=== PATIENT | female | born 1960 | race Caucasian/White ===

== ENCOUNTER → 2019-09-24 08:53 | Outpatient (CLI) | payer OTHER, SELFPAY ==
--- NOTE | ~2019-09-24 | MM_ITS ---
EXAMINATION: MM diagnostic earnestine BI w marc HISTORY: Breast pain TECHNIQUE: Additional 3-D tomosynthesis images of the breasts were performed and synthetic 2-D images were generated. CAD analysis was submitted and interpreted. COMPARISON: 12/09/2018 BREAST PARENCHYMAL COMPOSITION: Breast composed of scattered areas of fibroglandular density FINDINGS: There are no suspicious masses, calcifications or architectural distortion in either breast to suggest malignancy. IMPRESSION: 1. No mammographic evidence for malignancy. 2. Routine yearly screening mammogram and regular clinical breast examination are recommended. BI-RADS Category 1: Negative Reviewed, dictated and finalized at location A. IMPRESSION: 1. No mammographic evidence for malignancy. 2. Routine yearly screening mammogram and regular clinical breast examination a re recommended. BI-RADS Category 1: Negative
== END ==
PROVIDERS: Visit Provider Advanced Practice Midwife
DX: N64.4 Mastodynia (principal)
CPT/HCPCS: 77062; 77066; G0279

== ENCOUNTER 2021-05-01 15:41 | Outpatient (CLI) | payer OTHER, SELFPAY ==
--- NOTE | ~2021-05-01 | CT_ITS ---
EXAMINATION: CT lung screening DATE: 05/01/2021 15:53 INDICATION: Personal history of nicotine dependence, current smoker with 30 pack year history TECHNIQUE: Computed tomography (CT) of the chest was performed without intravenous contrast. The dose -length product (DLP) was 89.44 mGy-cm. Automated exposure control and iterative reconstruction techn [employer] Shiftue were employed. COMPARISON: None FINDINGS: There is mild emphysema. No suspicious pulmonary nodules are identified. The lungs are free of acute opacities. There is no pleural effusion or pneumothorax. No pathologically enlarged thoraci c lymph nodes are identified. The heart size is normal. IMPRESSION: 1. Lung-RADS category 1: Negative. Continue annual screening with noncontrast low-dose chest CT in 12 months. Reviewed, dictated and finalized at location A. 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 Lung-RADS category 1: Negative. Continue annual screening with noncontrast l ow-dose chest CT in 12 months.
== END 2021-05-01 15:42 | disposition home or self-care (01) ==
LOC: ANHIMG 15:42
PROVIDERS: PCP Family Medicine; Visit Provider Nurse Practitioner Family
DX: Z87.891 Personal history of nicotine dependence (principal)
CPT/HCPCS: 71271

== ENCOUNTER 2021-09-17 09:04 | Outpatient (CLI) | payer OTHER, SELFPAY ==
[2021-09-17 19:52] LABS: Cholesterol 142 mg/dL (0-200); HDL Direct 45 mg/dL; Triglycerides 94 mg/dL (<150)
[2021-09-17 20:03] LABS: LDL Cholesterol Direct 65 mg/dL
[2021-09-20 12:51] LABS: Alanine Aminotransferase 20 U/L (6-35); Albumin Level 4.4 g/dL (3.5-5.1); Alkaline Phosphatase 72 U/L (38-126); Anion Gap 9 mmol/L (8-16); Aspartate Amino Transferase 22 U/L (14-36); Bilirubin,Total 0.4 mg/dL (0.2-1.3); Blood Urea Nitrogen 15 mg/dL (7-17); Calcium 9.6 mg/dL (8.4-10.2); Carbon Dioxide 22 mmol/L (22-30); Chloride 109 mmol/L (98-107); Estimated Glomerular Filt Rate > 60; Glucose 128 mg/dL (65-110); Potassium 4.2 mmol/L (3.4-5.0); Sodium 140 mmol/L (137-145)
== END 2021-09-17 09:05 | disposition home or self-care (01) ==
LOC: ANHGOSHLAB 09:05
PROVIDERS: PCP Family Medicine; Visit Provider Nurse Practitioner Family
DX: E78.5 Hyperlipidemia, unspecified (principal)
CPT/HCPCS: 36415; 80053; 80061

== ENCOUNTER 2021-09-26 08:31 | Outpatient (CLI) | payer OTHER, SELFPAY ==
[2021-09-26 20:09] LABS: Alanine Aminotransferase 18 U/L (6-35); Alkaline Phosphatase 72 U/L (38-126); Anion Gap 6 mmol/L (8-16); Aspartate Amino Transferase 26 U/L (14-36); Bilirubin,Total 0.5 mg/dL (0.2-1.3); Blood Urea Nitrogen 16 mg/dL (7-17); Calcium 8.9 mg/dL (8.4-10.2); Carbon Dioxide 27 mmol/L (22-30); Chloride 104 mmol/L (98-107); Estimated Glomerular Filt Rate > 60; Glucose 147 mg/dL (65-110); Potassium 4.3 mmol/L (3.4-5.0); Sodium 137 mmol/L (137-145)
[2021-09-26 20:15] LABS: Basophils Absolute Auto 0.1 K/mm3 (0.0-0.1); Basophils Percent Auto 0.7 % (0.2-1.2); Eosinophils Percent Auto 0.5 % (0-4.4); Hematocrit 45.6 % (37.0-47.0); Hemoglobin 14.5 g/dL (12.0-15.0); Immature Granulocyte Absolute 0.04 K/mm3 (0.00-0.031); Immature Granulocyte Percent A 0.5 % (0-0.5); Lymphocytes Percent Auto 15.9 % (18.3-44.2); Mean Corpuscular HGB Conc 31.8 g/dl (32-36); Mean Corpuscular Hemoglobin 31.7 pg (26-34); Mean Corpuscular Volume 99.8 fl (80-100); Mean Platelet Volume 10.5 fl (7.4-10.4); Monocytes Absolute Auto 0.6 K/mm3 (0.1-0.6); Neutrophils Absolute Auto 6.2 K/mm3 (1.3-6.7); Neutrophils Percent Auto 75.4 % (45.5-73.1); Platelet Count Result 192 k/mm3 (150-375); Red Blood Count 4.57 M/mm3 (4.2-5.4); Red Cell Distribution Width 13.2 % (11.5-14.5); White Blood Count 8.2 K/mm3 (4.5-10.0)
[2021-09-26 20:36] LABS: Microalbumin Urine Random 12.8 mg/L (0-16.7)
[2021-09-26 20:41] LABS: Creatinine Urine 43.3 mg/dL; MALB Creatinine Ratio 29.6 mg/g (0-30)
== END 2021-09-26 08:32 | disposition home or self-care (01) ==
LOC: ANHGOSHLAB 08:32
PROVIDERS: PCP Family Medicine; Visit Provider Nurse Practitioner Family
DX: E11.9 Type 2 diabetes mellitus without complications (principal); I10 Essential (primary) hypertension
CPT/HCPCS: 36415; 80053; 82043; 83036; 85025

== ENCOUNTER → 2021-11-23 15:20 | Outpatient (CLI) | payer OTHER, SELFPAY ==
--- NOTE | ~2021-11-23 | MM_ITS ---
EXAMINATION: MM screening earnestine BI w marc HISTORY: Screening mammogram, family history of breast cancer in her sister. TECHNIQUE: Craniocaudal and mediolateral oblique 3-D tomosynthesis images were obtained and synthetic 2-D images were generated. CAD analysis was submitted and interpreted. COMPARISON: 09/24/2019, 12/09/2018, 06/11/2018 BREAST PARENCHYMAL COMPOSITION: There are scattered areas of fibroglandular density. FINDINGS: There is no suspicious mass, calcification, or architectural distortion to suggest malignan cy in either breast. There has been no suspicious interval change. IMPRESSION: 1. No mammographic evidence of malignancy. 2. Recommend routine screening mammography in one year. BI-RADS Category 1: Negative Reviewed, dictated and finalized at location A.
== END ==
PROVIDERS: PCP Family Medicine; Visit Provider Nurse Practitioner Family
DX: Z12.31 Encounter for screening mammogram for malignant neoplasm of breast (principal)
CPT/HCPCS: 77063; 77067

== ENCOUNTER 2022-07-15 13:03 | Emergency (ER) | payer OTHER, SELFPAY ==
[2022-07-15 13:25] VITALS: BP 124/53; PULSE 86; RESP 16; TEMP 36.1; O2SAT 99
--- NOTE | 2022-07-15 13:50 | ED.URI ---
HPI - URI/Sore Throat General Chief Complaint: Upper Respiratory Infection Stated Complaint: sorethroat,fever Time Seen by Provider: 07/15/22 13:50 Source: patient Mode of arrival: ambulatory Limitations: no limitations History of Present Illness HPI Narrative: 62-year-old female presents with complaint of sore throat, fatigue, body aches, chills, headaches since yesterday. 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 Denies nausea vomiting diarrhea. No chest pain or shortness breath. All systems reviewed and negative except as noted above. Related Data Home Medications Medication Instructions Recorded Confirmed aspirin 81 mg tablet,delayed 81 mg PO DAILY 03/15/19 07/15/22 release (Rachael Low Dose Aspirin) cholecalciferol (vitamin D3) 50 50 mcg PO DAILY 09/25/19 07/15/22 mcg (2,000 unit) capsule biotin 1 mg capsule 1 mg PO DAILY 09/17/21 07/15/22 meloxicam 7.5 mg tablet 7.5 mg PO DAILY 07/15/22 07/15/22 trazodone 50 mg tablet 50 mg PO QHS PRN Insomnia 07/15/22 07/15/22 Allergies Allergy/AdvReac Type Severity Reaction Status Date / Time erythromycin base AdvReac Intermediate Nausea and Verified 07/15/22 13:42 Vomiting methotrexate AdvReac Intermediate hair loss Verified 07/15/22 13:42 morphine AdvReac Intermediate vomiting Verified 07/15/22 13:42 amoxicillin AdvReac Mild yeast Verified 07/15/22 13:42 infections lovastatin AdvReac Mild aching in Verified 07/15/22 13:42 legs Review of Systems Review of Systems: CONSTITUTIONAL: Denies fever. Reports chills, or sweats. EYES: Denies visual changes, redness, or discharge. ENT: Denies rhinorrhea, congestion . Reports sore throat. Deniesotalgia. CARDIOVASCULAR: Denies chest pain, palpitations, or edema. RESPIRATORY: Denies cough or dyspnea. GASTROINTESTINAL: Denies abdominal pain, nausea, vomiting, or diarrhea. GENITOURINARY: Denies dysuria or hematuria. SKIN: Denies rash or itching. MUSCULOSKELETAL: Denies back pain, joint pain, or myalgia. NEUROLOGIC: reports headache. Denies numbness, or weakness. PSYCHIATRIC: Denies anxiety or depression. All other systems reviewed are negative, except as documented in HPI. [facility] Past Medical History Medical History (Updated 07/15/22 @ 13:55 by Iman Phelan NP) Arthritis Biceps tendon tear Emphysema/COPD Essential (primary) hypertension GERD without esophagitis Herpes zoster without complication Insomnia Left rotator cuff tear Follows with ortho for injections KEVIN on CPAP Other hyperlipidemia Plaque psoriasis Tobacco use disorder 40 pack-year history Type 2 diabetes mellitus without complications Vitamin D deficiency Surgical History Surgical History H/O cervical spine surgery (~2009) H/O section 1989, 1993 H/O elbow surgery (~2018) H/O rotator cuff surgery (~08/2020) H/O skin graft (~1977) History of appendectomy (~1979) History of carpal tunnel surgery of left wrist (~04/2021) History of decompression of ulnar nerve (~04/2021) left History of left knee replacement (~2004) History of right oophorectomy (~1984) Family History Family History Mother Family history of diabetes mellitus in first degree relative Sibling Lung cancer Lung nodule Social History Social History (Updated 03/25/22 @ 15:32 by Lucy Hardin MA) Social History: Patient is , she and her Elian live in [place]. They enjoy watching their 3 grandchildren (a 3 y/o and twin babies b. 10/2020) every Alvarez night. 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 Smoking packs per day: 0.75 Smoking cigarettes per day: 15.0 Years smoked: 35 Smoking pack-years: 26.25 Smoking status: Current every day smoker Tobacco type: cigarettes Alcohol intake: current Drinks per week: 8 Substance use: never S
== END 2022-07-15 14:00 | disposition home or self-care (01) ==
PROVIDERS: Emergency Provider Nurse Practitioner Family; PCP Family Medicine
DX: J02.0 Streptococcal pharyngitis (principal); F17.210 Nicotine dependence, cigarettes, uncomplicated; M19.90 Unspecified osteoarthritis, unspecified site; J44.9 Chronic obstructive pulmonary disease, unspecified; K21.9 Gastro-esophageal reflux disease without esophagitis; G47.33 Obstructive sleep apnea (adult) (pediatric); E11.9 Type 2 diabetes mellitus without complications; E78.49 Other hyperlipidemia; E55.9 Vitamin D deficiency, unspecified; Z96.652 Presence of left artificial knee joint; Z79.82 Long term (current) use of aspirin
CPT/HCPCS: 87880; 99213; G0463

== ENCOUNTER 2022-12-12 12:13 | Outpatient (CLI) | payer OTHER, SELFPAY ==
--- NOTE | ~2022-12-12 | MMUS_ITS ---
EXAMINATION: MM diagnostic earnestine BI w marc, US breast LT limited HISTORY: Patient felt lump at 6:00 last week, almond size. TECHNIQUE: Bilateral full field ML, MLO and CC and left spot ML and CC 3-D tomosynthesis images were performed and synthetic 2-D images were generated. CAD analysis was submitted and interpreted. High r esolution targeted ultrasound at area of clinical complaint of left breast lump at 6:00 breast ultras ound was performed. COMPARISON: 11/23/2021 bilateral screening mammogram 09/20/2019 bilateral diagnostic mammogram BREAST PARENCHYMAL COMPOSITION: There are scattered areas of fibroglandular density. FINDINGS: MAMMOGRAPHIC FINDINGS: No suspicious mass or architectural distortion, malignant calcification, skin thickening or retractio n or significant new or developing density is detected. ULTRASOUND: No suspicious mass, shadowing, cyst or other significant abnormality is detected at 6:00 3 cm from th e nipple at the area of clinical complaint. IMPRESSION: 1. No mammographic or sonographic evidence of malignancy 2. Routine annual mammographic screening is recommended BI-RADS Category 1: Negative Reviewed, dictated and finalized at location A. IMPRESSION: 1. No mammographic or sonographic evidence of malignancy 2. Routine annual mammographic screening is recommended BI-RADS Category 1: Negative
== END 2022-12-12 12:14 | disposition home or self-care (01) ==
PROVIDERS: PCP Family Medicine; Visit Provider Nurse Practitioner Family
DX: N63.0 Unspecified lump in unspecified breast (principal); R92.8 Other abnormal and inconclusive findings on diagnostic imaging of breast
CPT/HCPCS: 76642; 77062; 77066; G0279

== ENCOUNTER 2023-02-03 09:21 | Emergency (ER) | payer OTHER, SELFPAY ==
[2023-02-03] VITALS (8 sets, daily range): BP systolic 118–152; BP diastolic 57–87; PULSE 74–98; RESP 16–20; TEMP 36.6–36.8; O2SAT 98–100
[2023-02-03 11:54] LABS: Basophils Percent Auto 0.4 % (0.2-1.2); Eosinophils Percent Auto 0.1 % (0-4.4); Hematocrit 45.8 % (37.0-47.0); Hemoglobin 15.5 g/dL (12.0-15.0); Immature Granulocyte Absolute 0.09 K/mm3 (0.00-0.031); Immature Granulocyte Percent A 0.8 % (0-0.5); Lymphocytes Absolute Auto 1.44 K/mm3 (0.9-3.2); Lymphocytes Percent Auto 12.6 % (18.3-44.2); Mean Corpuscular HGB Conc 33.8 g/dl (32-36); Mean Corpuscular Hemoglobin 31.6 pg (26-34); Mean Corpuscular Volume 93.3 fl (80-100); Mean Platelet Volume 9.9 fl (7.4-10.4); Monocytes Absolute Auto 0.8 K/mm3 (0.1-0.6); Monocytes Percent Auto 6.6 % (2.6-8.5); Neutrophils Absolute Auto 9.1 K/mm3 (1.3-6.7); Neutrophils Percent Auto 79.5 % (45.5-73.1); Platelet Count Result 237 k/mm3 (150-375); Red Blood Count 4.91 M/mm3 (4.2-5.4); Red Cell Distribution Width 13.2 % (11.5-14.5); White Blood Count 11.4 K/mm3 (4.5-10.0)
[2023-02-03 12:09] LABS: Alanine Aminotransferase 23 U/L (6-35); Albumin Level 4.8 g/dL (3.5-5.1); Alkaline Phosphatase 66 U/L (38-126); Anion Gap 10 mmol/L (8-16); Aspartate Amino Transferase 35 U/L (14-36); Bilirubin,Total 0.9 mg/dL (0.2-1.3); Blood Urea Nitrogen 27 mg/dL (7-17); Calcium 9.7 mg/dL (8.4-10.2); Carbon Dioxide 21 mmol/L (22-30); Chloride 103 mmol/L (98-107); Estimated CRCL calculation 67 ml/min; Estimated Glomerular Filt Rate > 60; Glucose 146 mg/dL (65-110); Potassium 4.8 mmol/L (3.4-5.0); Sodium 134 mmol/L (137-145)
--- NOTE | 2023-02-03 12:57 | ED.GENADULT ---
HPI - General Adult General Chief complaint: Recheck/Abnormal Lab/Rx Stated complaint: HIGH BS Time Seen by Provider: 02/03/23 12:06 History of Present Illness HPI narrative: Patient is a 62-year-old female who presents ER for evaluation of elevated blood sugars. She recently underwent corticosteroid injection into her right shoulder 3 days ago. she has had elevated blood sugars since then occasionally spiking in the 400s. No fevers or chills or sweats. No swelling or redness of the joint. She has no polydipsia or polyuria. Blood sugars spike after eating. She has been taking her home medication. Related Data Home Medications Medication Instructions Recorded Confirmed aspirin 81 mg tablet,delayed 81 mg PO DAILY 03/15/19 02/03/23 release (Rachael Low Dose Aspirin) cholecalciferol (vitamin D3) 50 50 mcg PO DAILY 09/25/19 02/03/23 mcg (2,000 unit) capsule biotin 1 mg capsule 1 mg PO DAILY 09/17/21 02/03/23 meloxicam 7.5 mg tablet 7.5 mg PO DAILY 07/15/22 09/23/22 empagliflozin 25 mg tablet mg 02/03/23 (Jardiance) Allergies Allergy/AdvReac Type Severity Reaction Status Date / Time erythromycin base AdvReac Intermediate Nausea and Verified 02/03/23 11:44 Vomiting methotrexate AdvReac Intermediate hair loss Verified 02/03/23 11:44 morphine AdvReac Intermediate vomiting Verified 02/03/23 11:44 amoxicillin AdvReac Mild yeast Verified 02/03/23 11:44 infections lovastatin AdvReac Mild aching in Verified 02/03/23 11:44 legs Review of Systems Review of Systems: All systems reviewed & are unremarkable except as noted in HPI and below Constitutional: Constitutional: Denies chills, Denies fatigue and Denies fever(s) ENT: Denies nasal congestion and Denies sore throat Cardiovascular: Cardiovascular: Denies chest pain, Denies rapid heart rate and Denies radiating jaw, neck or arm pain Respiratory: Respiratory: Denies cough and Denies dyspnea Gastrointestinal: Gastrointestinal: Denies abdominal pain, Denies nausea and Denies vomiting PMF Past Medical History Medical History Arthritis Biceps tendon tear Emphysema/COPD Essential (primary) hypertension GERD without esophagitis Herpes zoster without complication Insomnia Left rotator cuff tear Follows with ortho for injections KEVIN on CPAP Other hyperlipidemia Plaque psoriasis Tobacco use disorder 40 pack-year history Type 2 diabetes mellitus without complications Vitamin D deficiency Surgical History Surgical History H/O cervical spine surgery (~2009) H/O section 1989, 1993 H/O elbow surgery (~2018) H/O rotator cuff surgery (~08/2020) H/O skin graft (~1977) History of appendectomy (~1979) History of carpal tunnel surgery of left wrist (~04/2021) History of decompression of ulnar nerve (~04/2021) left History of left knee replacement (~2004) History of right oophorectomy (~1984) Family History Family History Mother Family history of diabetes mellitus in first degree relative Sibling Lung cancer Lung nodule Social History Social History Social History: Patient is , she and her Elian live in [place]. They enjoy watching their 3 grandchildren (a 3 y/o and twin babies b. 10/2020) every Friday night. 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 Smoking packs per day: 0.75 Smoking cigarettes per day: 15.0 Years smoked: 35 Smoking pack-years: 26.25 Smoking status: Current every day smoker Tobacco type: cigarettes Alcohol intake: current Drinks per week: 8 Substance use: never Substance use type: does not use Lack of Transportation: No Lack of Food: Never True Current Housing: I Have Housing Concerned About Future Housing: No Difficulty Pa
[2023-02-03 22:53] LABS: Hemoglobin A1C 6.6 % (<5.7)
== END 2023-02-03 13:43 | disposition home or self-care (01) ==
PROVIDERS: Emergency Provider Emergency Medicine; PCP Family Medicine
DX: E11.65 Type 2 diabetes mellitus with hyperglycemia (principal); J43.9 Emphysema, unspecified; E78.49 Other hyperlipidemia; E55.9 Vitamin D deficiency, unspecified; G47.33 Obstructive sleep apnea (adult) (pediatric); K21.9 Gastro-esophageal reflux disease without esophagitis; M19.90 Unspecified osteoarthritis, unspecified site; F17.210 Nicotine dependence, cigarettes, uncomplicated; Z96.652 Presence of left artificial knee joint; Z90.721 Acquired absence of ovaries, unilateral; Z79.4 Long term (current) use of insulin; Z79.84 Long term (current) use of oral hypoglycemic drugs; Z79.82 Long term (current) use of aspirin
CPT/HCPCS: 36415; 80053; 83036; 85025; 99283

== ENCOUNTER 2023-10-05 14:48 | Emergency (ER) | payer OTHER, SELFPAY ==
[2023-10-05 14:59] VITALS: BP 143/61; PULSE 86; RESP 18; TEMP 36.6; O2SAT 98
[2023-10-05] MEDS: TETANUS,DIPHTHERIA,AC PERTUSSIS ADULT (0.5 ML) BOOSTRIX IM (15:27)
--- NOTE | 2023-10-05 15:39 | ED.WOUNDLAC ---
HPI - Wound/Laceration General Chief Complaint: Wound/Laceration Stated Complaint: would laceration lt hand Time Seen by Provider: 10/05/23 15:23 Source: patient and RN notes reviewed Mode of arrival: ambulatory Limitations: no limitations History of Present Illness HPI narrative: Patient presents today complaining of a laceration to her left 1st finger that was sustained just prior to arrival. And her were working on a mailbox when the electric screwdriver slipped and the bit cut the dorsum of her finger. Denies numbness or tingling in the finger. Currently rates her pain 6/10. She is not up-to-date on her tetanus vaccine. Related Data Home Medications Medication Instructions Recorded Confirmed aspirin 81 mg tablet,delayed 81 mg PO DAILY 03/15/19 10/05/23 release (Rachael Low Dose Aspirin) cholecalciferol (vitamin D3) 50 50 mcg PO DAILY 09/25/19 10/05/23 mcg (2,000 unit) capsule biotin 1 mg capsule 1 mg PO DAILY 09/17/21 10/05/23 Allergies Allergy/AdvReac Type Severity Reaction Status Date / Time erythromycin base AdvReac Intermediate Nausea and Verified 10/05/23 15:13 Vomiting methotrexate AdvReac Intermediate hair loss Verified 10/05/23 15:13 morphine AdvReac Intermediate vomiting Verified 10/05/23 15:13 amoxicillin AdvReac Mild yeast Verified 10/05/23 15:13 infections lovastatin AdvReac Mild aching in Verified 10/05/23 15:13 legs Review of Systems Review of Systems: CONSTITUTIONAL: Denies body aches, fever, chills, or sweats. EYES: Denies visual changes, redness, or discharge. ENT: Denies rhinorrhea, congestion, sore throat, or otalgia. CARDIOVASCULAR: Denies chest pain, palpitations, or edema. RESPIRATORY: Denies cough or dyspnea. GASTROINTESTINAL: Denies abdominal pain, nausea, vomiting, or diarrhea. GENITOURINARY: Denies dysuria or hematuria. SKIN: Denies rash, itching. + finger laceration MUSCULOSKELETAL: Denies back pain, joint pain, or myalgia. NEUROLOGIC: Denies headache, numbness, tingling, or weakness. PSYCH: Denies depression or anxiety. [facility] Past Medical History Medical History Arthritis Biceps tendon tear Emphysema/COPD Essential (primary) hypertension GERD without esophagitis Herpes zoster without complication Insomnia Left rotator cuff tear Follows with ortho for injections KEVIN on CPAP Other hyperlipidemia Plaque psoriasis Tobacco use disorder 40 pack-year history Type 2 diabetes mellitus without complications Vitamin D deficiency Surgical History Surgical History H/O cervical spine surgery (~2009) H/O section 1989, 1993 H/O elbow surgery (~2018) H/O rotator cuff surgery (~08/2020) H/O skin graft (~1977) History of appendectomy (~1979) History of carpal tunnel surgery of left wrist (~04/2021) History of decompression of ulnar nerve (~04/2021) left History of left knee replacement (~2004) History of right oophorectomy (~1984) Family History Family History Mother Family history of diabetes mellitus in first degree relative Sibling Lung cancer Lung nodule Social History Social History Social History: Patient is , she and her Elian live in [place]. They enjoy watching their 3 grandchildren (a 3 y/o and twin babies b. 10/2020) every Friday night. 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 Smoking packs per day: 0.75 Smoking cigarettes per day: 15.0 Years smoked: 35 Smoking pack-years: 26.25 Smoking status: Current every day smoker Tobacco type: cigarettes Alcohol intake: current Drinks per week: 8 Substance use: never Substance use type: does not use Lack of Transportation: No Lack of Food: Never True Current Housing: I H
[2023-10-05] MEDS: LIDOCAINE HCL 1% LOCAL INJ 2 ML AMPUL 4 ML INFILTRATE (15:42)
== END 2023-10-05 16:08 | disposition home or self-care (01) ==
PROVIDERS: Emergency Provider Nurse Practitioner; PCP Family Medicine
DX: S61.012A Laceration without foreign body of left thumb without damage to nail, initial encounter (principal); W29.8XXA Contact with other powered hand tools and household machinery, initial encounter; Z23 Encounter for immunization; F17.210 Nicotine dependence, cigarettes, uncomplicated; J44.9 Chronic obstructive pulmonary disease, unspecified; I10 Essential (primary) hypertension; K21.9 Gastro-esophageal reflux disease without esophagitis; G47.33 Obstructive sleep apnea (adult) (pediatric); E11.9 Type 2 diabetes mellitus without complications; E55.9 Vitamin D deficiency, unspecified; Z79.82 Long term (current) use of aspirin; M19.90 Unspecified osteoarthritis, unspecified site; L40.0 Psoriasis vulgaris
CPT/HCPCS: 12001; 90471; 90715; 99212; G0463

== ENCOUNTER 2024-02-10 15:20 | Outpatient (CLI) | payer OTHER, SELFPAY ==
--- NOTE | 2024-02-10 15:30 | ECG_ITS ---
Test Date: 2024-02-10 15:50:58 Measurements Intervals Jacobson Rate: 87 P: 68 NH: 163 QRS: 67 QRSD: 73 T: 55 QT: 322 QTc: 388 Interpretive Statements SINUS RHYTHM WARNING: DATA QUALITY MAY AFFECT INTERPRETATION No previous ECG available for comparison Electronically Signed On 02-11-2024 11:47:17 MOLD INSPECTOR by Ti Queen
[2024-02-10 16:33] LABS: Alanine Aminotransferase 17 U/L (6-35); Albumin Level 4.2 g/dL (3.5-5.1); Alkaline Phosphatase 74 U/L (38-126); Anion Gap 2 mmol/L (4-12); Aspartate Amino Transferase 21 U/L (14-36); Bilirubin,Total 0.4 mg/dL (0.2-1.3); Blood Urea Nitrogen 21 mg/dL (7-17); Calcium 9.2 mg/dL (8.4-10.2); Carbon Dioxide 31 mmol/L (22-30); Chloride 103 mmol/L (98-107); Estimated Glomerular Filt Rate > 60; Glucose 233 mg/dL (65-110); Potassium 4.2 mmol/L (3.4-5.0); Sodium 136 mmol/L (137-145)
== END 2024-02-10 15:21 | disposition home or self-care (01) ==
LOC: ANHSURGERY 15:23
PROVIDERS: PCP Family Medicine; Visit Provider Obstetrics & Gynecology
DX: E11.9 Type 2 diabetes mellitus without complications (principal); I10 Essential (primary) hypertension
CPT/HCPCS: 36415; 80053; 93005

== ENCOUNTER 2024-02-17 01:50 | Day surgery (SDC) | payer OTHER, SELFPAY ==
--- NOTE | 2024-02-09 15:11 | PC.NURSE ---
Report to the Outpatient Waiting Room, entrance under the green pavilion located off [facility], at time 6:00am on date __[id number] . Planned Procedure Time: 7:30am__.? Time changes happen often and if your time is changed the preop area will call you the afternoon before. - You and your visitor will be asked to self-screen and do not enter if you have any COVID symptoms. Please call surgeon if you need to reschedule. - A mask is optional within the hospital at this time. Patients may have clear liquids (water, carbonated beverages, clear teas, apple juice) until 3 hours prior to surgery with a maximum of 20 ounces. - No food from midnight until time of surgery and no smoking. This includes no chewing gum, candy or mints. Take only the following medications with a SIP of water on the morning of surgery: none DO NOT STOP ANY OF YOUR OTHER PRESCRIPTION MEDICATIONS PRIOR TO SURGERY EXCEPT THE FOLLOWING: Please do not take your vitamin d3 or your biotin for 3 days prior to surgery. Your last dose is: 02-13-24. Hold all medications the morning of surgery. Including: Atorvastatin, Lisinopril, Metformin and Prilosec. You may take your diabetic medications the evening before. Please no make-up, nail pitcairn islander, hairspray, perfume, deodorant, or body powder the day of surgery.? No jewelry (including any body piercings) or valuables the day of surgery, leave them at home.? Please take a shower or bath the night before, or the morning of, surgery with an antibacterial soap.? Wear comfortable, loose fitting clothing.? - Jewelry must be removed prior to entering the operating room.? Rings and piercings that are not removed may be cut off. - The hospital will not accept responsibility for valuables.? - Please leave all valuables, including medications, at home the day of surgery. If you are going home after surgery, a licensed limb driver must drive you home.? - NO public transportation without another adult if you receive anesthesia. - We recommend that an adult stay with you for 24 hours following discharge. - We also recommend that you do not drive, make important decision, drink alcoholic beverages, or take any drugs that were not prescribed by your health care provider for at least 24 hours after your discharge time. Follow any additional instructions given to you from your surgeon. Telephone instructions given to Zaina (Patient) and asked if any additional questions and then verbalized understanding. Patient advised to call surgeon office or pre surgery nurse liaison [phone] if any additional questions.
[2024-02-17] VITALS (8 sets, daily range): BP systolic 97–144; BP diastolic 43–60; PULSE 73–90; RESP 10–18; TEMP 36.8–36.9; O2SAT 93–100
--- NOTE | 2024-02-17 06:40 | WPDANESEPPF ---
Anes - Initial Pre Proc Eval Procedure: Operation Date: 02/17/24 07:30 Proposed Procedures p Laparoscopic Left Salpingo-oophorectomy - Michael Mcdonald MD Date/Time: 02/17/24 06:40 Surgeon: Michael Mcdonald MD Pre Op Diagnosis: Lt Ovary Mass Patient Data Age: 63 Gender: F Height: Weight: Allergies Allergy/AdvReac Type Severity Reaction Status Date / Time erythromycin base AdvReac Intermediate Nausea and Verified 02/17/24 06:46 Vomiting methotrexate AdvReac Intermediate hair loss Verified 02/17/24 06:46 morphine AdvReac Intermediate vomiting Verified 02/17/24 06:46 amoxicillin AdvReac Mild yeast Verified 02/17/24 06:46 infections lovastatin AdvReac Mild aching in Verified 02/17/24 06:46 legs Home Medications ?Medication ?Instructions ?Recorded ?Confirmed ?Type aspirin 81 mg tablet,delayed 81 mg PO DAILY 03/15/19 02/09/24 History release (Rachael Low Dose Aspirin) cholecalciferol (vitamin D3) 50 50 mcg PO DAILY 09/25/19 02/09/24 History mcg (2,000 unit) capsule flash glucose scanning reader #1 ea 09/11/20 02/09/24 Rx (FreeStyle Hien 2 Temperance) biotin 1 mg capsule 1 mg PO DAILY 09/17/21 02/09/24 History omeprazole 40 mg capsule,delayed 40 mg PO DAILY PRN for 04/29/23 02/09/24 Rx release gastroesophageal reflux disease #90 caps atorvastatin 10 mg tablet (Lipitor) 10 mg PO QHS #90 tabs 09/17/23 02/09/24 Rx fluconazole 100 mg tablet 100 mg PO DAILY #1 tablet 09/29/23 02/09/24 Rx (Diflucan) trazodone 50 mg tablet 50 mg PO QHS PRN Insomnia #90 tabs 11/11/23 02/09/24 Rx lisinopril 10 mg tablet 10 mg PO DAILY #90 tabs 11/21/23 02/09/24 Rx empagliflozin 25 mg tablet 25 mg PO DAILY #90 tabs 12/11/23 02/09/24 Rx (Jardiance) flash glucose sensor (FreeStyle #6 ea 12/16/23 02/09/24 Rx Hien 2 Sensor kit) pen needle, diabetic 31 gauge x See Rx Instructions .Route 01/08/24 02/09/24 Rx 5/16 (BD Ultra-Fine Short Pen .COMPLEX #100 ea Needle) insulin glargine 100 unit/mL 36 unit subcut HS 02/09/24 02/09/24 History subcutaneous solution metformin 1,000 mg tablet 500 mg PO BID 02/09/24 02/09/24 History Patient hx anesthesia problems: post op nausea/vomiting Family hx anesthesia problems: none Results Review: All pre-operative results and documents have been reviewed as part of the pre-operative evaluation. [facility] Past Medical History Medical History Arthritis Biceps tendon tear Emphysema/COPD Essential (primary) hypertension GERD without esophagitis Herpes zoster without complication Insomnia Left rotator cuff tear Follows with ortho for injections KEVIN on CPAP Other hyperlipidemia Plaque psoriasis Tobacco use disorder 40 pack-year history Type 2 diabetes mellitus without complications Vitamin D deficiency Surgical History Surgical History H/O cervical spine surgery (~2009) H/O section 1989, 1993 H/O elbow surgery (~2018) H/O rotator cuff surgery (~08/2020) H/O skin graft (~1977) History of appendectomy (~1979) History of carpal tunnel surgery of left wrist (~04/2021) History of decompression of ulnar nerve (~04/2021) left History of left knee replacement (~2004) History of right oophorectomy (~1984) Family History Family History Mother Family history of diabetes mellitus in first degree relative Sibling Lung cancer Lung nodule Social History Social History Social History: Patient is , she and her Elian live in [place]. They enjoy watching their 3 grandchildren (a 3 y/o and twin babies b. 10/2020) every Alvarez night. 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 Smoking packs per day: 0.75 Smoking cigarettes per day: 15.0 Years smoked: 40 Smoking pack-years: 30.00 Smoking status: Current every day smoker Tobacco type: cigarettes Second hand tobacco smoke exposure: Yes Alcohol intake: current Drinks per week: 8 Substance use: never Substance use type: does not use Lack of Transportation: No Lack of Food: Never True Current Housing: I Have Housing Concerned About Future Housing: No Difficulty Paying Gas/Electric Bills: No Difficulty Paying for Meds: No Currently Unemployed: No Education: Master's Degree or Higher Difficulty w/ Childcare or Family Care: No Living arrangements: with family Occupation/Education: occupation 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 Informed Consent: The patient's anesthetic plan and its attendant risks and benefits were discussed with the patient/family/POA. Questions were solicited and answers provided to the satisfaction of the patient/family/POA.
[2024-02-17 06:47] LABS: Glucose Point of Care 154 mg/dl (65-105)
--- NOTE | 2024-02-17 07:14 | WPDHPUPDATE1 ---
History and Physical Update Update Date/Time: 02/17/24 07:14 History and Physical has been reviewed, including an updated exam of the patient. There are NO changes in the patient's condition. Risks, benefits, and alternatives have been discussed and questions answered. Patient agrees to proceed with procedure.
[2024-02-17] MEDS: LACTATED RINGERS 1,000 ML 30 ML IV CONT (07:15)
[2024-02-17] MEDS: ACETAMINOPHEN 500 MG TABLET 1000 MG PO (07:20)
[2024-02-17] MEDS: KETOROLAC 15 MG/ML VIAL (*BKC) IV PUSH (07:20)
[2024-02-17] MEDS: fentaNYL CITRATE INJ (*CRX) 100 MCG/2 ML VIAL 25 MCG IV PUSH ×4 (08:42→08:55)
--- NOTE | 2024-02-17 08:43 | W.PM.PROC2 ---
Procedure Note - Detailed Date of Procedure 02/17/24 Pre-op Diagnosis Lt Ovary Mass Post-op Diagnosis Same (With pelvic adhesions) Procedure Performed Adhesiolysis-20 minutes, laparoscopic left salpingo-oophorectomy Surgeon Michael Mcdonald MD Anesthesia General Indications Ovarian mass Findings Adhesions between the anterior abdominal wall the omentum from the pubic symphysis to the umbilicus. Irregular surface to the left ovary, slightly larger than expected. Normal uterus. Absent right ovary and fallopian tube. Description of Procedure The patient was taken to the operating room. She was prepped and draped in the dorsal lithotomy position after induction general anesthesia. A 5 mm incision was made with a scalpel on the abdominal skin in the left upper quadrant of the abdomen. A 5 mm trocar was inserted into the intra-abdominal cavity under direct visualization the scope. In the same fashion a 11 mm left lower quadrant trocar was inserted and a 11 mm infraumbilical trocar was inserted. 20 minutes of adhesiolysis was performed using blunt and sharp dissection along with cautery. There were adhesions between the anterior abdominal wall and the omentum. This was from the umbilicus down to the pubic symphysis. The left ovary was raised. The infundibulum pelvic ligament was cauterized transected with LigaSure cautery after identifying the ureter. The mesosalpinx between the left fallopian tube and the round ligament were cauterized transected in a stepwise fashion around to the uterine cornua. The fallopian tube was then cauterized and transected with LigaSure along with the suspensory ligament the ovary. The ovaries placed in endobag along with 2, and the specimens were taken at the left lower quadrant trocar site pelvic washings were obtained with an aspirate her and some irrigation. The pelvis was irrigated. The pneumoperitoneum was reduced. The trocars were removed. Skin was closed with subcuticular 4 micro. The patient's incisions were covered with Dermabond. She was taken recovery room in stable condition. Sponge lap and needle counts were correct x2. Pathology Yes Complications No immediate complications Condition Stable Disposition Same day
[2024-02-17 08:50] LABS: Glucose Point of Care 144 mg/dl (65-105)
[2024-02-17] MEDS: oxyCODONE HCL (*CRX) 5 MG TAB IR PO (09:15)
== END 2024-02-17 10:04 | disposition home or self-care (01) ==
PROVIDERS: PCP Family Medicine; Visit Provider Obstetrics & Gynecology
PROC: (CPT 49320; principal; 2024-02-17 07:30)
DX: N83.292 Other ovarian cyst, left side (principal); N94.89 Other specified conditions associated with female genital organs and menstrual cycle; K66.0 Peritoneal adhesions (postprocedural) (postinfection); L72.0 Epidermal cyst; D19.1 Benign neoplasm of mesothelial tissue of peritoneum; G89.18 Other acute postprocedural pain; I10 Essential (primary) hypertension; E11.9 Type 2 diabetes mellitus without complications; E78.00 Pure hypercholesterolemia, unspecified; K21.9 Gastro-esophageal reflux disease without esophagitis; E55.9 Vitamin D deficiency, unspecified; E78.49 Other hyperlipidemia; J43.9 Emphysema, unspecified; F41.9 Anxiety disorder, unspecified; G47.00 Insomnia, unspecified; M19.90 Unspecified osteoarthritis, unspecified site; F17.210 Nicotine dependence, cigarettes, uncomplicated; G47.33 Obstructive sleep apnea (adult) (pediatric); Z99.89 Dependence on other enabling machines and devices; Z79.84 Long term (current) use of oral hypoglycemic drugs; Z79.82 Long term (current) use of aspirin; Z79.4 Long term (current) use of insulin; Z98.890 Other specified postprocedural states; Z98.1 Arthrodesis status; Z98.51 Tubal ligation status; Z80.49 Family history of malignant neoplasm of other genital organs; Z80.1 Family history of malignant neoplasm of trachea, bronchus and lung
CPT/HCPCS: 58661; 82948; 88108; 88305; A9270; J1100; J1885; J2003; J2250; J2405; J2704; J3010; J7120

== ENCOUNTER 2024-03-29 15:43 | Outpatient (CLI) | payer OTHER, SELFPAY ==
--- NOTE | ~2024-03-29 | CT_ITS ---
EXAMINATION:CT lung screening DATE: 03/29/2024 16:10 INDICATION: Personal history of nicotine dependence. TECHNIQUE: Computed tomography (CT) of the chest was performed without intravenous contrast. Automate d exposure control and iterative reconstruction technique were employed. The dose-length product (DLP ) was 69.18 mGy-cm. COMPARISON: Chest CT 05/01/2021 FINDINGS: There is mild emphysema. There is mild atelectasis bilaterally. No pleural effusion. The he art size is normal. No pericardial effusion. There is mild thoracic spondylosis. There are changes of anterior fusion procedure in cervical spine. IMPRESSION: 1. Lung-RADS category 1: Negative. Continue annual screening with noncontrast low-dose chest CT in 12 months. Reviewed, dictated and finalized at location A. LITY TECHNICIAN IMPRESSION: 1. Lung-RADS category 1: Negative. Continue annual screening with noncontrast l ow-dose chest CT in 12 months.
--- OUTSIDE RECORDS SUMMARY | 2024-03-29 16:30 | XMS_ITS | Clinical Summary ---
Author Organization [facility] Address [address] [address] Care Team Providers Care Converting Supervisor Name Role Phone Conrad Rodriguez MD Primary Care Provider Allergies Active Allergy Reactions Criticality Noted Date Comments Amoxicillin Hives Medium Amoxicillin-Pot Clavulanate Hives,Other (See comments) High 09/25/2009 Yeast infection Erythromycin Nausea & Vomiting Low 09/25/2009 Sensitivity /gi upset Morphine Vomiting Low Potassium Clavulanate Hives Medium 05/03/2011 Medications lisinopriL (PRINIVIL,ZESTRIL) 10 mg tabletIndications: hypertension Take 1 tablet (10 mg total) by mouth nightly 07/24/19 18 Active biotin 10,000 mcg capsuleIndications :to prevent hair loss Take 1 capsule (10,000 mcg total) by mouth nightly Active clobetasol (TEMOVATE) 0.05 % cream Apply 1 application topically 2 (two) times a day as needed (psoriasis) 01/12/20 19 Active acyclovir (ZOVIRAZ) 5 % creamIndications:R ecurrent Herpes Simplex Labialis Apply 1 application (deactivated) topically 3 (three) times a day as needed (blisters) 03/16/19 20 Active ibuprofen (ADVIL,MOTRIN) 400 mg tablet Take 2 tablets (800 mg total) by mouth every 6 (six) hours as needed for pain Active metFORMIN (GLUCOPHAGE) 1,000 mg tabletIndications: type 2 diabetes mellitus Take 2 tablets (2,000 mg total) by mouth nightly Active aspirin 81 mg enteric coated tabletIndications: primary prevention of coronary heart disease Take 1 tablet (81 mg total) by mouth nightly Active omeprazole (PriLOSEC) 40 mg capsuleIndications :Treatment of Non-Bleeding Gastric Disorder Take 1 capsule (40 mg total) by mouth daily as needed 12/30/19 20 Active traZODone (DESYREL) 50 mg tabletIndications: insomnia associated with depression Take 1 tablet (50 mg total) by mouth nightly 03/07/19 21 Active methocarbamoL (ROBAXIN) 500 mg tablet Take 1 tablet (500 mg total) by mouth nightly as needed for muscle spasms 20 tablet 07/04/19 21 Active atorvastatin (LIPITOR) 10 mg tabletIndications: hyperlipidemia Take 1 tablet (10 mg total) by mouth nightly Active empagliflozin (JARDIANCE) 25 mg tabletIndications: type 2 diabetes mellitus Take 0.5 tablets (12.5 mg total) by mouth nightly Active cholecalciferol (VITAMIN D-3) 5,000 unit capsule Take 1,000 Units by mouth nightly Active insulin glargine (insulin glargine) 100 unit/mL (3 mL) pen for injectionIndicatio ns:DM Inject 34 Units under the skin nightly Toujeo Active flash glucose scanning reader (FreeStyle Hien 14 Day [place]) misc every 14 (fourteen) days Active ZINC ORALIndications:he alth Take 50 mg by mouth explosive technician before breakfast Active oxyCODONE (ROXICODONE) 5 mg immediate release tabletIndications: Pain Take 1-2 tablets (5-10 mg total) by mouth every 4 (four) hours as needed for pain 40 tablet 08/20/19 23 Active ondansetron ODT (ZOFRAN-ODT) 4 mg disintegrating tabletIndications: Prevention of Post-Operative Nausea and Vomiting Take 1 tablet (4 mg total) by mouth every 8 (eight) hours as needed for nausea or vomiting 20 tablet 08/20/19 23 Active acetaminophen (TYLENOL) 500 mg tabletIndications: Pain Take 2 tablets (1,000 mg total) by mouth every 6 (six) hours 60 tablet 1 08/20/19 23 Active Active Problems Problem Noted Date Diagnosed Date Tear of rotator cuff 07/31/2022 Cubital tunnel syndrome on 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 Overview (07/11/2021): Added automatically from request for surgery [id number] Guyon syndrome, 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 Overview (07/11/2021): Added automatically from request for surgery [id number] Hypertension 09/26/2020 Hyperlipidemia 09/26/2020 KEVIN on CPAP 09/26/2020 Type 2 diabetes mellitus 09/26/2020 Biceps tendinitis of right upper extremity 09/18 Overview (09/18/2020): Added automatically from request for surgery [id number] Glycosuria 04/29/2019 Lateral epicondylitis of left elbow 08/19/2018 Overview (08/19/2018): Added automatically from request for surgery [id number] Cyst of ovary 05/14/2018 Smoker 11/14/2017 Menopause present 11/14/2017 Overweight with body mass index (BMI) 25.0-29.9 03/31/2017 Disorder of rotator cuff 01/08/2016 Medial epicondylitis of elbow 01/08/2016 Pain in shoulder 10/12/2015 Elbow pain 10/05/2015 Postmenopausal bleeding 08/24/2014 Postcoital bleeding 08/08/2014 Atrophic vaginitis 03/26/2014 Dyspareunia 03/25/2014 Tobacco dependence syndrome 08/19/2013 Increased frequency of urination 08/19/2013 Depressive disorder 08/19/2013 Knee pain 05/28/2013 test negative 02/06/2012 Dysmenorrhea 02/06/2012 Encounter for screening for malignant neoplasm o f colon 06/27/2010 Immunizations Name Administration Dates Next Due Influenza, Quadrivalent, Spl it, Preservative Free, Intramuscular 01/03/2018 Influenza, Trivalent, IM (MDV) 02/03/2017,2013 Influenza, Trivalent, Preservative Free, Intramu scular 12/26/2015 Surgical History Surgery Date Site/Laterality Comments APPENDECTOMY 03/03/1979 - 03/02/1980 Appendectomy SECTION 1989, 1993 ELBOW DEBRIDEMENT 03/03/2008 - 03/02/2009 Left had chipped elbow CERVICAL SPINE SURGERY 03/03/2011 - 03/02/2012 C3-7 fusion, hardware, full ROM RIGHT OOPHORECTOMY 03/03/1984 - 03/02/1985 benign tumor FLUORO GUIDED INJECTION SHOULDER RIGHT 07/23/2019 Right TOTAL KNEE ARTHROPLASTY 03/03/2004 - 03/02/2005 Left FLUORO GUIDED INJECTION SHOULDER RIGHT 04/02/2021 Right FLUORO GUIDED INJECTION SHOULDER RIGHT 07/03/2021 Right FLUORO GUIDED INJECTION SHOULDER RIGHT 12/04/2021 Right CARPAL TUNNEL RELEASE 03/03/2021 - 03/02/2022 Left FLUORO GUIDED INJECTION SHOULDER RIGHT 01/31/2023 Right Medical History Medical History Date Comments Hypertension Hypertension Hyperlipidemia Psoriasis DM2 (diabetes mellitus, type 2) (HCC) Tobacco dependency Chronic pain disorder right shou lder and arm PONV (postoperative nausea and vomiting) GERD (gastroesophageal reflux disease) well controlled Insomnia Sleep apnea 2016 CPAP Family History * Patient is adopted Medical History Relation Name Comments Other Brother 2 Alive and well; Other Father Unknown; Other Mother Alive and well; Other Sister 2 Alive and well; Anesthesia problems Neg Hx Relation Name Status Comments Brother 1 Alive Brother 2 Father Mother Alive Sister 1 Alive Sister 2 Social History Tobacco Use Types Packs/Day Years Used Date Smoking Tobacco: Every Day Cigarettes 0.5 37.1 Started: 1987 Smokeless Tobacco: Never Alcohol Use Standard Drinks/Week Comments Yes 5 (1 standard drink = 0.6 oz pur e alcohol) SOCIAL AUDIT-C Answer Date Recorded Q1: How often do you have a drink containing alcohol? Never 08/19/2022 Q2: How many drinks containi ng alcohol do you have on a typical day when you are drinking? Patient does not drink Q3: How often do you have si x or more drinks on one occasion? Never 08/19/2022 Personal Safety Answer Date Recorded Have you ever been in or are you currently in a harmful physical or emotional relationship or is someone making you feel afraid or unsafe? 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 Gender Identity Not on file Sexual Orientation Not on file Obstetrics History Para Term AB IAB SAB Ectopic Multiple Livin g Live Births 3 2 Date Outcome GA Total Labor Labor/2nd/3rd Weight Sex Type Anes PTL Caron A1 A5 Name Clin Para Para Last Filed Vital Signs Vital Sign Reading Time Taken Comments Blood Pressure 133/57 08/19/2022 4:00 PM CDT Pulse 86 08/19/2022 3:50 PM CDT Temperature 36.7 ??C (98.1 ??F) 08/19/2022 3:16 PM CD T Respiratory Rate 18 08/19/2022 3:50 PM CDT Oxygen Saturation 90% 08/19/2022 3:50 PM CDT Inhaled Oxygen Concentration - - Weight 63.5 kg (140 lb) 08/02/2022 3:35 PM CDT Height 158.8 cm (5' 2.5 ) 08/02/2022 3:35 PM CDT Body Mass Index 25.2 08/02/2022 3:35 PM CDT Plan of Treatment Health Maintenance Due Date Last Done Comments Albumin Creatinine Ratio, Urine 1962 Cervical Cancer Screening 1962 Colon Cancer Screening-Colonoscopy 1962 Depression Screening 1962 Hemoglobin A1C 1962 Hepatitis C Screening 1962 eGFR 1962 Dilated Eye Exam 1962 Foot Exam 1962 Lipid Panel 1962 Pneumococcal vaccine <65 (1 of 2 - PCV) 1968 DTaP/Tdap/Td Vaccine (1 - Tdap) 1973 Hepatitis B Screening 1980 Regular Well Visit/Exam 18-64 1980 Breast Cancer Screening-Mammogram 09/25/2010 010 Zoster Vaccine (2 of 2) 08/01/2020 06/06/2020 Influenza Vaccine (#1) 2023 0, 01/03/2018, 02/03/2017, Additional history exists Medical Devices Implanted Type Area Municipal Bond Trader Device Identifier Shelf Expiration Date Model / Serial / Lot Free Stle Hien N/A: Arm Description:Free style hien [employer] Ar-3670 Set Implant Arthrex Fibertak Biceps Sterile Latex Free - [id number] Implanted:Qty: 1 on 09/28/2020 by Enoc Cullen MD at [facility] Right: Shoulder [employer] 07/31/2025 AR-3670 / / [id number] [employer] Ar-2324 Bcm Swivelock 4.75mm 24.5mm Self Punch Vent Shoulder Surry Suture - [id number] Implanted:Qty: 1 on 09/28/2020 by Enoc Cullen MD at [facility] Right: Shoulder [employer] 05/31/2024 AR-2324BC M / / [id number] [employer] Swivelock C 4.75mm 19.1mm Closed Eyelet Vent Surry Suture Ar-2324bcc - [id number] Implanted:Qty: 1 on 08/19/2022 by Levar Morris MD at [facility] Right: Shoulder [employer] [id number] 05/31/2026 AR-2324BC C / / [id number] [employer] Swivelock C 4.75mm 19.1mm Closed Eyelet Vent Surry Suture Ar-2324bcc - [id number] Implanted:Qty: 1 on 08/19/2022 by Levar Morris MD at [facility] Right: Shoulder [employer] [id number] 05/31/2026 AR-2324BC C / / [id number] [employer] Arthrex Fibertak Tape 3 Load Rotator Cuff Surry Suture Sterile Latex Free Ar-3633 - [id number] Implanted:Qty: 1 on 08/19/2022 by Levar Morris MD at [facility] Right: Shoulder [employer] 03/02/2027 AR-3633 / / [id number] Insurance [facility] CHO[facility]PPO Address: [address] [address] [place] [address] [facility]/PPO Address: [address] [address] [place] [id number] CHOICE PLUS [facility] H[facility]/PPO Address: [address] [address] [place] [address] [place] [address] [address] [place] [address] WORKERS COMPENSATION GENERIC Care Teams Converting Supervisor Relationship Specialty Start Date End Date Conrad Rodriguez MD PCP - General Family Practice 03/28/21
--- OUTSIDE RECORDS SUMMARY | 2024-03-29 16:30 | XMS_ITS | Referral Summary ---
Author Organization 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 Overview (07/11/2021): Added automatically from request for surgery [id number] Hypertension 09/26/2020 Hyperlipidemia 09/26/2020 KEVIN on CPAP 09/26/2020 Type 2 diabetes mellitus 09/26/2020 Biceps tendinitis of right upper extremity 09/18 Overview (09/18/2020): Added automatically from request for surgery [id number] Glycosuria 04/29/2019 Lateral epicondylitis of left elbow 08/19/2018 Overview (08/19/2018): Added automatically from request for surgery [id number] Cyst of ovary 05/14/2018 Smoker 11/14/2017 Menopause [...] Influenza, Trivalent, Preservative Free, Intramu scular 12/26/2015 Social History Tobacco Use Types Packs/Day Years [...] on file 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 Gender Identity Not on file Sexual Orientation Not on file Last Filed Vital Signs Vital Sign Reading [...] 08/02/2022 3:35 PM CDT Plan of Treatment Not on file Medical Devices Implanted Type Area Psychology Technician Device Identifier Shelf Expiration Date Model / Serial / Lot Free Stle Hien N/A: Arm Description:Free style hien [employer] Ar-3670 Set Implant Arthrex Fibertak Biceps Sterile Latex Free - [id number] Implanted:Qty: 1 on 09/28/2020 by Enoc Cullen MD at [facility] Right: Shoulder [employer] 07/31/2025 AR-3670 / / [id number] [employer] Ar-2324 Bcm Swivelock 4.75mm 24.5mm Self Punch Vent Shoulder [place] Suture - [id number] Implanted:Qty: 1 on 09/28/2020 by Enoc Cullen MD at [facility] Right: Shoulder [employer] 05/31/2024 AR-2324BC M / / [id number] [employer] Swivelock C 4.75mm 19.1mm Closed Eyelet Vent [place] Suture Ar-2324bcc - [id number] Implanted:Qty: 1 on 08/19/2022 by Levar Morris MD at [facility] Right: Shoulder [employer] [id number] 05/31/2026 AR-2324BC C / / [id number] [employer] Swivelock C 4.75mm 19.1mm Closed Eyelet Vent [place] Suture Ar-2324bcc - [id number] Implanted:Qty: 1 on 08/19/2022 by Levar Morris MD at [facility] Right: Shoulder [employer] [id number] 05/31/2026 AR-2324BC C / / [id number] [employer] Arthrex Fibertak Tape 3 Load Rotator Cuff [place] Suture Sterile Latex Free Ar-3633 - [id number] Implanted:Qty: 1 on 08/19/2022 by Levar Morris MD at [facility] Right: Shoulder [employer] 03/02/2027 AR-3633 / / [id number] Insurance [facility] CHOICE PLUS [facility] CHOICE PLUS [facility] CHOICE PLUS WORKERS COMPENSATION GENERIC WORKERS COMPENSATION GENERIC Care Teams Head Athletic Trainer Relationship Specialty Start Date End Date Conrad Rodriguez MD PCP - General Family Practice 03/28/21
--- OUTSIDE RECORDS SUMMARY | 2024-03-29 16:30 | XMS_ITS | Clinical Summary ---
Author Organization [facility] Address [address] [place] [address] Phone Care Team Providers Care Heavy Threader Name Role Phone Floyd Gamez MD Primary Care Provider Unavailab le Allergies Active Allergy Reactions Criticality Noted Date Comments Amoxicillin-Pot Clavulanate Other (See Comments) High 09/25/2009 Yeast infection Erythromycin Nausea and Vomiting Low 09/25/2009 Medications metFORMIN (GLUCOPHAGE) 1,000 mg Oral tablet Take 1,000 mg by mouth 2 times daily with meals. Active aspirin (JACK) 81 mg Oral Tab Take 81 mg by mouth daily. Active metoprolol succinate ER 24 hour (TOPROL-XL) 50 mg Oral tablet Take 50 mg by mouth daily. Active Active Problems Patient Care Coordination No te Formatting of this note migh t be different from the original. Primary Care: Floyd Gamez MD Referring Provider: Floyd Gamze [address] [facility] * [place] [address] Other: No known active problems Family History Medical History Relation Name Comments Other Mother diabetes Breast Cancer Sister dx @ age 47 Relation Name Status Comments Mother Sister Social History Tobacco Use Types Packs/Day Years Used Date Smoking Tobacco: Every Day Cigarettes 3 30 Alcohol Use Standard Drinks/Week Comments Yes 0 (1 standard drink = 0.6 oz pur e alcohol) moderate Comments Unknown Sex and Gender Information Value Date Recorded Sex Assigned at Not on file Legal 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 5:54 AM DENITRATOR 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 Gender Identity Not on file Sexual Orientation Not on file Occupation Industry Job Start Date Job End Date Not on file Not on file Not on file Not on file Last Filed Vital Signs Vital Sign Reading Time Taken Comments Blood Pressure 115/81 09/25/2009 12:19 PM CDT Pulse - - Temperature - - Respiratory Rate - - Oxygen Saturation - - Inhaled Oxygen Concentration - - Weight 67.1 kg (148 lb) 09/25/2009 12:19 PM CDT Height 158.8 cm (5' 2.5 ) 09/25/2009 12:19 PM CD T Body Mass Index 26.64 09/25/2009 12:19 PM CDT Plan of Treatment Health Maintenance Due Date Last Done Comments PNEUMOCOCCAL VACCINE 0-64 YE ARS (1 of 2 - PCV) 1968 DTAP/TDAP/TD VACCINES (1 - Tdap) 1981 CERVICAL CANCER SCREENING 1992 COLORECTAL SCREENING 05/22/2007 Colorectal Cancer Screening 05/22/2007 FIT-DNA Q 3 years 05/22/2007 FIT/FOBT Q 1 year 05/22/2007 Flex Sig/CT Colonography Q 5 years 05/22/2007 BREAST CANCER SCREENING 09/25/2010 09/26/19 10, 06/04/2006, 11/13/2005, Additional history exists ZOSTER VACCINE (1 of 2) 2012 INFLUENZA VACCINE (#1) 2023 RSV VACCINE (60+ or ) (1 - 1-dose 75+ series) 2037 Procedures Procedure Name Priority Date/Time Associated Diagnosis Comments MAMMO SCREEN BILAT W OR WO CAD Routine 09/25/2009 Diffuse Cystic Mastopathy Family History of Malignant Neoplasm of Breast from Last 3 Months or Most Recently Relevant to Health Maintenance Results * MAMMO DIGITAL SCREEN BILAT (09/25/2009) Anatomical Region Laterality Modality Breast Bilateral Other Brenna Lao MD MAMMO ORDERABLES Final Result from Last 3 Months or Most Recently Relevant to Health Maintenance Insurance [facility] [id number] Care Teams Heavy Threader Relationship Specialty Start Date End Date Floyd Gamez MD PCP - General Family Practice 09/25/09
--- OUTSIDE RECORDS SUMMARY | 2024-03-29 16:30 | XMS_ITS | Clinical Summary ---
Author Organization [facility] Address [address] [place] [address] Care Team Providers Care Loom Fixer Name Role Phone Unavailable Primary Care Provider Unavailabl e Source Comments [facility],non-owned Affiliates and Associated Physician Practices is amultiple site organization consisting of ambulatory clinics and hospital sitesin [place], [place], [place] and [place]. This disclosure is being madepursuant to the Care Everywhere program and may not contain all information available regarding this patient. Last updated 17.[facility] Allergies Active Allergy Reactions Criticality Noted Date Comments Augmentin 06/29/2013 Erythromycin 06/29/2013 Sensitivity /gi upset Medications * Be aware that medications may not be up to date on this document. Alwaysverify current medications with the patient. Medication Sig Dispensed Refills Start Date End Date Status metFORMIN (GLUCOPHAGE) 500 MG tablet Take 2 Tabs by mouth once daily. Active metoprolol tartrate IR (LOPRESSOR) 50 MG tablet Take 1 Tab by mouth once daily. Active insulin glargine (LANTUS) injection 200 Units at bedtime. Active aspirin 81 MG tablet Take 1 Tab by mouth once daily. Active Immunizations Name Administration Dates Next Due INFLUENZA VACCINE, QUADR. (F LUZONE; FLULAVAL; FLUARIX; AFLURIA QUADRIVALENT; 6MO+), 0.5 ML (IIV4) 11/25/2019,01/03/2018 Social History Tobacco Use Types Packs/Day Years Used Date Smoking Tobacco: Every Day Cigarettes 0.8 30 Smokeless Tobacco: Never Alcohol Use Standard Drinks/Week Comments Yes 5 (1 standard drink = 0.6 oz pur e alcohol) Sex and Gender Information Value Date Recorded Sex Assigned at Not on file Gender Identity Not on file Sexual Orientation Not on file Last Filed Vital Signs Vital Sign Reading Time Taken Comments Blood Pressure 121/77 06/29/2013 12:43 PM CDT Pulse 76 06/29/2013 12:43 PM CDT Temperature 36.8 ??C (98.2 ??F) 06/29/2013 12:43 PM C DT Respiratory Rate 16 06/29/2013 12:43 PM CDT Oxygen Saturation 99% 06/29/2013 12:43 PM CDT Inhaled Oxygen Concentration - - Weight 74.8 kg (165 lb) 06/29/2013 12:43 PM CDT Height 157.5 cm (5' 2 ) 06/29/2013 12:43 PM CDT Body Mass Index 30.18 06/29/2013 12:43 PM CDT Plan of Treatment Health Maintenance Due Date Last Done Comments COLOGUARD (AGES 45-75) - COLON CA SCREENING 1962 COLON MONITORING 1962 COLONOSCOPY - COLON CA SCREENING 1962 CT COLONOGRAPHY - COLON CA SCREENING 1962 Colorectal Cancer Screening 1962 FIT - COLON CA SCREENING 1962 FLEX SIG - COLON CA SCREENING 1962 LIPID TESTING 1962 MAMMOGRAM 1962 PAP SMEAR 1962 HIV SCREENING 1977 HEPATITIS C SCREENING 05/16/1980 DTAP/TDAP/TD VACCINES (1 - Tdap) 1981 PNEUMOCOCCAL VACCINE 50+ (1 of 2 - PCV) 1981 PNEUMOCOCCAL VACCINE (1 of 2 - PCV) 1981 ZOSTER VACCINE (1 of 2) 2012 COVID-19 VACCINE ( - season) 2023 INFLUENZA VACCINE (#1) 2023 0, 01/03/2018, 02/03/2017, Additional history exists DEPRESSION SCREENING 03/03/2024 Respiratory Syncytial Virus (RSV) Vaccine Pt: or over 60 yrs (1 - 1-dose 75+ series) 2037 HEPATITIS B VACCINE Aged Out No longe r eligible based on patient's age to complete this topic HIB VACCINE Aged Out No longer eligi ble based on patient's age to complete this topic HPV VACCINE Aged Out No longer eligi ble based on patient's age to complete this topic MENINGOCOCCAL (Group B) VACCINE Aged Out No longer eligible based on patient's age to complete this topic MENINGOCOCCAL VACCINE Aged Out No tammy rafaela eligible based on patient's age to complete this topic
--- OUTSIDE RECORDS SUMMARY | 2024-03-29 16:30 | XMS_ITS | Encounter Summary ---
Author Organization [facility] Address [address] [place] [address] Care Team Providers Care Maintenance Technician Name Role Phone Unavailable Primary Care Provider Unavailabl e Encounter Details Date Type Department Care Team (Late st Contact Info) Description 12/02/2019 Lab Requisition [facility] [address] [place] [address] Sesar Ramos MD [address] [place] [address] Social History Tobacco Use Types Packs/Day Years Used Date Smoking Tobacco: Every Day Cigarettes 0.8 30 Smokeless Tobacco: Never Alcohol Use Standard Drinks/Week Comments Yes 5 (1 standard drink = 0.6 oz pur e alcohol) Sex and Gender Information Value Date Recorded Sex Assigned at Not on file Gender Identity Not on file Sexual Orientation Not on file COVID-19 Exposure Response Date Recorded In the last month, have you been in contact with someone who was confirmed or suspected to have Coronavirus / COVID-19? No / Unsure 11/25/2019 1:22 PM CDT documented as of this encounter Plan of Treatment Not on file documented as of this encounter Procedures Procedure Name Priority Date/Time Associated Diagnosis Comments DERMATOPATHOLOGY Routine 12/01/2019 12:0 0 AM CDT documented in this encounter Results * DERMATOPATHOLOGY (12/01/2019 12:00 AM CDT) Case Report Dermatopathology Report ? Case: [id number] ? Authorizing Provider: ??Sesar Ramos MD ?Collected: ? 12/01/2019 12:00 AM ? Ordering Location: ? [facility] Lab ?Received: ?12/02/2019 11:38 AM ? Pathologist: ? Heidi Chavarria MD ? Specimens: ?? A) - Skin, left upper back ? B) - Skin, right little toe ? 0 2:57 PM CDT DERMATOPATHOLOGY LABORATORY Amended Report General clerical error 0 2:57 PM CDT DERMATOPATHOLOGY LABORATORY Final Diagnosis Specimen A. SKIN, left upper back: SEBORRHEIC KERATOSIS, MACULAR (L82.1) TATTOO (L81.8) Specimen B. 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 B: R/O BCC. 0 2:57 PM T DERMATOPATHOLOGY LABORATORY Gross Description Specimen A: Received is one formalin filled container labeled with the patient's name and designated left upper back. The specimen consists of a shave biopsy measuring [id number]. Jar 0. Specimen B: Received is one formalin filled container labeled with the patient's name and designated right little toe. The specimen consists of a shave biopsy measuring [id number]. Jar 0. 0 2:57 PM CDT DERMATOPATHOLOGY LABORATORY Microscopic Description Specimen A. SKIN, left upper back: Sections show a relatively broad, flat proliferation of small keratinocytes. The surface is gently papillated, and there is increased basilar pigmentation. There is granular pigment in macrophages and free within the dermis. Specimen B. SKIN, right little toe: Sections show papillomatosis and hypergranulosis with overlying focal parakeratosis. The base of the lesion is not visualized. There is a dome-shaped portion of skin with psoriasiform epidermal hyperplasia, compact hyperkeratosis, and fibrosis of the papillary dermis associated with a superficial perivascular lymphohistiocytic infiltrate. 0 2:57 PM T DERMATOPATHOLOGY LABORATORY Disclaimer An external and internal positive and negative controls are appropriate for the histochemical, immunohistochemical and immunofluorescence stain(s) in this case (if any), except where stated explicitly. The performance characteristics of the stain(s) cited in this report were developed and its performance characteristic determined by the Dermatopathology Laboratory at [facility], directed by Dr. Ayah Chavarria. These tests need not be, and therefore are not, approved by the [place] Food and Drug Administration. The tests are used for clinical purposes. Billing Codes Specimen Charges Stain Charges 63377 [id number] 1 1 0 2:57 PM CDT DERMATOPATHOLOGY LABORATORY Embedded Images 0 2:57 PM CDT DERMATOPATHOLOGY LABORATORY Pathology/Cytology TISSUE SPECIMEN FROM SKIN / Unknown 12/01/2019 12/02/2019 11:38 AM CDT Miscellaneous samples (specimen) TISSUE SPECIMEN FROM SKIN / Unknown 12/01/2019 12/02/2019 11:38 AM CDT Sesar Ramos MD LAB - PATHOLOGY/CYTO LOGY ORDERABLES DERMATOPATHOLOGY LABORATORY [facility] - Department of Dermatology [facility] [address] [place] [address], [address] [phone] documented in this encounter Visit Diagnoses Not on filedocumented in this encounter
--- OUTSIDE RECORDS SUMMARY | 2024-03-29 16:30 | XMS_ITS | Data Portability ---
Author Organization [facility] [place] Address [address] [place] [address] [place] [address] Care Team Providers Care Obedience Trainer Name Role Phone ADELAIDE RANGEL Primary Care Provider Assessment No assessment recorded. Plan of Treatment Reminders Order Date Submit Date Provider Last Modified By Organization Details Last Modified Time Details Appointments None recorded. Lab ova1, serum 2023 [facility] (Lab), [address], [place], [address], 13:07:31 Referral None recorded. Procedures None recorded. Surgeries None recorded. Imaging US, transvagina l 2023 [email or web address] [place], [address], [place], [address], 23:31:51 Medication Orders None recorded. Patient TargetsNo targets recorded. Patient InstructionsNo instructions recorded. Reason for Referral None Reported. Results Created Date Observation Date Name Description Value Unit Range Abnormal Flag Note LastModifiedBy Organization Detail LastModifiedTime 12/08/1912/08/2023 OVA 1 scan result See Bakari damon Result Not Available [facility] (Lab) [address], [place], [address], 12/11/2023 13:07:31 06/02/19 24 06/02/2023 US, trans vagin al No observ ation record ed. [email or web address] [place] [address], [place], [address], 06/02/2023 18:00:25 06/02/1906/02/2023 US, trans vagin al No observ ation record ed. [email or web address] [address], [place], [address], 06/02/2023 20:36:59 12/05/1912/05/2023 US, trans vagin al No observ [facility]ion [facility] [address], [place], [address], 12/05/2023 17:05:17 12/05/1912/05/2023 US, trans vagin al No observ ation record ed. [email or web address] [address], [place], [address], 12/08/2023 18:03:12 Result Notes None recorded. Problems Name Problem SNOMED Code Status Onset Date Resolution Date Notes Provider Name and Address Organization Details Recorded Time Postcoit al bleeding [id number] Completed 201408/24/2020 Postcoit al bleeding ;Recorde d Elsewher e: No Locat ion: [facility] S ource: EHR Accordion Tuner anastasia: N Heather ce ID: 0001 Emanuel lable Time: 04:00:00 PM [address] [facility] 12:14:16 Postmeno pausal bleeding [id number] Completed 201808/24/2020 Postmeno pausal bleeding ;Recorde d Elsewher e: No Locat ion: [facility] S ource: EHR [employer] Tuner anastasia: N Heather ce ID: 0001 Emanuel lable Time: 05:30:[address] [facility] 12:14:18 Dyspareu aura [id number] Completed 201408/24/2020 Dyspareu aura;Tamir rded Elsewher e: No Locat ion: Izabel felix [facility] S ource: EHR Accordion Tuner anastasia: N Practi ce ID: 0001 Emanuel lable Time: 03:30:00 PM Mónica [facility] 12:13:55 Glycosur ia [id number] Completed 201908/24/2020 Glycosur ia;Recor ded Elsewher e: No Locat ion: [facility] S ource: EHR [employer] Tuner anastasia: N Practi ce ID: 0001 Emanuel lable Time: 03:45:00 PM Mónica [facility] 12:13:58 Menopaus e present [id number] Completed 201708/24/2020 Menopaus e;Record ed Elsewher e: No Locat ion: [facility] elvira [facility] S ource: EHR Accordion Tuner anastasia: N Practi ce ID: 0001 Emanuel lable Time: 11:30:00 AM Mónica Martin [facility] 12:14:08 Screenin g for malignan t neoplasm of cervix Completed 201308/24/2020 Screenin g for malignan t neoplasm s of the cervix;R ecorded Elsewher e: No Locat ion: [facility] elvira [facility] S ource: EHR [employer] Tuner anastasia: Y Practi ce ID: 0001 Emanuel lable Time: 04:45:00 PM Mónica Martin [facility] 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 12:15:[address] Concept Completed 201908/24/2020 Encntr for general adult medical exam w/o abnormal findings ;Recorde d Elsewher e: No Locat ion: Rossy elvira [facility] S ource: EHR [employer] Tuner anastasia: N Rubioti ce ID: 0001 Emanuel lable Time: 03:45:00 PM Mónica ivey [facility] 1 12:15:14 Pre-surg shelley evaluati on Completed 201408/24/2020 Pre-oper ative examinat ion, unspecif ied;Tamir rded Elsewher e: No Locat ion: [facility] S ource: EHR [facility] anastasia: N Practi ce ID: 0001 Emanuel lable Time: 08:30:00 AM Mónica Martin [facility] 12:14:53 Screenin g for malignan t neoplasm of rectum Completed 201308/24/2020 Screenin g for malignan t neoplasm s of the rectum;R ecorded Elsewher e: No Locat ion: [facility] S ource: EHR [facility] anastasia: N Practi ce ID: 0001 Emanuel lable Time: 04:45:00 PM Mónica Martin [facility] 1 12:15:12 Vaginiti s and vulvovag initis Completed 201308/24/2020 Vaginiti s;Record ed Elsewher e: No Locat ion: [facility] S ource: EHR [employer] anastasia: N Practi ce ID: 0001 Emanuel lable Time: 01:30:00 PM Mónica ivey [facility] 1 12:16:09 Superfic ial pain on intercou rse [id number] Completed 201708/24/2020 Superfic ial (introit al) dyspareu aura;Tamir rded Elsewher e: No Locat ion: [facility] S ource: EHR [employer] anastasia: N Practi ce ID: 0001 Emanuel lable Time: 03:30:00 PM Mónica Veronica null, [facility] 1 12:15:46 Menopaus al symptom [id number] Completed 201308/24/2020 Menopaus al or female climacte riaz states;R ecorded Elsewher e: No Locat ion: [facility] S ource: EHR [employer] anastasia: N Rubioti ce ID: 0001 Emanuel lable Time: 09:15:00 AM Mónica ivey [facility] 1 12:14:10 Dysmenor aly [id number] Completed 201108/24/2020 Dysmenor aly;Rec orded Elsewher e: No Locat ion: [facility] S ource: EHR [employer] anastasia: N Rubioti ce ID: 0001 Emanuel lable Time: 01:30:00 PM Mónica Martin [facility] 12:13:52 Tobacco dependen ce syndrome [id number] Completed 201308/24/2020 Tobacco Abuse;Re corded Elsewher e: No Locat ion: [facility] S ource: EHR [employer] anastasia: Y Heather ce ID: 0001 Emanuel lable Time: 04:45:00 PM Mónica ivey [facility] 12:16:07 Lesion of ovary Completed 201808/24/2020 Other ovarian cyst, left side;Rec orded Elsewher e: No Locat ion: [facility] S ource: EHR [employer] anastasia: N Rubioti ce ID: 0001 Emanuel lable Time: 03:00:00 PM Mónica ivey [facility] 12:13:20 Depressi ve disorder [id number] Completed 201308/24/2020 Depressi on;Recor ded Elsewher e: No Locat ion: [facility] S ource: EHR [employer] anastasia: N Rubioti ce ID: 0001 Emanuel lable Time: 04:45:00 PM Mónica ivey [facility] 12:13:17 Speciali zed medical examinat ion Completed 201308/24/2020 Gynecolo gical Examinat ion;Tamir rded Elsewher e: No Locat ion: Izabel felix [facility] S ource: EHR [employer] anastasia: N Rubioti ce ID: 0001 Emanuel lable Time: 04:45:00 PM Mónica ivey [facility] 12:15:20 Postoper ative follow-u p visit Completed 201408/24/2020 Follow-u p examinat ion, followin g unspecif ied surgery; Recorded Elsewher e: No Locat ion: [place] elvira [facility] S ource: EHR [employer] Tun[employer] anastasia: N Rubioti ce ID: 0001 Emanuel lable Time: 10:15:00 AM Mónica ivey [facility] 12:14:50 Pregnanc y test negative [id number] Completed 201108/24/2020 Pregnanc y examinat ion or test, negative result;R ecorded Elsewher e: No [facility] Tun[facility] anastasia: N Rubioti ce ID: 0001 Emanuel lable Time: 01:30:00 PM Mónica ivey [facility] 12:14:56 Acute vaginiti s [id number] Completed 201608/24/2020 Vaginiti s;Record ed Elsewher e: No Locat ion: [facility] S ource: EHR [employer] Tun[employer] anastasia: N Rubioti ce ID: 0001 Emanuel lable Time: 03:30:00 PM Mónica ivey [facility] 12:13:08 Adult health examinat ion Completed 201308/24/2020 Routine Medical Exam;Rec orded Elsewher e: No Locat ion: [facility] S ource: EHR [employer] Tuner anastasia: N Practi ce ID: 0001 Emanuel lable Time: 04:45:00 PM Mónica ivey [facility] 1 12:13:11 Body mass index 25-29 - overweig [id number] Completed 201708/24/2020 Body mass index (BMI) 28.0-28. 9, adult;Re corded Elsewher e: No Locat ion: Izabel felix [facility] S ource: EHR Acc[employer]ion Tuner anastasia: N Practi ce ID: 0001 Emanuel lable Time: 04:00:00 PM Mónica Martin [facility] 12:13:13 Nipple bruised [id number] Completed 201808/24/2020 Contusio n of breast, unspecif ied breast, initial encounte r;Record ed Elsewher e: No Locat ion: Izabel felix [facility] S ource: EHR [employer] Tuner anastasia: N Practi ce ID: 0001 Emanuel lable Time: 03:00:00 PM Mónica Martin [facility] 12:14:13 Cyst of ovary Completed 201808/24/2020 Unspecif ied ovarian cyst, unspecif ied side;Rec orded Elsewher e: No [facility]: EHR Acc[employer] Tuner anastasia: N Practi ce ID: 0001 Emanuel lable Time: 05:30:00 PM Mónica ivey [facility] 12:13:15 Screenin g for malignan t neoplasm of colon Completed 201008/24/2020 Special screenin g for malignan t neoplasm s, colon;Pr actice ID: 0001 Mónica ivey [facility] 12:15:09 Increase d frequenc y of urinatio n [id number] Completed 201308/24/2020 Urinary frequenc y;Practi ce ID: 0001 Mónica Veronica [facility] 12:14:[address] Concept Completed 201708/24/2020 Encounte r for general adult medical exam w abnormal findings ;Practic e ID: 0001 [facility] 12:15:04 Irregula r intermen strual bleeding [id number] Completed 201408/24/2020 Metrorrh agia;Pra ctice ID: 0001 Mónica Martin [facility] 12:14:04 Hyperten sive disorder 12957280 Active 2023 Izabel Bashir [facility] 4 16:54:57 Hypercho lesterol emia 79923344 Active 2023 Izabel Bashir [facility] 4 16:55:19 Herpes simplex 70245428 Active 2023 Izabel Bashir [facility] 4 16:55:28 Diabetes mellitus 87206785 Active 2023 Izabel Bashir [facility] 4 19:51:19 Problem Notes None recorded. Procedures Surgical History Date Name Laterality Status Provider Name and Address Organization Details Recorded Time 02/17/20 24 SALPINGO-OOPHORECT MALACHI, LAPAROSCOPIC (SURG) completed Eloisa Suazo [facility] 02/17/2024 10:18:54 03/11/19 24 Date of Last Pap Smear completed Izabel Bashir [facility] 06/05/2023 16:55:49 11/02/19 23 Date of Last Mammogram completed Carmela Swanson [facility] 03/11/2023 17:05:32 03/03/19 22 [facility] 19:45:59 03/03/19 20 procedure on shoulder completed Izabel Bashir [facility] 12/08/2023 17:15:44 03/03/19 18 [facility] 12/08/2023 17:18:50 03/03/19 17 Carpal tunnel [facility] 12/08/2023 17:18:47 05/22/19 16 completed [facility] 09/07/2020 14:16:05 05/22/19 16 Date of Last Colonoscopy completed [facility] 09/07/2020 14:16:05 05/22/19 16 Colonoscopy completed [facility] 06/06/2023 19:48:30 08/25/19 15 Colposcopy completed [facility] 06/06/2023 19:38:22 08/15/19 15 Colposcopy completed [facility] 06/06/2023 19:47:49 03/03/19 15 [facility]/06/2023 19:44:55 03/03/19 10 Neck spine disk surgery [facility] 06/06/2023 19:49:25 03/03/19 05 total knee replacement completed Flaquita Patel [facility] 09/14/2019 15:58:36 03/03/19 04 total knee replacement completed [facility] 12/08/2023 17:16:32 03/03/19 03 Knee arthroscopy/surger y completed [facility] 12/08/2023 17:16:19 03/03/19 00 reconstruction of anterior cruciate ligament of knee joint completed [facility] 06/06/2023 19:43:49 03/03/19 00 Knee arthroscopy/surger y completed [facility] 12/08/2023 17:16:15 10/09/18 94 section completed [facility] 12/08/2023 17:18:12 03/03/18 94 Tubal Ligation completed [facility] 06/06/2023 19:48:16 12/05/18 90 section completed [facility] 12/08/2023 17:18:06 03/03/18 85 Oophorectomy completed [facility] 06/06/2023 19:43:14 03/03/18 84 Dilation and Curettage completed [facility] 09/14/2019 15:55:30 03/03/18 84 removal of ovarian cyst completed [facility] 09/14/2019 15:55:50 03/03/18 83 repair of ovary completed [facility] 09/14/2019 15:56:11 03/03/18 83 Laparoscopy completed [facility] 09/14/2019 15:56:29 03/03/18 83 Laparoscopy completed [facility] 12/08/2023 17:15:27 03/03/18 82 Dilation and Curettage completed [facility] 12/08/2023 17:14:47 03/03/18 81 Laparoscopy completed [facility] 12/08/2023 17:15:10 03/03/18 80 appendectomy completed [facility] 06/06/2023 19:47:17 03/03/18 80 Dilation and Curettage completed [facility] 12/08/2023 17:14:37 03/03/18 78 graft of skin to skin completed [facility] 06/06/2023 19:46:55 03/03/18 78 graft of skin to skin completed [facility] 12/08/2023 17:14:27 Hysteroscopy completed [facility] 12/08/2023 17:09:31 Imaging Results Imaging Date Name Status LastModified by Organization Details LastModified Time 06/02/2023 US, transvaginal completed [email or web address] felix [address], [place], [address], 06/02/2023 18:00:25 06/02/2023 US, transvaginal completed [email or web address] [address], [place], [address], 06/02/2023 20:36:59 12/05/2023 US, transvaginal completed [email or web address] Izabel felix [address], [place], [address], 12/05/2023 17:05:17 12/05/2023 US, transvaginal completed [email or web address] [address], [place], [address], 12/08/2023 18:03:12 Procedure Notes None recorded. Medical Equipment None Reported. Allergies Allergen ID Allergen Name Allergen Category Reaction Reaction Severity Criticality Documentation Date Start Date Code Code System Note Provider Name and Address Organization Details Recorded Time 1323 amoxicill in medicatio n Not available Not available Not available 09/14/2019 723 RxNorm Flaquita Patel [facility], [facility] 0 15:53:50 1324 erythromy linn medicatio n Not available Not available Not available 09/14/2019 4053 RxNorm Flaquita Patel [facility] 0 15:54:02 1325 morphine medicatio n Not available Not available Not available 09/14/2019 7052 RxNorm Flaquita Patel [facility], [facility] 0 15:54:10 1326 potassium medicatio n Not available Not available Not available 09/14/2019 8588 RxNorm Izabel Bashir [facility], [facility] 4 17:09:40 89183 Augmentin medicatio n Not available Not available Not available 02/13/2023 98267 2 RxNorm Mónica Martin [facility], [facility] 3 12:12:04 Medications Name Sig Start Date Stop Date Status Note LastModified by Organization Details LastModified Time fluconazo le 100 mg tablet 06/04 completed Not Available Not Available Not Available methocarb celso 500 mg tablet 02/10 completed Not Available Not Available Not Available metformin 500 mg tablet take 1 tablet (500MG) by oral route 2 times every day with morning and evening meals 06/04 completed Not Available Not Available Not Available prednison e 10 mg tablet 03/11 completed Not Available Not Available Not Available doxycycli ne hyclate 100 mg capsule 02/13 completed Not Available Not Available Not Available trazodone 50 mg tablet active Not Available Not Available Not Available atorvasta tin 10 mg tablet 2023 active Not Available Not Available Not Avai lable azithromy linn 250 mg tablet 02/13 completed Not Available Not Available Not Available CombiPatc h 0.05 mg-0.14 mg/24 hr transderm al apply 1 patch by transder mal route 2 times every week 04/29 completed Prescrib ed Elsewher e: No Locat ion: Izabel felix [facility] odify By: marybel floresunter DateTime : 03/05/19 19 12:23:54 PM Not Available Not Available Not Available fluconazo le 150 mg tablet take 1 tablet by oral route once 06/04 completed Not Available Not Available Not Available metoprolo l succinate ER 50 mg tablet,ex tended release 24 hr take 1 tablet by oral route every day 04/09 completed Prescrib ed Elsewher e: Yes Loca tion: Izabel [facility] odify By: [email or web address] Encount er DateTime : 05/03/19 12 03:30:00 PM Not Available Not Available Not Available clobetaso l 0.05 % topical cream 02/10 completed Not Available Not Available Not Available Wellbutri n SR 150 mg tablet, 12 hr sustained -release TAKE 1 TABLET BY ORAL ROUTE EVERY DAY 03/25 completed Prescrib ed Elsewher e: No Locat ion: Izabel [facility] odify By: cathy floresunter DateTime : 10/13/19 14 01:38:04 PM Not Available Not Available Not Available Rachael Low Dose Aspirin 81 mg tablet,de layed release take 1 tablet (81MG) by oral route every day 02/13 completed Prescrib ed Elsewher e: No Locat ion: Izabel [facility] odify By: cathy floresunter DateTime : 02/06/20 12 01:30:00 PM Not Available Not Available Not Available omeprazol e 40 mg capsule,d elayed release active Not Available Not Available Not Available acetamino phen 500 mg tablet 03/11 completed Not Available Not Available Not Available meloxicam 7.5 mg tablet 12/07 completed Not Available Not Available Not Available amoxicill in 875 mg tablet 02/13 completed Not Available Not Available Not Available Metrogel Vaginal 0.75 % (37.5 mg/5 gram) insert 1 applicat orful by vaginal route every day at bedtime 08/16 completed Prescrib ed Elsewher e: No Locat ion: [place] [facility] odify By: amkaleb Felix ncounter DateTime : 01/20/20 14 01:30:00 PM Not Available Not Available Not Available Flagyl 500 mg tablet take 1 tablet by oral route every 12 hours 02/13 completed Prescrib ed Elsewher e: No Locat ion: Izabel felix [facility] odify By: amkaleb floresuntshannon DateTime : 10/15/19 17 03:37:04 PM Not Available Not Available Not Available benzonata te 100 mg capsule 02/13 completed Not Available Not Available Not Available cephalexi n 500 mg capsule 06/04 completed Not Available Not Available Not Available metformin 1,000 mg tablet active Not Available Not Available Not Available Neurontin 100 mg capsule take 2 capsule by oral route 3 times every day 08/08 completed Prescrib ed Elsewher e: No [facility] By: amkaleb floresuntshannon DateTime : 09/21/19 14 09:15:00 AM Not Available Not Available Not Available lisinopri l 10 mg tablet 2023 active Not Available Not Available Not Avai lable CombiPatc h 0.05 mg-0.25 mg/24 hr transderm al apply 1 patch by transder mal route 2 times every week 04/29 completed Prescrib ed Elsewher e: No [facility] By: marybel floresuntshannon DateTime : 04/09/19 19 04:00:00 PM Not Available Not Available Not Available folic acid 1 mg tablet 02/13 completed Not Available Not Available Not Available lisinopri l 5 mg tablet take 1 tablet by oral route every day 09/07 completed Not Available Not Available Not Available clobetaso l 0.05 % topical ointment 02/10 completed Not Available Not Available Not Available scopolami ne 1 mg over 3 days transderm al patch 03/11 completed Not Available Not Available Not Available albuterol sulfate HFA 90 mcg/actua tion aerosol inhaler active Not Available Not Available Not Available Terazol 7 0.4 % vaginal cream insert 1 applicat orful by vaginal route every day for 7 days at bedtime 07/06 completed Prescrib ed Elsewher e: No Locat ion: Izabel felix [facility] odify By: christie Encount er DateTime : 07/01/19 12 03:42:28 PM Not Available Not Available Not Available clobetaso l 0.05 % scalp solution 02/10 completed Not Available Not Available Not Available ondansetr on 4 mg disintegr ating tablet 02/13 completed Not Available Not Available Not Available betametha sone dipropion ate 0.05 % lotion 02/13 completed Not Available Not Available Not Available oxycodone 5 mg tablet 02/13 completed Not Available Not Available Not Available Premarin 0.625 mg/gram vaginal cream apply 0.5 gram by vaginal route 2 times every week at bedtime 03/30 completed Prescrib ed Elsewher e: No Locat ion: Rossy elvira [facility] odify By: alberto ruiz DateTime : 12/08/19 16 11:47:54 AM Not Available Not Available Not Available Wellbutri n XL 150 mg 24 hr tablet, extended release take 1 tablet by oral route every day 04/29 completed Prescrib ed Elsewher e: Yes Loca tion: Izabel felix [facility] odify By: marybel casas DateTime : 02/28/20 18 03:30:00 PM Not Available Not Available Not Available nitrofura ntoin monohydra te/macroc rystals 100 mg capsule 02/13 completed Not Available Not Available Not Available Lantus U-100 Insulin 100 unit/mL subcutane ous cartridge inject by subcutan eous route as per insulin protocol 09/07 completed Prescrib ed Elsewher e: Yes [facility] By: helena ruiz DateTime : 02/06/20 12 01:30:00 PM Not Available Not Available Not Available acyclovir active Not Available Not Kylie ilable Not Available biotin active Not Available Not Availa ble Not Available ibuprofen 06/04 completed Not Available Not Available Not Available lisinopri l 09/07 completed Not Available Not Available Not Available metformin 09/07 completed Not Available Not Available Not Available Asprin Ec Low Dose active Not Available Not Available Not Available BD Ultra-Fin e Short Pen Needle 31 gauge x /16 02/10 completed Not Available Not Available Not Available estradiol -norethin drone acet 0.5 mg-0.1 mg tablet take 1 tablet by oral route every day 04/09 completed Prescrib ed Natasha e: No Locat ion: Izabel felix [facility] odify By: [email or web address] Encount er DateTime : 11/15/19 11:30:00 AM Not Available Not Available Not Available Lantus Solostar U-100 Insulin 100 unit/mL (3 mL) subcutane ous pen 03/11 completed Not Available Not Available Not Available Lantus Solostar U-100 Insulin 09/07 completed Not Available Not Available Not Available cholecalc iferol (vit D3)(bulk) active Not Available Not Available No t Available Invokana 100 mg tablet take 1 tablet by oral route every day before the first meal of the day 03/11 completed Not Available Not Available Not Available Invokana 09/07 completed Not Available Not Available Not Available Jardiance 25 mg tablet 2023 active Not Available Not Available Not Avai lable Toujeo SoloStar U-300 Insulin 300 unit/mL (1.5 mL) subcutane ous pen active Not Available Not Available Not Available FreeStyle Hien 2 Sensor kit 02/10 completed Not Available Not Available Not Available FreeStyle Hien 2 [place] 02/13 completed Not Available Not Available Not Available Vitals Date Recorded Body height Body mass index (BMI) Body weight Systolic blood pressure Diastolic blood pressure Provider Name and Address Organization Details Last Updated DateTime 06/05/2023 159.39 cm 26.1 kg/m2 46464.49 g 150 mm[Hg] 78 mm[Hg] Izabel [facility] 16:53:38 Date Recorded Body height Body mass index (BMI) Body weight Systolic blood pressure Diastolic blood pressure Provider Name and Address Organization Details Last Updated DateTime 12/08/2023 159.39 cm 25.4 kg/m2 00991.12 g 150 mm[Hg] 69 mm[Hg] Izabel Bashir [facility] 4 17:09:16 Date Recorded Body height Body mass index (BMI) Body weight Systolic blood pressure Diastolic blood pressure Provider Name and Address Organization Details Last Updated DateTime 02/11/2024 159.39 cm 25.7 kg/m2 34916.3 g 154 mm[Hg] 77 mm[Hg] Carmela [facility] 4 16:48:31 Date Recorded Body height Body mass index (BMI) Body weight Systolic blood pressure Diastolic blood pressure Provider Name and Address Organization Details Last Updated DateTime 02/26/2024 159.39 cm 25.7 kg/m2 32206.3 g 132 mm[Hg] 78 mm[Hg] Carmela [facility] 4 09:43:06 Social History Question Answer Notes LastModified by Organizat ion Details LastModified Time Tobacco Smoking Status Current Every Day Smoker [facility] 03/11/2023 16:40:13 Do You Have An Advance Directive? No Information not available 08/24/2020 What Is Your Level Of Alcohol Consumption? Occasional Information not available 09/15/2019 How Many Years Have You Consumed Alcohol? 35 Information not available 09/07/2020 Are You Blind Or Do You Have Difficulty Seeing? No Information not available 08/24/2020 What Is Your Level Of Caffeine Consumption? Moderate Information not available 08/24/2020 How Much Tobacco Do You Chew? None Information not available 08/24/2020 In The 14 Days Before Symptom Onset, Have You Had Close Contact With A Laboratory-confir med COVID-19 While That Case Was Ill? No Information not available 08/24/2020 In The 14 Days Before Symptom Onset, Have You Had Close Contact With A Person Who Is Under Investigation For COVID-19 While That Person Was Ill? No Information not available 08/24/2020 Have You Been To An Area Known To Be High Risk For COVID-19? No Information not available 08/24/2020 Are You Deaf Or Do You Have Serious Difficulty Hearing? No Information not available 08/24/2020 What Type Of Diet Are You Following? REGULAR Information not available 08/24/2020 What Is The Highest Grade Or Level Of School You Have Completed Or The Highest Degree You Have Received? 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 Yes Information not available 08/24/2020 Have You Ever Been Counseled For Unhealthy Alcohol Use? No [email or web address] Information not available 06/05/2023 Do You Use Protection During Sex? No Information not available 08/24/2020 Do You Use Your Seat Belt Or Car Seat Routinely? Yes Information not available 08/24/2020 Do You Have Smoke And Carbon Monoxide Detectors In Your Home? Yes Information not available 08/24/2020 At What Age Did You Start Smoking Tobacco? 23 Information not available 08/24/2020 How Much Tobacco Do You Smoke? 0.5 PPD Information not available 08/24/2020 Do You Feel Stressed (tense, Restless, Nervous, Or Anxious, Or Unable To Sleep At Night)? [id number] Information not available 08/24/2020 Do You Use Any Illicit Or Recreational Drugs? No Information not available 08/24/2020 Do You Use Sunscreen Routinely? No Information not available 08/24/2020 Has Tobacco Cessation Counseling Been Provided? No [email or web address] Information not available 06/05/2023 How Many Years Have You Smoked Tobacco? 35 Information not available 09/07/2020 Have You Used IV Drugs? No Information not available 08/24/2020 Do You Or Have You Ever Used Any Other Forms Of Tobacco Or Nicotine? No [email or web address] Information not available 06/05/2023 Sex: Unknown Functional Status Question Answer Note LastModified by Organizat ion Details LastModified Time Do you have difficulty walking or climbing stairs? No [email or web address] Information not available 06/05/2023 Are you able to walk? YESWOREST [email or web address] Information not available 08/24/2020 Are you able to care for yourself? Yes [email or web address] Information not available 06/05/2023 Do you have difficulty dressing or bathing? No [email or web address] Information not available 06/05/2023 What is your exercise level? Occasional Information not available 09/15/2019 Mental Status None recorded. Family History Relationship Description Onset Age of this Age Resolved Age Notes LastModified by Organization Details LastModified Time Mother Diabetes mellitus [email or web address] Not available 2019 15:49:47 Mother Malignant tumor of cervix [email or web address] Not available 2019 15:50:05 Medical History Condition Response Allergies (Food, seasonal, environmental ) Y Other N Breast Cancer N Drug/Latex Allergies/Reactions Y Blood Transfusion N Dermatologic Disorders Y Lung Disease N Defects or Inherited Disease N Breast Problem N Gestational Diabetes N Hematologic disorders N Anesthesia Complications N History of STI Y Deep Vein Thrombosis N Polycystic ovary syndrome N Anxiety Disorder Y Autoimmune disease N Arthritis N Infertility N Polyps N Acid Reflux (GERD) Y History of abnormal pap N Cancer N Stroke N Varicosities N Neurologic/Epilepsy Y Endometriosis N High Cholesterol Y Headaches N Fibromyalgia N Kidney Disease N Heart Problems N Kidney or Bladder Problems N Thyroid Problems N GI Problems N Eating Disorder N Anemia N Art (IVF or FET) N Psychiatric Illness N Ovarian Cancer N Diabetes Y Pulmonary (TB, Asthma) N Hepatitis/Liver Disease N No Past Medical History N Eczema N Urinary Tract Infection N Abuse/Domestic Violence N Asthma Y Trauma/Violence N Depression/ depression Y Heart Disease N Pre-Eclampsia N Hypertension Y Osteoporosis N Thrombophilias N Gynecological History Statement/Question Response Date of Last Mammogram 11/01/2022 Date of LMP 08/01/2012 N Was last menstrual period normal N STIs/STDs Y If Post Menopausal, Age at Menopause 52 Date of control 10/09/1993 Date of Last Colonoscopy 05/22/2015 Sterilization Desired Control Method Sterilizati on Abnormal Pap N On BCP's at Conception? N Colposcopy 08/24/2014 HPV Vaccine N Duration of Flow (days) 6 Current Control Method Tubal Ligat ion Age at First Child 29 Frequency of Cycle (Q days) 21 Sexually Active? Y Menses Monthly N Date of DEXA bone scan Age of first menstrual cycle 17 Date of Last Pap Smear 03/11/2023 Sexual Problems? N LMP Approximate 05/22/2015 N Obstetrics History GPAL:G 3 P 2 0 1 2 Type Value Full Term 2 Spontaneous 1 Living 2 Total 3 Past Encounters Encounter ID Performer Location Encounter Start Date Encounter Closed Date Diagnosis/Indication Diagnosis SNOMED-CT Code Diagnosis ICD10 Code Diagnosis Note [id number] Thania Maxwell [place] [address] [address] 09/15/2019 09:56:56 09/15/2019 10:35:44 Mastodynia of left breast [id number] 7175207 N64.4 Tenderness in left breast. History of benign lump (per patient). Diagnostic mammogram with ultrasound if needed. [id number] Michael Mcdonald MD [place] [address] [address] 08/24/2020 11:59:46 08/25/2020 09:51:56 Lesion of vulva 017588702 N90.89 This patient is a 60-year-ol d female with some perineal lesions. The been present for 2-3 months. They are times painful. There is accumulati on of fluid and other material within the lesion. There sometimes infected. They have been drained manually by the patient. She was examined. There is a scarred nodular area on the left medial, inferior buttock near the perineum. It appears to be scarred and repetitive ly infected. There is a nodule within the skin. The area should be resected for resolution . We discussed that agreed to do that at the for an appointmen [place] [id number] [facility] [address] [address] 09/07/2020 14:03:15 09/07/2020 14:52:01 Gynecologic examination [id number] Z01.419 Take Calcium with Vitamin D 12-1500mg daily. Do monthly self breast exams. It is advised to get annual flu shot in the fall and she could obtain at [facility] or [facility] care clinic. If you haven't received the Tdap vaccine in the last 10 years you should obtain one as well. Have mammogram yearly, bone density every 2-3 years and colonoscop y every 5-10 years depending on findings and history. Engage in daily exercise of low impact aerobic exercise 45-60 minutes 4-5 times weekly. Avoid tobacco and illicit drugs as well as using moderation with alcohol intake less than 1-2 8 oz beverages daily. This lifestyle behavior pattern will lead to less health conditions and longer life span. If BMI greater than 25 weight watchers or dietary consult advised. Questions have been answered. Patient appears to understand instructio ns, but if you have any further questions call or respond to this email Pap/hpv hx wnlPap/hpv 09/2019 wnlPap/hpv q3-5yrs per asccp unless otherwise indicated. Colon-UTDD exa 0rderedmam mo ordered Screening mammography 24 050152 Z12.31 Postmenopa usal osteopenia [id number] M85.80 Vaginitis 92552090 N76.0 Has DM.On insulinNot es she will get yeast infection at least every other month.1 diflucan usually clears it up.Difluca n with a few RF sent Has f/u Dr. Mcdonald for left buttocks abscess/cy stic lesion coming up.This area is doing well & now non-inflam ed and non-tender but still advise f/u. [id number] Michael Mcdonald MD [place] [address] [address] 02/13/2023 11:51:41 02/13/2023 14:48:49 Pain in pelvis 26963470 R10.2 62-year-ol d female with pelvic pain. She is history of ovarian cysts. She has sharp left-sided pelvic pain. It is intermitte nt. To obtain ultrasound . She is a normal exam. she will follow-up after ultrasound to discuss a treatment plan. [id number] Karon Aguilar [place] [address] [address] 02/18/2023 16:15:42 02/18/2023 17:11:48 Pain in pelvis 59083678 R10.2 62-year-ol d female with pelvic pain. She is history of ovarian cysts. She has sharp left-sided pelvic pain. It is intermitte nt. To obtain ultrasound . She is a normal exam. she will follow-up after ultrasound to discuss a treatment plan. [id number] Michael Mcdonald MD [place] [address] [address] 02/25/2023 15:54:24 02/25/2023 17:09:49 Pain in pelvis 43143933 R10.2 Mass of ovary 198614800 R19.09 this patient is a 62-year-ol d female presents for follow-up on ultrasound . She is some left-sided pelvic pain but it is better at this time. She is not interested in pursuing the pain to vigorously . She has a hypo echoic area on the left ovary suspicious for a dermoid tumor. It is questionab le whether this is a dermoid. We will observe this. She will repeat ultrasound in 3 months. She will see me afterwards . We spent 15 minutes face-to-fa ce. More than 50% was counseling . [id number] [facility] [address] [address] 03/11/2023 16:40:03 03/11/2023 18:49:38 Gynecologic examination 52280403 Z01.419 Take Calcium with Vitamin D 12-1500mg daily. Do monthly self breast exams. It is advised to get annual flu shot in the fall and she could obtain at [facility] or [facility] care clinic. If you haven't received the Tdap vaccine in the last 10 years you should obtain one as well. Have mammogram yearly, bone density every 2-3 years and colonoscop y every 5-10 years depending on findings and history. Engage in daily exercise of low impact aerobic exercise 45-60 minutes 4-5 times weekly. Avoid tobacco and illicit drugs as well as using moderation with alcohol intake less than 1-2 8 oz beverages daily. This lifestyle behavior pattern will lead to less health conditions and longer life span. If BMI greater than 25 weight watchers or dietary consult advised. Questions have been answered. Patient appears to understand instructio ns, but if you have any further questions call or respond to this email Pap/hpv sentSTD Screen declinedGe netic Screen discussedC olon Screen PCPDexa Screen PCPRoutine Labs PCP NOTE: recommend evaluation with PT for muscular issues lower back/left hip. Can call if need referral for this service. Vaginitis 46216554 N76.0 Diflucan sent PRN use for yeast [id number] Karon Aguilar [place] [address] [address] 06/02/2023 16:21:43 06/02/2023 17:06:36 Ultrasound scan abnormal [id number] R93.89 [id number] Michael Mcdonald MD [place] [address],[facility] [place] [address] 06/05/2023 16:20:05 06/05/2023 17:37:06 Mass of ovary 454079424 R19.09 63-year-ol d female who presents for follow-up on ovarian lesion. Left ovary was thought to have a dermoid. Looks less conspicuou s today. Smaller lesion. Less luminous. Agreed to follow-up again in 6 months with ultrasound . She has no pain. [id number] Pilar Hare [place] [address] [address] 12/05/2023 16:20:12 12/08/2023 08:59:28 Ultrasound scan abnormal 431466747 R93.89 [id number] Michael Mcdonald MD [place] [address],[place] [address] 12/08/2023 16:39:48 12/11/2023 10:31:16 Mass of ovary 476658873 R19.09 63-year-ol d female who presents for follow-up on ovarian lesion. Reviewed the results again today. Essentiall y stable. Mild-to-mo derately worrisome. Discussed removal. Possible dermoid. Agreed to tumor marker study. She will obtain tumor marker study. We will have follow-up ultrasound in a couple of months. We will consider removal of the ovary again. Believe it should be removed. I expressed that to her. I spent over 20 minutes on her care in total. [id number] Michael Mcdonald MD [place] [address],[place] [address] 02/11/2024 16:13:15 02/11/2024 17:27:31 Cyst of ovary 49899584 N83.209 63-year-ol d female with left ovarian cyst. We agreed to perform left salpingo-o ophorectom y. She understand s the risks, benefits, and alternativ es. She has completed the informed consent process and is ready to proceed. [id number] Michael Mcdonald MD [place] [address] [address] 02/26/2024 09:29:33 02/26/2024 10:23:41 Postoperative care 608452354 Z48.89 This patient is a 63-year-ol d female who presents for postop follow-up. She is 1 week postop from a laparoscop ic right salpingo-o ophorectom y. Her incisions are clean dry and intact. She has no complaints . She is recovering normally. She will follow up as needed. Health Concerns Section Related Observation LastModified by Organization Detai ls LastModified Time None Recorded Concern Status LastModified by Organization Details LastModified Time None Recorded Advance Directives Directive N: Payers Encounter Date Sequence Insurance Name Policy Number Policy Oliver Covered Member ID Oliver Member ID Guarantor Name 06/05/2023 1 [facility] [id number] Tabby L Thomson [id number] Tabby L Build Master 12/05/2023 1 [facility] [id number] Tabby L Thomson [id number] Tabby L Thomson 12/08/2023 1 [facility] [id number] Tabby L Thomson [id number] Tabby L Thomson 02/11/2024 1 [facility] [id number] Tabby L Thomson [id number] Tabby L Build Master 02/26/2024 1 [facility] [id number] Tabby L Thomson [id number] Tabby L Thomson Notes Date Note Type Note Provider Name and Address Organization Details Recorded Time 06/05/2023 text/html 63-year-old joanna tomas who presents for follow-up on ovarian lesion. Left ovary was thought to have a dermoid. Looks less conspicuous today. Smaller lesion. Less luminous. Agreed to follow-up again in 6 months with ultrasound. She has no pain. Michael Mcdonald MD [address], [place], [address], [facility] 06/05/2023 17:36:37 12/08/2023 text/html 63-year-old femtanna tomas who presents for follow-up on ovarian lesion. Reviewed the results again today. Essentially stable. Sugf-zq-hwfjwgmdkz worrisome. Discussed removal. Possible dermoid. Agreed to tumor marker study. She will obtain tumor marker study. We will have follow-up ultrasound in a couple of months. We will consider removal of the ovary again. Believe it should be removed. I expressed that to her. I spent over 20 minutes on her care in total. Michael Mcdonald MD [address], [place], [address], [facility] 12/10/2023 17:31:36 02/11/2024 text/html 63-year-old femtanna tomas with a persistent, mildly complex ovarian cyst. We have agreed to perform laparoscopic left oophorectomy. The patient understands the procedure. The procedure was described to the patient in great detail. the patient also understands the risks. The risks were also explained in detail. She understands that injuries May occur during surgery. She understands these injuries can result in hospitalization, more surgery, and severe illness. She understands there is risk of hemorrhage and infection. Michael Mcdonald MD [address], [place], [address], [facility] 02/11/2024 17:25:22 02/26/2024 text/html This patient is a 63-year-old female who presents for postop follow-up. She is 1 week postop from a laparoscopic right salpingo-oophorect malachi. Her incisions are clean dry and intact. She has no complaints. She is recovering normally. She will follow up as needed. Michael Mcdonald MD [address], [place], [address], [facility] 02/26/2024 10:23:14 OBGyn Episode Ob Episode Information Episode Created Date Number of Fetuses Patient Bloodtype Patient rh Status Prepregnancy Weight lbs Domestic Partner Domestic Partner Phone Father Name Prototype Carpenter Status 09/15/19 1 CLOSED Fetus Data First Name Last Name Admitted to NICU Weight (g) Sex Living Outcome Pediatric Complications Fetus ID Race Codes Race Delivery Type , Spontane ous [id number] Woodrow Calculation Initial Woodrow Date Initial Exam Date Initial Exam Provider Initial Ultrasound Date Last Menstrual Period Date Ultra Sound Weeks Gestation 0 Eighteen To Twenty Week Woodrow Update Ultra Sound Date Fundal Height At Umbil Quickening Date Ultra Sound Latest Weeks Gestation Final Woodrow Confirmed By Final Woodrow Confirmed Date Final Woodrow Date Ultra Sound Latest Days Gestation 0 0 Menstrual History Last Menstrual Date Menses Monthly On Bcp Conception Prior Menses Frequency Hcg Plus Date Menarche Onset Age Delivery Information Delivery Date Delivery Type Labor Anesthesia Weeks Gestation Incision Type Labor Labor Length Hrs Delivered By Post Complications Tubal Sterilization Discharge Date Comments 3 Discharge Information Feeding Method Contraceptive Method Maternal HG B and HCT Levels Ob Episode Information Episode Created Date Number of Fetuses Patient Bloodtype Patient rh Status Prepregnancy Weight lbs Domestic Partner Domestic Partner Phone Father Name Prototype Carpenter Status 09/15/19 1 CLOSED Fetus Data First Name Last Name Admitted to NICU Weight (g) Sex Living Outcome Pediatric Complications Fetus ID Race Codes Race Delivery Type 3316.66 [id number] F Full Term 2903 Repeat Woodrow Calculation Initial Woodrow Date Initial Exam Date Initial Exam Provider Initial Ultrasound Date Last Menstrual Period Date Ultra Sound Weeks Gestation 0 Eighteen To Twenty Week Woodrow Update Ultra Sound Date Fundal Height At Umbil Quickening Date Ultra Sound Latest Weeks Gestation Final Woodrow Confirmed By Final Woodrow Confirmed Date Final Woodrow Date Ultra Sound Latest Days Gestation 0 0 Menstrual History Last Menstrual Date Menses Monthly On Bcp Conception Prior Menses Frequency Hcg Plus Date Menarche Onset Age Delivery Information Delivery Date Delivery Type Labor Anesthesia Weeks Gestation Incision Type Labor Labor Length Hrs Delivered By Post Complications Tubal Sterilization Discharge Date Comments 4 40 reina Discharge Information Feeding Method Contraceptive Method Maternal HG B and HCT Levels Ob Episode Information Episode Created Date Number of Fetuses Patient Bloodtype Patient rh Status Prepregnancy Weight lbs Domestic Partner Domestic Partner Phone Father Name Prototype Carpenter Status 09/15/19 1 CLOSED Fetus Data First Name Last Name Admitted to NICU Weight (g) Sex Living Outcome Pediatric Complications Fetus ID Race Codes Race Delivery Type 3089.86 [id number] F Full Term 2902 Primary Woodrow Calculation Initial Woodrow Date Initial Exam Date Initial Exam Provider Initial Ultrasound Date Last Menstrual Period Date Ultra Sound Weeks Gestation 0 Eighteen To Twenty Week Woodrow Update Ultra Sound Date Fundal Height At Umbil Quickening Date Ultra Sound Latest Weeks Gestation Final Woodrow Confirmed By Final Woodrow Confirmed Date Final Woodrow Date Ultra Sound Latest Days Gestation 0 0 Menstrual History Last Menstrual Date Menses Monthly On Bcp Conception Prior Menses Frequency Hcg Plus Date Menarche Onset Age Delivery Information Delivery Date Delivery Type Labor Anesthesia Weeks Gestation Incision Type Labor Labor Length Hrs Delivered By Post Complications Tubal Sterilization Discharge Date Comments 0 40 rufus Discharge Information Feeding Method Contraceptive Method Maternal HG B and HCT Levels
--- OUTSIDE RECORDS SUMMARY | 2024-03-29 16:30 | XMS_ITS | Encounter Summary ---
Author Organization [facility] Address [address] [place] [address] Care Team Providers Care Scientific Research Associate Name Role Phone Unavailable Primary Care Provider Unavailabl e Encounter Details Date Type Department Care Team (Late st Contact Info) Description 02/05/2019 Lab Requisition [facility] [address] [facility] [place] [id number] Sesar Ramos [place] [address] Social History Tobacco Use Types Packs/Day Years Used Date Smoking Tobacco: Every Day Cigarettes 0.8 30 Smokeless Tobacco: Never Alcohol Use Standard Drinks/Week Comments Yes 5 (1 standard drink = 0.6 oz pur e alcohol) Sex and Gender Information Value Date Recorded Sex Assigned at Not on file Gender Identity Not on file Sexual Orientation Not on file documented as of this encounter Plan of Treatment Not on file documented as of this encounter Procedures Procedure Name Priority Date/Time Associated Diagnosis Comments DERMATOPATHOLOGY Routine 02/03/2019 12:0 0 AM NURSE PRACTICAL documented in this encounter Results * DERMATOPATHOLOGY (02/03/2019 12:00 AM NURSE PRACTICAL) Case Report Dermatopathology Report ? Case: [id number] ? Authorizing Provider: ??Sesar Ramos MD ?Collected: ? 02/03/2019 12:00 AM ? Ordering Location: ? [facility] DermPath Lab ?Received: ?02/05/2019 10:34 AM ? Pathologist: ? Shey Gray MD ? Specimen: ?Skin, above left mid brow ? 1:23 PM [facility] DERMATOPATHOLOGY LABORATORY Final Diagnosis Specimen A. SKIN, above left mid brow: PROMINENT BASILAR PIGMENTATION CONSISTENT WITH SOLAR LENTIGO (L81.4) 1:23 PM [facility] DERMATOPATH[facility]AT[facility] Clinical History R/O lentigo vs dysplastic nevus. 1:23 PM [facility]MAT[facility] Gross Description Specimen A: Received is one formalin filled container labeled with the patient's name and designated above left mid brow. The specimen consists of a shave biopsy measuring 5t6j5nl. Jar 0. 1:23 PM [facility] DERMATOPATH[facility]Y [facility] Microscopic Description Specimen A. SKIN, above left mid brow: Sections show prominent pigmentation of the basal layer without a prominent increase in melanocytes. Some of the basilar keratinocytes are slightly enlarged but uniform. The rete ridges are not elongated. 1:23 PM [facility] DERMATOPATH[facility]Y [facility]ORAT[facility] Disclaimer An external and internal positive and negative controls are appropriate for the histochemical, immunohistochemical and immunofluorescence stain(s) in this case (if any), except where stated explicitly. The performance characteristics of the stain(s) cited in this report were developed and its performance characteristic determined by the Dermatopathology Laboratory at [facility], directed by Dr. Ayah Chavarria. These tests need not be, and therefore are not, approved by the [place] Food and Drug Administration. The tests are used for clinical purposes. Billing Codes Specimen Charges Stain Charges 51898 1 9 1:23 PM NURSE PRACTICAL DERMATOPATHOLOGY LABORATORY Embedded Images 9 1:23 PM NURSE PRACTICAL DERMATOPATHOLOGY LABORATORY Pathology/Cytolog y TISSUE SPECIMEN FROM SKIN / Unknown 02/03/2019 02/05/2019 10:34 AM NURSE PRACTICAL Sesar Ramos MD LAB - PATHOLOGY/CYTO LOGY ORDERABLES DERMATOPATHOLOGY LABORATORY [facility] - Department of Dermatology [address] [place] [address], [address] [place] [address], [facility] [phone] documented in this encounter Visit Diagnoses Not on filedocumented in this encounter
--- OUTSIDE RECORDS SUMMARY | 2024-03-29 16:30 | XMS_ITS | Patient Health Summary ---
Author Organization [facility] Address [address] [facility] [place] [address] Care Team Providers Care Health Science Instructor Name Role Phone Unavailable Primary Care Provider Unavailabl e Note from [facility],non-owned Affiliates and Associated Physician Practices is amultiple site organization consisting of ambulatory clinics and hospital sitesin [place], [place], [place] and [place]. This disclosure is being madepursuant to the Care Everywhere program and may not contain all information available regarding this patient. Last updated 17.[facility] Allergies * Augmentin * Erythromycin(Sensitivity /gi upset) Medications * Be aware that medications may not be up to date on this document. Alwaysverify current medications with the patient. * metFORMIN (GLUCOPHAGE) 500 MG tablet Take 2 Tabs by mouth once daily. * metoprolol tartrate IR (LOPRESSOR) 50 MG tablet Take 1 Tab by mouth once daily. * insulin glargine (LANTUS) injection 200 Units at bedtime. * aspirin 81 MG tablet Take 1 Tab by mouth once daily. Immunizations * INFLUENZA VACCINE, QUADR. (FLUZONE; FLULAVAL; FLUARIX; AFLURIA QUADRIVALENT; 6MO+), 0.5 ML (IIV4)(Given 11/25/2019, 01/03/2018) Social History Tobacco Use Types Packs/Day Years [...] Mass Index 30.18 06/29/2013 12:43 PM CDT Procedures * DERMATOPATHOLOGY(Performed 12/01/2019) * DERMATOPATHOLOGY(Performed 02/03/2019) * PAIN MANAGEMENT PROCEDURE TIME(Performed 06/29/2013) Performed for Sacroiliitis, Not Elsewhere Classified (Hcc) Results * DERMATOPATHOLOGY (12/01/2019 12:00 AM CDT) Only the most recent of2 resultswithin the time period is included. Case Report Dermatopathology Report ? Case: [id number] ? Authorizing Provider: ??Sesar Ramos MD ?Collected: ? 12/01/2019 12:00 AM ? Ordering Location: ? [facility] DermPath Lab ?Received: ?12/02/2019 11:38 AM ? Pathologist: ? Heidi Chavarria MD ? Specimens: ?? A) - Skin, left upper back ? B) - Skin, right little toe ? 0 2:57 PM T DERMATOPATHOLOGY LABORATORY Amended Report General clerical error 0 2:57 PM [facility] DERMATOPATHOLOGY LABORATORY Final Diagnosis Specimen A. SKIN, left upper back: SEBORRHEIC KERATOSIS, MACULAR (L82.1) TATTOO (L81.8) Specimen B. SKIN, right little toe: VERRUCA VULGARIS WITH ASSOCIATED CHANGES OF PRURIGO NODULARIS, SUPERFICIAL PORTIONS (B07.8) 0 2:57 PM [facility] DERMATOPATHOLOGY LABORATORY Amendment electronically signed by Heidi Chavarria MD on 12/07/2019 at 2:57 PM Clinical History A: R/O ISK, SCC in a tattoo on back. B: R/O BCC. 0 2:57 PM [facility] DERMATOPATHOLOGY LABORATORY Gross Description Specimen A: Received is one formalin filled container labeled with the patient's name and designated left upper back. The specimen consists of a shave biopsy measuring [id number]. Jar 0. Specimen B: Received is one formalin filled container labeled with the patient's name and designated right little toe. The specimen consists of a shave biopsy measuring 8d3z7yh. Jar 0. 0 2:57 PM [facility] DERMATOPATHOLOGY LABORATORY Microscopic Description Specimen A. SKIN, [...] superficial perivascular lymphohistiocytic infiltrate. 0 2:57 PM CDT DERMATOPATHOLOGY LABORATORY Disclaimer An external and internal positive and negative controls are appropriate for the histochemical, immunohistochemical and immunofluorescence stain(s) in this case (if any), except where stated explicitly. The performance characteristics of the stain(s) cited in this report were developed and its performance characteristic determined by the Dermatopathology Laboratory at [facility], directed by Dr. Ayah Chavarria. These tests need not be, and therefore are not, approved by the [place] Food and Drug Administration. The tests are used for clinical purposes. Billing Codes Specimen Charges Stain Charges 35952 84372 1 1 0 2:57 PM CDT DERMATOPATHOLOGY LABORATORY Embedded Images 0 2:57 PM CDT DERMATOPATHOLOGY LABORATORY Pathology/Cytology TISSUE SPECIMEN FROM SKIN / Unknown 12/01/2019 12/02/2019 11:38 AM CDT Miscellaneous samples (specimen) TISSUE SPECIMEN FROM SKIN / Unknown 12/01/2019 12/02/2019 11:38 AM CDT Sesar Ramos MD LAB - PATHOLOGY/CYTO LOGY ORDERABLES DERMATOPATHOLOGY LABORATORY [facility] Department of Dermatology [address], [address] [phone] * PAIN MANAGEMENT PROCEDURE TIME (06/29/2013 1:08 PM CDT) Anatomical Region Laterality Modality X-Ray Angiograph y Narrative 07/22/2013 7:27 PM CDT RT Brenda(R) ? 06/29/2013 ??1:15 PM Fluoroscopically Guided Bilateral Sacroiliac Joint Injections The patient was identified in the holding area and the operative permit was explained and signed. I have discussed with the patient the risks, benefits, side effects and complications of a fluoroscopically guided sacroiliac joint injection. I have answered the patient's questions regarding the procedure and have given the patient the opportunity to refuse the procedure. I also have discussed alternative methods of treatment. The patient stated understanding of the procedure and wished to proceed with a fluoroscopically guided sacroiliac joint injection. The patient was taken to the fluoroscopic suite and placed on a C-arm table in the prone position and appropriate monitoring placed. A nurse was in attendance for the duration of the procedure to carefully monitor the patient. Please refer to the nursing record for vital sign documentation and for any doses of sedatives and medications. I was present and gave the order for any medications given to the patient. This procedure was performed on the bilateral sacroiliac joints. The skin was prepped in the usual sterile fashion and then a sterile drape was applied to the lumbosacral region of the back overlying the sacroiliac joint. Using fluoroscopic guidance, the sacroiliac joint was visualized in the AP oblique direction. A 22 gauge, 3.5-inch needle was placed in the inferior aspect of the sacroiliac joint. Next 1 cc of Omnipaque (240 mg/cc) was injected and intra-articular spread was confirmed under direct fluoroscopy. There was no evidence of intravascular or epidural spread. A preservative free mixture of 3 cc of 0.25% Bupivacaine and 40 mg of DepoMedrol 40 mg/cc was injected into the left sacroiliac joint. The needle was removed intact. Attention was then turned to the contralateral side where the procedure was repeated in an identical fashion. The patient tolerated the procedure well and there were no complications. The patient was taken to the recovery area. The patient remained in stable condition with no apparent complications. Post procedure instructions were given to the patient and a follow up appointment was confirmed. The patient was also discharged with information on how to reach the clinic or manager aviation physician at anytime for questions or complaints. Procedure Note Audrey Kwon, RT(R) - 06/29/2013 1:14 PM CDT Fluoroscopically Guided Bilateral Sacroiliac Joint Injections The patient was identified in the holding area and the operative permitwas explained and signed. I have discussed with the patient the risks,benefits, side effects and complications of a fluoroscopically guidedsacroiliac joint injection. I have answered the patient's questionsregarding the procedure and have given the patient the opportunity torefuse the procedure. I also have discussed alternative methods oftreatment. The patient stated understanding of the procedure and wished toproceed with a fluoroscopically guided sacroiliac joint injection. Thepatient was taken to the fluoroscopic suite and placed on a C-arm table inthe prone position and appropriate monitoring placed. A nurse was inattendance for the duration of the procedure to carefully monitor thepatient. Please refer to the nursing record for vital sign documentationand for any doses of sedatives and medications. I was present and gave theorder for any medications given to the patient. This procedure wasperformed on the bilateral sacroiliac joints. The skin was prepped in theusual sterile fashion and then a sterile drape was applied to thelumbosacral region of the back overlying the sacroiliac joint. Usingfluoroscopic guidance, the sacroiliac joint was visualized in the APoblique direction. A 22 gauge, 3.5-inch needle was placed in the inferioraspect of the sacroiliac joint. Next 1 cc of Omnipaque (240 mg/cc) wasinjected and intra-articular spread was confirmed under directfluoroscopy. There was no evidence of intravascular or epidural spread. Apreservative free mixture of 3 cc of 0.25% Bupivacaine and 40 mg ofDepoMedrol 40 mg/cc was injected into the left sacroiliac joint. Theneedle was removed intact. Attention was then turned to the contralateralside where the procedure was repeated in an identical fashion. The patienttolerated the procedure well and there were no complications. The patientwas taken to the recovery area. The patient remained in stable conditionwith no apparent complications. Post procedure instructions were given tothe patient and a follow up appointment was confirmed. The patient wasalso discharged with information on how to reach the clinic or manager aviation physician at anytime for questions or complaints. Shaun Tyler ORDERABLES
--- OUTSIDE RECORDS SUMMARY | 2024-03-29 16:30 | XMS_ITS | Referral Summary ---
Author Organization [facility] Address [address] [place] [address] Care Team Providers Care Hand Lens Polisher Name Role Phone Unavailable Primary Care Provider Unavailabl e Source Comments [facility]non-owned Affiliates and Associated Physician Practices is amultiple site organization consisting of ambulatory clinics and hospital sitesin [place], [place], [place] and [place]. This disclosure is being madepursuant to the Care Everywhere program and may not contain all information available regarding this patient. Last updated 17.[facility] Allergies Active Allergy Reactions Criticality Noted Date [...] 06/29/2013 12:43 PM CDT Plan of Treatment Not on file
--- OUTSIDE RECORDS SUMMARY | 2024-03-29 16:30 | XMS_ITS | Continuity of Care Document ---
Author Organization [facility] Address [address] [place] [address] Phone Care Team Providers Care Traffic Maintenance Supervisor Name Role Phone Unavailable Unavailable Unavailable Advance Directives Directive Yes / No Effective Date File Name No Information Encounters Encounter Description Practice Location Reason(s) For Visit Diagnoses Date Provider Providers Copied on Encounter [email or web address], [address], [place], [place], [id number] , [place] tel:[phone] [facility] CERVICAL DISC DISPLACMNTLUMBAR DISC DISPLACEMENT 200 7 No Information Family History Family Member Type Diagnosis Age At Onset No Information Payers Payer name Insurance type Covered green party ID Authoriza tion(s) No Information Social History Type Description Quantity Date Captured Comments Sex Female Smoking Status No Information Chief Complaint And Reason For Visit No Information Reason For Referral Reason For Referral No Information History Of Present Illness Encounter Date Complaint History Of Prese nt Illness No Information Functional Status Date Functional Assessmen t No Information Instructions Date Instruction Additional Infor mation No Information Assessments Type Assessment Date No Information Patient Care Teams Name Effective Dates (start - stop) Status Members No Information
--- OUTSIDE RECORDS SUMMARY | 2024-03-29 16:30 | XMS_ITS | Encounter Summary ---
Author Organization [facility] Address [address] [place] [address] Care Team Providers Care Press Tender Star Signal Name Role Phone Unavailable Primary Care Provider Unavailabl e Encounter Details Date Type Department Care Team (Late st Contact Info) Description 03/08/2021 Telephone [facility] 1 DAY ONCOLOGY [address] [place] [address] Claudia Wilson, FINANCE EFFECTIVENESS MANAGER-SERVICE PERSON [address] [place] [address] Social History Tobacco Use Types Packs/Day Years Used Date Smoking Tobacco: Every Day Cigarettes 0.8 30 Smokeless Tobacco: Never Alcohol Use Standard Drinks/Week Comments Yes 5 (1 standard drink = 0.6 oz pur e alcohol) Sex and Gender Information Value Date Recorded Sex Assigned at Not on file Gender Identity Not on file Sexual Orientation Not on file documented as of this encounter Miscellaneous Notes * Telephone Encounter - Erma Winters - 03/08/2021 10:48 AM CST Tabby Girard is a 60 year old female requesting information on Monoclonal Antibody Therapy for COVID-19. Patient verified the following information: Date of COVID-19 symptom onset: 03/03/2021 Date of positive COVID-19 test: 03/05/2021 Test Location: [facility] Type of COVID-19 test: rapid test COVID-19 Vaccination Status: N/A PCP:Dr. Nazario Call back number:[phone] Best time to call: Anytime Patient was informed they will be contacted by a [facility] nurse to review inclusion criteria for monoclonal antibody therapy and to discuss scheduling for an infusion within the next 24 hours. CASE MANAGER documented in this encounter Plan of Treatment Not on file documented as of this encounter Visit Diagnoses Not on filedocumented in this encounter
== END 2024-03-29 15:44 | disposition home or self-care (01) ==
PROVIDERS: PCP Family Medicine; Visit Provider Nurse Practitioner
DX: Z12.2 Encounter for screening for malignant neoplasm of respiratory organs (principal); Z87.891 Personal history of nicotine dependence
CPT/HCPCS: 71271

== ENCOUNTER 2024-05-06 19:29 | Emergency (ER) | payer OTHER, SELFPAY ==
--- NOTE | ~2024-05-06 | XR_ITS ---
XR chest 2V Ordering provider: Joshua Kebede MD History: 63 years Female with . palpations . Comparison: April 11, 2014 FINDINGS: MEDIASTINUM: The cardiac silhouette is not enlarged. LUNGS: No infiltrates, effusions or pneumothorax. OTHER: No free air under the diaphragm. Postoperative changes in the cervical area and the right shou lder. IMPRESSION: No acute cardiopulmonary pathology. Reviewed, dictated and finalized at location A. ETING PLANNER
--- OUTSIDE RECORDS SUMMARY | 2024-05-06 19:31 | XMS_ITS | Encounter Summary ---
Author Organization [facility] Address [address] [place] [address] Care Team Providers Care Parking Line Painter Name Role Phone Unavailable Primary Care Provider Unavailabl e Encounter Details Date Type Department Care Team (Late st Contact Info) Description 12/02/2019 Lab Requisition [facility] [address] [facility] [place] [address] [place] [address] Social History Tobacco Use Types [...] 12:00 AM CDT) Case Report Dermatopathology Report Case: [id number] Authorizing Provider: Sesar Ramos MD Collected: 12/01/2019 12:00 AM Ordering Location: [facility] Received: 12/02/2019 11:38 AM Pathologist: Heidi Chavarria MD Specimens: A) - Skin, left upper back B) - Skin, right little toe 0 2:57 PM T DERMATOPATHOLOGY LABORATORY Amended Report General clerical error 0 2:57 PM T DERMATOPATHOLOGY LABORATORY Final Diagnosis Specimen A. SKIN, left upper back: SEBORRHEIC KERATOSIS, MACULAR (L82.1) TATTOO (L81.8) Specimen B. SKIN, right little toe: VERRUCA VULGARIS WITH ASSOCIATED CHANGES OF PRURIGO NODULARIS, SUPERFICIAL PORTIONS (B07.8) 0 2:57 PM T DERMATOPATHOLOGY LABORATORY Amendment electronically signed by Heidi Chavarria MD on 12/07/2019 at 2:57 PM Clinical History A: R/O ISK, SCC in a tattoo on back. B: R/O BCC. 0 2:57 PM T DERMATOPATHOLOGY LABORATORY Gross Description Specimen A: Received is one formalin filled container labeled with the patient's name and designated left upper back. The specimen consists of a shave biopsy measuring 1e8w6pa. Jar 0. Specimen B: Received is one formalin filled container labeled with the patient's name and designated right little toe. The specimen consists of a shave biopsy measuring 7q8h2oh. Jar 0. 0 2:57 PM [facility] DERMATOPATHOLOGY LABORATORY Microscopic Description Specimen A. [...] superficial perivascular lymphohistiocytic infiltrate. 0 2:57 PM [facility] DERMATOPATHOLOGY LABORATORY Disclaimer An external and internal positive and negative controls are appropriate for the histochemical, immunohistochemical and immunofluorescence stain(s) in this case (if any), except where stated explicitly. The performance characteristics of the stain(s) cited in this report were developed and its performance characteristic determined by the Dermatopathology Laboratory at [facility], directed by Dr. Ayah Chavarria. These tests need not be, and therefore are not, approved by the [place] Food and Drug Administration. The tests are used for clinical purposes. Billing Codes Specimen Charges Stain Charges 71214 09080 1 1 0 2:57 PM CDT DERMATOPATHOLOGY LABORATORY Embedded Images 0 2:57 PM CDT DERMATOPATHOLOGY LABORATORY Pathology/Cytology TISSUE SPECIMEN FROM SKIN / Unknown 12/01/2019 12/02/2019 11:38 AM CDT Miscellaneous samples (specimen) TISSUE SPECIMEN FROM SKIN / Unknown 12/01/2019 12/02/2019 11:38 AM CDT Sesar Ramos MD LAB - PATHOLOGY/CYTO LOGY ORDERABLES DERMATOPATHOLOGY LABORATORY [facility] - Department of Dermatology [address] [phone] documented in this encounter Visit Diagnoses Not on filedocumented in this encounter
--- OUTSIDE RECORDS SUMMARY | 2024-05-06 19:31 | XMS_ITS | Patient Health Summary ---
Author Organization [facility] Address [address] [place] [address] Care Team Providers Care Landscape Crew Member Name Role Phone Unavailable Primary Care Provider Unavailabl e Note from [facility] [employer] [facility],non-owned Affiliates and Associated Physician Practices is amultiple site organization consisting of ambulatory clinics and hospital sitesin [place], [place], [place] and [place]. This disclosure is being madepursuant to the Care Everywhere program and may not contain all information available regarding this patient. Last updated 17.[facility] [employer] Allergies * Augmentin * Erythromycin(Sensitivity /gi upset) [...] 76 06/29/2013 12:43 PM CDT Temperature 36.8 C (98.2 F) 06/29/2013 12:43 PM CDT Respiratory Rate 16 06/29/2013 12:43 PM CDT [...] period is included. Case Report Dermatopathology Report Case: [id number] Authorizing Provider: Sesar Ramos MD Collected: 12/01/2019 12:00 AM Ordering Location: [facility] DermPath Lab Received: 12/02/2019 11:38 AM Pathologist: Heidi Chavarria MD Specimens: A) - Skin, left upper back B) - Skin, right little toe 0 2:57 PM CDT DERMATOPATHOLOGY LABORATORY Amended [...] back. B: R/O BCC. 0 2:57 PM CDT DERMATOPATHOLOGY LABORATORY Gross Description Specimen A: Received is one formalin filled container labeled with the patient's name and designated left upper back. The specimen consists of a shave biopsy measuring 5d1x6ug. Jar 0. Specimen B: Received is one formalin filled container labeled with the patient's name and designated right little toe. The specimen consists of a shave biopsy measuring 9q7t8lb. Jar 0. 0 2:57 PM T DERMATOPATHOLOGY LABORATORY Microscopic Description Specimen A. SKIN, [...] characteristic determined by the Dermatopathology Laboratory at [facility], directed by Dr. Ayah Chavarria. These tests need not be, and therefore are not, approved by the [place] Food and Drug Administration. The tests are used for clinical purposes. Billing Codes Specimen Charges Stain Charges 52485 64827 1 1 0 2:57 PM CDT DERMATOPATHOLOGY LABORATORY Embedded Images 0 2:57 PM CDT DERMATOPATHOLOGY LABORATORY Pathology/Cytology TISSUE SPECIMEN FROM SKIN / Unknown 12/01/2019 12/02/2019 11:38 AM CDT Miscellaneous samples (specimen) TISSUE SPECIMEN FROM SKIN / Unknown 12/01/2019 12/02/2019 11:38 AM CDT Sesar Ramos MD LAB - PATHOLOGY/CYTO LOGY ORDERABLES DERMATOPATHOLOGY LABORATORY [facility] - Department of Dermatology [address], [address] Floor [address] [phone] * PAIN MANAGEMENT PROCEDURE TIME (06/29/2013 1:08 PM CDT) Anatomical Region Laterality Modality X-Ray Angiograph y Narrative 07/22/2013 7:27 PM CDT Audrey Kwon, RT(R) 06/29/2013 1:15 PM Fluoroscopically Guided Bilateral Sacroiliac Joint Injections [...] on how to reach the clinic or tongue and groove machine operator physician at anytime for questions or complaints. [...] on how to reach the clinic or tongue and groove machine operator physician at anytime for questions or complaints. Shaun Billings MD DIAGNOSTIC JESSICAIN G ORDERABLES
--- OUTSIDE RECORDS SUMMARY | 2024-05-06 19:31 | XMS_ITS | Encounter Summary ---
Author Organization [facility] Healthcare Address [address] [place] [address] Care Team Providers Care Rn Plastic Surgery Name Role Phone Conrad Rodriguez MD Primary Care Provider Encounter Details Date Type Department Care Team ([facility] Contact Info) Description 04/29/2024 Telephone [facility] Medical [facility] Cardiology [address] [place] [address] Pasha Marmolejo MD [address] [place] [id number] Social History Tobacco Use Types Packs/Day Years Used Date Smoking Tobacco: Every Day Cigarettes 0.5 37.2 Started: 1987 Smokeless Tobacco: Never Alcohol Use [...] on file Legal Sex Female 1:04 AM CHANNELING MACHINE RUNNER Gender Identity Not on file Sexual Orientation Not on file documented as of this encounter Miscellaneous Notes * Telephone Encounter - Shauna Lester MA - 04/29/2024 4:30 PM CST Patient notified to D/C monitor and send it back to [facility]. Patient voiced understanding. NELING MACHINE RUNNER * Telephone Encounter - Flaquita Leggett MA - 04/29/2024 3:[address] Marmolejo, Can pt stop wearing monitor? Please advise. NELING MACHINE RUNNER * Telephone Encounter - Shante Zhu - 04/29/2024 3:22 PM CST Pt states the sensitive adhesive patches are still irritating her skin. States there is probably only 2 weeks worth of data. She has taken the monitor off and wants to know what she should do. Pleaseadvise, thank you. Contact: NELING MACHINE RUNNER documented in this encounter Plan of Treatment Not on file documented as of this encounter Visit Diagnoses Not on filedocumented in this encounter Care Teams Rn Plastic Surgery Relationship Specialty Start Date End Date Conrad Rodriguez MD PCP - General Family Practice 03/28/21 documented as of this encounter
--- OUTSIDE RECORDS SUMMARY | 2024-05-06 19:31 | XMS_ITS | Encounter Summary ---
Author Organization [facility] Address [address] [place] [address] Care Team Providers Care Small Business Consultant Name Role Phone Unavailable Primary Care Provider Unavailabl e Encounter Details Date Type Department Care Team (Late st Contact Info) Description 03/08/2021 Telephone [facility] 1 DAY ONCOLOGY [address] [place] [address] Claudia Wilson, CEMENT CAR DUMPER-HOUSE MANAGER [address] [place] [address] Social History Tobacco Use Types [...] of positive COVID-19 test: 03/05/2021 Test Location: [facility] [place] Type of COVID-19 test: rapid test COVID-19 Vaccination Status: N/A PCP:Dr. Nazario Call back number:[phone] Best time to call: Anytime Patient was informed they will be contacted by a [facility] nurse to review inclusion criteria for monoclonal antibody therapy and to discuss scheduling for an infusion within the next 24 hours. ECTOR MATERIAL DISPOSITION documented in this encounter Plan of Treatment Not on file documented as of this encounter Visit Diagnoses Not on filedocumented in this encounter
--- OUTSIDE RECORDS SUMMARY | 2024-05-06 19:31 | XMS_ITS | Encounter Summary ---
Author Organization [facility] Address [address] [place] [address] Care Team Providers Care Water Quality Control Engineer Name Role Phone Unavailable Primary Care Provider Unavailabl e Encounter Details Date Type Department Care Team (Late st Contact Info) Description 02/05/2019 Lab Requisition [facility] DermPath Lab [address] [place] [address] Se[place] [address] Social History Tobacco Use Types [...] Comments DERMATOPATHOLOGY Routine 02/03/2019 12:0 0 AM QUALITY ASSURANCE TESTER documented in this encounter Results * DERMATOPATHOLOGY (02/03/2019 12:00 AM QUALITY ASSURANCE TESTER) Case Report Dermatopathology Report Case: [id number] Authorizing Provider: Sesar Ramos MD Collected: 02/03/2019 12:00 AM Ordering Location: [facility] DermPath Lab Received: 02/05/2019 10:34 AM Pathologist: Shey Gray MD Specimen: Skin, above left mid brow 9 1:23 PM QUALITY ASSURANCE TESTER DERMATOPATHOLOGY LABORATORY Final Diagnosis Specimen A. SKIN, above left mid brow: PROMINENT BASILAR PIGMENTATION CONSISTENT WITH SOLAR LENTIGO (L81.4) 1:23 PM [facility] DERMATOPATHOLOGY LABORATORY Clinical History R/O lentigo vs dysplastic nevus. 1:23 PM [facility] DERMATOPATHOLOGY LABORATORY Gross Description Specimen A: Received is one formalin filled container labeled with the patient's name and designated above left mid brow. The specimen consists of a shave biopsy measuring 1o3h7xb. Jar 0. 1:23 PM [facility] DERMATOPATHOLOGY LABORATORY Microscopic Description Specimen A. SKIN, above left mid brow: Sections show prominent pigmentation of the basal layer without a prominent increase in melanocytes. Some of the basilar keratinocytes are slightly enlarged but uniform. The rete ridges are not elongated. 1:23 PM [facility] DERMATOPATHOLOGY LABORATORY Disclaimer An external and internal positive and negative controls are appropriate for the histochemical, immunohistochemical and immunofluorescence stain(s) in this case (if any), except where stated explicitly. The performance characteristics of the stain(s) cited in this report were developed and its performance characteristic determined by the Dermatopathology Laboratory at [facility], directed by Dr. Ayah Chavarria. These tests need not be, and therefore are not, approved by the [place] Food and Drug Administration. The tests are used for clinical purposes. Billing Codes Specimen Charges Stain Charges 99145 1 1:23 PM [facility] DERMATOPATHOLOGY LABORATORY Embedded Images 1:23 PM [facility] DERMATOPATHOLOGY LABORATORY Pathology/Cytolog y TISSUE SPECIMEN FROM SKIN / Unknown 02/03/2019 02/05/2019 10:34 AM QUALITY ASSURANCE TESTER Sesar Ramos MD LAB - PATHOLOGY/CYTO LOGY ORDERABLES DERMATOPATHOLOGY LABORATORY [facility] - Department of Dermatology [address] [place] [address], [address]th [place] [address], [facility] [phone] documented in this encounter Visit Diagnoses Not on filedocumented in this encounter
--- OUTSIDE RECORDS SUMMARY | 2024-05-06 19:31 | XMS_ITS | Referral Summary ---
Author Organization [facility] Register My Info Address [address] [place] [address] Care Team Providers Care Revenue Stamp Cutter Name Role Phone Unavailable Primary Care Provider Unavailabl e Source Comments [facility] Register My Info,non-owned Affiliates and Associated Physician Practices is amultiple site organization consisting of ambulatory clinics and hospital sitesin [place], [place], [place] and [place]. This disclosure is being madepursuant to the Care Everywhere program and may not contain all information available regarding this patient. Last updated 17.[facility] Register My Info Allergies Active Allergy Reactions Criticality Noted Date [...]
--- OUTSIDE RECORDS SUMMARY | 2024-05-06 19:31 | XMS_ITS | Clinical Summary ---
Author Organization [facility] Address [address] [place] [address] Care Team Providers Care Casino Floor Runner Name Role Phone Unavailable Primary Care Provider Unavailabl e Source Comments [facility],non-owned Affiliates and Associated Physician Practices is amultiple site organization consisting of ambulatory clinics and hospital sitesin [place], [place], [place] and [place]. This disclosure is being madepursuant to the Care Everywhere program and may not contain all information available regarding this patient. Last updated 17.[facility] Allergies Active Allergy Reactions Criticality Noted Date [...] (1 of 2) 2012 COVID-19 VACCINE ( season) 2023 INFLUENZA VACCINE (#1) 2023 0, [...]
--- NOTE | 2024-05-06 19:32 | ECG_ITS ---
Test Date: 2024-05-06 19:40:11 Measurements Intervals [place] Rate: 96 P: 56 AK: 165 QRS: 65 QRSD: 69 T: 64 QT: 318 QTc: 403 Interpretive Statements SINUS RHYTHM LOW QRS VOLTAGE IN PRECORDIAL LEADS [QRS DEFLECTION < 1.0 mV IN CHEST LEADS] Compared to ECG 02/10/2024 15:50:58 NO SIGNIFICANT CHANGES Electronically Signed On 05-07-2024 16:24:39 EARTH BURNER by Pasha Marmolejo M.D.
--- OUTSIDE RECORDS SUMMARY | 2024-05-06 19:33 | XMS_ITS | Clinical Summary ---
Author Organization [facility] Address [address] [address] Care Team Providers Care Order Desk Caller Name Role Phone Conrad Rodriguez MD Primary [...] (10,000 mcg total) by mouth nightly Active ibuprofen (ADVIL,MOTRIN) 400 mg tablet Take [...] (81 mg total) by mouth nightly Active traZODone (DESYREL) 50 mg tabletIndications: insomnia associated with depression Take 1 tablet (50 mg total) by mouth nightly 03/07/19 21 Active atorvastatin (LIPITOR) 10 mg tabletIndications: [...] Units under the skin nightly Toujeo Active ZINC ORALIndications:he alth Take 50 mg by mouth actuary manager before breakfast Active clobetasol (TEMOVATE) 0.05 % cream Apply 1 application topically 2 (two) times a day as needed (psoriasis) 01/12/20 19 025 Discontin ued(Patie nt Reported) acyclovir (ZOVIRAZ) 5 % creamIndications:R ecurrent Herpes Simplex Labialis Apply 1 application (deactivated) topically 3 (three) times a day as needed (blisters) 03/16/19 20 025 Discontin ued(Patie nt Reported) omeprazole (PriLOSEC) 40 mg capsuleIndications :Treatment of Non-Bleeding Gastric Disorder Take 1 capsule (40 mg total) by mouth daily as needed 12/30/19 20 025 Discontin ued(Patie nt Reported) methocarbamoL (ROBAXIN) 500 mg tablet Take 1 tablet (500 mg total) by mouth nightly as needed for muscle spasms 20 tablet 07/04/19 21 025 Discontin ued(Patie nt Reported) flash glucose scanning reader (FreeStyle Hien 14 Day [place]) misc every 14 (fourteen) days 025 Discontin ued(Patie nt Reported) oxyCODONE (ROXICODONE) 5 mg immediate release tabletIndications: Pain Take 1-2 tablets (5-10 mg total) by mouth every 4 (four) hours as needed for pain 40 tablet 08/20/19 23 025 Discontin ued(Patie nt Reported) ondansetron ODT (ZOFRAN-ODT) 4 mg disintegrating tabletIndications: Prevention of Post-Operative Nausea and Vomiting Take 1 tablet (4 mg total) by mouth every 8 (eight) hours as needed for nausea or vomiting 20 tablet 08/20/19 23 025 Discontin ued(Patie nt Reported) acetaminophen (TYLENOL) 500 mg tabletIndications: Pain Take 2 tablets (1,000 mg total) by mouth every 6 (six) hours 60 tablet 1 08/20/19 23 025 Discontin ued(Patie nt Reported) Active Problems Problem Noted Date Diagnosed Date Palpitations 04/08/2024 Tear of rotator cuff 07/31/2022 Cubital tunnel syndrome on 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 Overview (07/11/2021): Added automatically from request for surgery [id number] Guyon syndrome, 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 Overview (07/11/2021): Added automatically from request for surgery [id number] Essential hypertension 09/26/2020 Hyperlipidemia 09/26/2020 KEVIN on CPAP 09/26/2020 Type 2 diabetes mellitus 09/26/2020 Biceps tendinitis of right upper extremity 09/18 Overview (09/18/2020): Added automatically from request for surgery [id number] Glycosuria 04/29/2019 Lateral epicondylitis of left elbow 08/19/2018 Overview (08/19/2018): Added automatically from request for surgery [id number] Cyst of ovary 05/14/2018 Smoker 11/14/2017 Menopause [...] for malignant neoplasm o f colon 06/27/2010 Encounters Date Type Department Care Team Description 04/29/2024 Telephone [facility] Cardiology [address] [facility] [address] [place] [address] [phone] Pasha Marmolejo MD 04/23/2024 Telephone [facility] Cardiology [address] [place] [address] [address] [place] [address] [phone] Flaquita Leggett MA Rash due to panel monitor 04/08/2024 3:15 PM ICE DELIVERY DRIVER Office Visit [facility] Cardiology [address] [place] [address] [place] [address] [phone] Pasha Marmolejo MD Palpitations (Primary Dx); Essential hypertension; Mixed hyperlipidemia 04/08/2024 2:30 PM ICE DELIVERY DRIVER Ancillary Procedure [facility] Cardiology [address] [place] [address] [place] [address] [phone] Palpitations 04/08/2024 Orders Only [address] [place] [address] [phone] Provider, MD Ponce from Last 3 Months Immunizations Immunization Administration Dates Next Due Influenza, Quadrivalent, Spl [...] on file Legal Sex Female 1:04 AM ICE DELIVERY DRIVER Gender Identity Not on file Sexual Orientation Not on file Obstetrics History Para Term AB IAB SAB Ectopic Multiple Livin g Live Births 3 2 Date Outcome GA Total Labor Labor/2nd/3rd Weight Sex Type Anes PTL Caron A1 A5 Name Clin Para Para Last Filed Vital Signs Vital Sign Reading Time Taken Comments Blood Pressure 142/64 04/08/2024 3:23 PM ICE DELIVERY DRIVER Pulse 84 04/08/2024 3:23 PM ICE DELIVERY DRIVER Temperature 36.7 C (98.1 F) 08/19/2022 3:16 PM CDT Respiratory Rate 18 08/19/2022 3:50 PM CDT Oxygen Saturation 96% 04/08/2024 3:23 PM ICE DELIVERY DRIVER Inhaled Oxygen Concentration - - Weight 66.2 kg (146 lb) 04/08/2024 3:23 PM ICE DELIVERY DRIVER Height 158.8 cm (5' 2.5 ) 04/08/2024 3:23 PM ICE DELIVERY DRIVER Body Mass Index 26.28 04/08/2024 3:23 PM ICE DELIVERY DRIVER Plan of Treatment Health Maintenance Due Date Last Done Comments Albumin Creatinine Ratio, Urine 1960 Breast Cancer Screening-Mammogram 1960 Cervical Cancer Screening 1960 Colon Cancer Screening-Colonoscopy 1960 Depression Screening 1960 Hemoglobin A1C 1962 Hepatitis C Screening 1960 eGFR 1960 Dilated Eye Exam 1962 Foot Exam 1962 DTaP/Tdap/Td Vaccine (1 - Tdap) 1973 Hepatitis B Screening 1980 Regular Well Visit/Exam 18-64 1980 Pneumococcal vaccine <65 (1 of 2 - PCV) 1981 Zoster Vaccine (2 of 2) 08/01/2020 06/06/2020 Influenza Vaccine (#1) 2023 , 01/03/2018, 02/03/2017, Additional history exists Lipid Panel 04/03/2025 04/03/2024 Medical Devices Implanted Type Area Nursing Clerk Device Identifier Shelf Expiration Date Model / Serial / Lot Free Stle Hien N/A: Arm Description:Free style hien [employer] Ar-3670 Set Implant [employer] Fibertak Biceps Sterile Latex Free - [id number] Implanted:Qty: 1 on 09/28/2020 by Enoc Cullen MD at [facility] [place] Right: Shoulder [employer] 07/31/2025 AR-3670 / / [id number] [employer] Ar-2324 Bcm Swivelock 4.75mm 24.5mm Self Punch Vent Shoulder [place] Suture - [id number] Implanted:Qty: 1 on 09/28/2020 by Enoc Cullen MD at [facility] [place] Right: Shoulder [employer] 05/31/2024 AR-2324BC M / / [id number] [employer] Swivelock C 4.75mm 19.1mm Closed Eyelet Vent [place] Suture Ar-2324bcc - [id number] Implanted:Qty: 1 on 08/19/2022 by Levar Morris MD at [facility] Right: Shoulder [employer] [id number] 05/31/2026 AR-2324BC C / / [id number] [employer] Swivelock C 4.75mm 19.1mm Closed Eyelet Vent [place] Suture Ar-2324bcc - [id number] Implanted:Qty: 1 on 08/19/2022 by Levar Morris MD at [facility] Right: Shoulder [employer] [id number] 05/31/2026 AR-2324BC C / / [id number] [employer] Arthrex Fibertak Tape 3 Load Rotator Cuff [place] Suture Sterile Latex Free Ar-3633 - [id number] Implanted:Qty: 1 on 08/19/2022 by Levar Morris MD at [facility] Right: Shoulder [employer] 03/02/2027 AR-3633 / / [id number] Procedures Procedure Name Priority Date/Time Associated Diagnosis Comments ELECTROCARDIOGRAM REPORT Routine 025 4:06 PM ICE DELIVERY DRIVER Palpitations Essential hypertension MCT - MOBILE CARDIAC TELEMETRY EVENT MONITOR Routine 04/08/2024 4:03 PM ICE DELIVERY DRIVER Palpitations LIPID PANEL Routine 04/03/2024 4:10 PM ICE DELIVERY DRIVER from Last 3 Months Results * Electrocardiogram Report (04/08/2024 4:06 PM ICE DELIVERY DRIVER) Pasha Marmolejo MD ECG ORDERABLES Final R esult * MCT Mobile Cardiac Telemetry Event Monitor (04/08/2024 4:03 PM ICE DELIVERY DRIVER) Anatomical Region Laterality Modality Electrocardiogra phy Narrative 05/06/2024 3:31 PM ICE DELIVERY DRIVER Images from the original result were not included. AMBULATORY WHITE SHOE EXAMINER REPORT Patient Name: Kae Escoto Date of : 1960 Requesting Physician: Pasha Marmolejo M.D. Date of Interpretation: 05/06/24 Type of Monitor: 30 Day Mobile Cardiac Outpatient Plaster Mold Maker Date of the Study / Enrollment Period: 04/08/2024 to 04/29/2024 Indication: Palpitations Quality of the Study: Average. Total analysis time of 14 days, 13 hours, and 53 minutes. Interpretation: Predominant rhythm is sinus rhythm. The average heart rate was 93 beats per minute. The minimum heart rate was 65 beats per minute. The maximum heart rate was 153 beats per minute. No evidence of atrial fibrillation, SVT, pauses, heart block, or ventricular tachycardia. The PAC burden is <1%. The PVC burden is <1%. Patient reported 13 events during the monitoring period. Patient reports symptoms of chest pain, lightheadedness, dizziness, rapid/fast heartbeat, flutter/skipped beats that correlated to sinus rhythm / sinus tachycardia with occasional PACs. Conclusions: Sinus rhythm with an average heart rate of 93 beats per minute. Patient's symptoms correlated to sinus rhythm / sinus tachycardia with occasional PVCs. No significant arrhythmias. Pasha Marmolejo M.D., [facility] 05/06/24 Pasha Marmolejo MD [facility] CARD[facility]AC [facility] PRO CEDURES Final Result * Lipid panel (04/03/2024 4:10 PM ICE DELIVERY DRIVER) SCRIBED Cholesterol, Total 119 <200 [facility] SCRIBED HDL 52 >40 [facility] SCRIBED LDL 54 <100 [facility] SCRIBED Triglycerides 61 <150 [facility] Blood Historical Provider LAB BLOOD ORDERABLES Edit ed Result - Final [facility] from Last 3 Months Insurance [facility] [employer] [address] [address] [place] [address] [employer] Care Teams Order Desk Caller Relationship Specialty Start Date End Date Conard Rodriguez MD PCP - General Family Practice 03/28/21
--- OUTSIDE RECORDS SUMMARY | 2024-05-06 19:33 | XMS_ITS | Data Portability ---
Author Organization [facility] [place] Address [address] [place] [address] [place] [address] Care Team Providers Care Tailor Apprentice Name Role Phone ADELAIDE RANGEL Primary Care Provider Assessment No assessment recorded. Plan of Treatment Reminders Order Date Submit Date Provider Last Modified By Organization Details Last Modified Time Details Appointments None recorded. Lab ova1, serum 2023 [facility] (Lab), [address], [place], [address], 13:07:31 Referral None recorded. Procedures None recorded. Surgeries None recorded. Imaging US, transvagina l 2023 [email or web address] [place], [address], [address], [place], [address], 23:31:51 Medication Orders None recorded. Patient TargetsNo targets recorded. Patient InstructionsNo instructions recorded. Reason for Referral None Reported. Results Created Date Observation Date Name Description Value Unit Range Abnormal Flag Note LastModifiedBy Organization Detail LastModifiedTime 12/08/1912/08/2023 OVA 1 scan result See Bakari damon Result Not Available [facility] (Lab) [address], [place], [address], 12/11/2023 13:07:31 06/02/19 24 06/02/2023 US, trans vagin al No observ ation record ed. [email or web address] [place] [address], [place], [address], 06/02/2023 18:00:25 06/02/1906/02/2023 US, trans vagin al No observ ation record ed. [email or web address] [address], [place], [address], 06/02/2023 20:36:59 12/05/1912/05/2023 US, trans vagin al No observ ation [facility] ed[facility] [address], [place], [address], 12/05/2023 17:05:17 12/05/1912/05/2023 US, trans vagin al No observ ation record ed. [email or web address] [address], [place], [address], 12/08/2023 18:03:12 Result Notes None recorded. Problems Name Problem SNOMED Code Status Onset Date Resolution Date Notes Provider Name and Address Organization Details Recorded Time Postcoit al bleeding [id number] Completed 201408/24/2020 Postcoit al bleeding ;Recorde d Elsewher e: No Locat ion: [facility] S ource: EHR Services Rep anastasia: N Heather ce ID: 0001 Emanuel lable Time: 04:00:00 PM Mónica [facility] 12:14:16 Postmeno pausal bleeding [id number] Completed 201808/24/2020 Postmeno pausal bleeding ;Recorde d Elsewher e: No Locat ion: [facility] S ource: EHR Services Rep anastasia: N Heather ce ID: 0001 Emanuel lable Time: 05:30:00 PM Mónica [facility] 12:14:18 Dyspareu aura [id number] Completed 201408/24/2020 Dyspareu aura;Tamir rded Elsewher e: No Locat ion: Izabel felix [facility] S ource: EHR Services Rep anastasia: N Practi ce ID: 0001 Emanuel lable Time: 03:30:00 PM Mónica [facility] 12:13:55 Glycosur ia [id number] Completed 201908/24/2020 Glycosur ia;Recor ded Elsewher e: No Locat ion: [facility] S ource: EHR Services Rep anastasia: N Practi ce ID: 0001 Emanuel lable Time: 03:45:00 PM Mónica [facility] 12:13:58 Menopaus e present [id number] Completed 201708/24/2020 Menopaus e;Record ed Elsewher e: No Locat ion: [facility] elvira [facility] S ource: EHR Services Rep anastasia: N Practi ce ID: 0001 Emanuel lable Time: 11:30:00 AM Mónica [facility] 12:14:08 Screenin g for malignan t neoplasm of cervix Completed 201308/24/2020 Screenin g for malignan t neoplasm s of the cervix;R ecorded Elsewher e: No Locat ion: [facility] elvira [facility] S ource: EHR Services Rep anastasia: Y Practi ce ID: 0001 Emanuel lable Time: 04:45:00 PM Mónica [facility] 12:15:[address] Concept Completed 201508/24/2020 Encntr for rn obgyn exam (general ) (routine ) w/o abn findings ;Recorde d Elsewher e: No Locat ion: [facility] S ource: EHR Services Rep anastasia: N Practi ce ID: 0001 Emanuel lable Time: 03:30:00 PM Mónica [facility] 12:15:[address] Concept Completed 201908/24/2020 Encntr for general adult medical exam w/o abnormal findings ;Recorde d Elsewher e: No Locat ion: Ross[place] elvira [facility] S ource: EHR Services Rep anastasia: N Rubioti ce ID: 0001 Emanuel lable Time: 03:45:00 PM Mónica ivey [facility] 1 12:15:14 Pre-surg shelley evaluati on Completed 201408/24/2020 Pre-oper ative examinat ion, unspecif ied;Tamir rded Elsewher e: No Locat ion: [facility] S ource: EHR [facility] anastasia: N Practi ce ID: 0001 Emanuel lable Time: 08:30:00 AM Mónica [facility] 12:14:53 Screenin g for malignan t neoplasm of rectum Completed 201308/24/2020 Screenin g for malignan t neoplasm s of the rectum;R ecorded Elsewher e: No Locat ion: [facility] S ource: EHR [facility] anastasia: N Practi ce ID: 0001 Emanuel lable Time: 04:45:00 PM Mónica [facility] 1 12:15:12 Vaginiti s and vulvovag initis Completed 201308/24/2020 Vaginiti s;Record ed Elsewher e: No Locat ion: [facility] S ource: EHR Services Rep anastasia: N Practi ce ID: 0001 Emanuel lable Time: 01:30:00 PM Mónica ivey [facility] 1 12:16:09 Superfic ial pain on intercou rse [id number] Completed 201708/24/2020 Superfic ial (introit al) dyspareu aura;Tamir rded Elsewher e: No Locat ion: [facility] S ource: EHR Services Rep anastasia: N Practi ce ID: 0001 Emanuel lable Time: 03:30:00 PM Mónica Veronica null, [facility] 1 12:15:46 Menopaus al symptom [id number] Completed 201308/24/2020 Menopaus al or female climacte riaz states;R ecorded Elsewher e: No Locat ion: [facility] S ource: EHR Services Rep anastasia: N Rubioti ce ID: 0001 Emanuel lable Time: 09:15:00 AM Mónica ivey [facility] 1 12:14:10 Dysmenor aly [id number] Completed 201108/24/2020 Dysmenor aly;Rec orded Elsewher e: No Locat ion: [facility] S ource: EHR Services Rep anastasia: N Rubioti ce ID: 0001 Emanuel lable Time: 01:30:00 PM Mónica [facility] 12:13:52 Tobacco dependen ce syndrome [id number] Completed 201308/24/2020 Tobacco Abuse;Re corded Elsewher e: No Locat ion: [facility] S ource: EHR Services Rep anastasia: Y Heather ce ID: 0001 Emanuel lable Time: 04:45:00 PM Mónica ivey [facility] 12:16:07 Lesion of ovary Completed 201808/24/2020 Other ovarian cyst, left side;Rec orded Elsewher e: No Locat ion: [facility] S ource: EHR Services Rep anastasia: N Rubioti ce ID: 0001 Emanuel lable Time: 03:00:00 PM Mónica ivey [facility] 12:13:20 Depressi ve disorder [id number] Completed 201308/24/2020 Depressi on;Recor ded Elsewher e: No Locat ion: [facility] S ource: EHR Services Rep anastasia: N Rubioti ce ID: 0001 Emanuel lable Time: 04:45:00 PM Mónica ivey [facility] 12:13:17 Speciali zed medical examinat ion Completed 201308/24/2020 Gynecolo gical Examinat ion;Tamir rded Elsewher e: No Locat ion: Izabel felix [facility] S ource: EHR Services Rep anastasia: N Rubioti ce ID: 0001 Emanuel lable Time: 04:45:00 PM Mónica ivey [facility] 12:15:20 Postoper ative follow-u p visit Completed 201408/24/2020 Follow-u p examinat ion, followin g unspecif ied surgery; Recorded Elsewher e: No Locat ion: [place] elvira [facility] S ource: EHR Services Rep anastasia: N Rubioti ce ID: 0001 Emanuel lable Time: 10:15:00 AM Mónica ivey [facility] 12:14:50 Pregnanc y test negative [id number] Completed 201108/24/2020 Pregnanc y examinat ion or test, negative result;R ecorded Elsewher e: No [facility]at [facility]ce: EHR Services Rep anastasia: N Rubioti ce ID: 0001 Emanuel lable Time: 01:30:00 PM Mónica ivey [facility] 12:14:56 Acute vaginiti s 84696344 Completed 201608/24/2020 Vaginiti s;Record ed Elsewher e: No Locat ion: [facility] S ource: EHR Services Rep anastasia: N Rubioti ce ID: 0001 Emanuel lable Time: 03:30:00 PM Mónica ivey [facility] 12:13:08 Adult health examinat ion Completed 201308/24/2020 Routine Medical Exam;Rec orded Elsewher e: No Locat ion: [facility] S ource: EHR Services Rep anastasia: N Practi ce ID: 0001 Emanuel lable Time: 04:45:00 PM Mónica ivey [facility] 1 12:13:11 Body mass index 25-29 - overweig 472604130 Completed 201708/24/2020 Body mass index (BMI) 28.0-28. 9, adult;Re corded Elsewher e: No Locat ion: Izabel felix [facility] S ource: EHR Services Rep anastasia: N Practi ce ID: 0001 Emanuel lable Time: 04:00:00 PM Mónica [facility] 12:13:13 Nipple bruised 941563147 Completed 201808/24/2020 Contusio n of breast, unspecif ied breast, initial encounte r;Record ed Elsewher e: No Locat ion: Izabel felix [facility] S ource: EHR Services Rep anastasia: N Practi ce ID: 0001 Emanuel lable Time: 03:00:00 PM Mónica Matrin [facility] 12:14:13 Cyst of ovary Completed 201808/24/2020 Unspecif ied ovarian cyst, unspecif ied side;Rec orded Elsewher e: No Locat ion: [facility] S ource: EHR Services Rep anastasia: N Practi ce ID: 0001 Emanuel lable Time: 05:30:00 PM Mónica ivey [facility] 12:13:15 Screenin g for malignan t neoplasm of colon Completed 201008/24/2020 Special screenin g for malignan t neoplasm s, colon;Pr actice ID: 0001 Mónica ivey [facility] 12:15:09 Increase d frequenc y of urinatio n [id number] Completed 201308/24/2020 Urinary frequenc y;Practi ce ID: 0001 Mónica Veronica [facility] 12:14:[address] Concept Completed 201708/24/2020 Encounte r for general adult medical exam w abnormal findings ;Practic e ID: 0001 [facility] 12:15:04 Irregula r intermen strual bleeding 98170505 Completed 201408/24/2020 Metrorrh agia;Pra ctice ID: 0001 Mónica Martin [facility] 12:14:04 Hyperten sive disorder 21401190 Active 2023 Izabel Bashir [facility] 4 16:54:57 Hypercho lesterol emia 03750206 Active 2023 Izabel Bashir [facility] 4 16:55:19 Herpes simplex 23989335 Active 2023 Izabel Bashir [facility] 4 16:55:28 Diabetes mellitus 63933479 Active 2023 Izabel Bashir [facility] 4 19:51:19 Problem Notes None recorded. Procedures Surgical History Date Name Laterality Status Provider Name and Address Organization Details Recorded Time 02/17/20 24 SALPINGO-OOPHORECT MALACHI, LAPAROSCOPIC (SURG) completed Eloisa Suazo [facility] 02/17/2024 10:18:54 03/11/19 24 Date of Last Pap Smear completed Izabel Bashir [facility] 06/05/2023 16:55:49 11/02/19 23 Date of Last Mammogram completed Carmela Swanson [facility] 03/11/2023 17:05:32 03/03/19 22 [facility] 06/06/2023 19:45:59 03/03/19 20 procedure on shoulder completed Izabel Bashir [facility] 12/08/2023 17:15:44 03/03/19 18 Carpal tunnel surgery [facility] 12/08/2023 17:18:50 03/03/19 17 Carpal tunnel surgery [facility] 12/08/2023 17:18:47 05/22/19 16 completed [facility] 09/07/2020 14:16:05 05/22/19 16 Date of Last Colonoscopy completed [facility] 09/07/2020 14:16:05 05/22/19 16 Colonoscopy completed [facility] 06/06/2023 19:48:30 08/25/19 15 Colposcopy completed [facility] 06/06/2023 19:38:22 08/15/19 15 Colposcopy completed [facility] 06/06/2023 19:47:49 03/03/19 15 Hysteroscopy [facility] 06/06/2023 19:44:55 03/03/19 10 Neck spine disk surgery [facility] 06/06/2023 19:49:25 03/03/19 05 total knee replacement completed Flaquita Patel [facility] 09/14/2019 15:58:36 03/03/19 04 total knee replacement completed [facility] 12/08/2023 17:16:32 03/03/19 03 Knee arthroscopy/surger y completed [facility] 12/08/2023 17:16:19 03/03/19 00 reconstruction of anterior cruciate ligament of knee joint completed [facility] 06/06/2023 19:43:49 03/03/19 00 Knee arthroscopy/surger y completed [facility] 12/08/2023 17:16:15 10/09/18 94 section completed [facility] 12/08/2023 17:18:12 03/03/18 94 Tubal Ligation completed [facility] 06/06/2023 19:48:16 12/05/18 90 section completed [facility] 12/08/2023 17:18:06 03/03/18 85 Oophorectomy completed [facility] 06/06/2023 19:43:14 03/03/18 84 Dilation and Curettage completed [facility] 09/14/2019 15:55:30 03/03/18 84 removal of ovarian cyst completed [facility] 09/14/2019 15:55:50 03/03/18 83 repair of ovary completed [facility] 09/14/2019 15:56:11 03/03/18 83 Laparoscopy completed [facility] 09/14/2019 15:56:29 03/03/18 83 Laparoscopy completed [facility] 12/08/2023 17:15:27 03/03/18 82 Dilation and Curettage completed [facility] 12/08/2023 17:14:47 03/03/18 81 Laparoscopy completed [facility] 12/08/2023 17:15:10 03/03/18 80 appendectomy completed [facility] 06/06/2023 19:47:17 03/03/18 80 Dilation and Curettage completed [facility] 12/08/2023 17:14:37 03/03/18 78 graft of skin to skin completed [facility] 06/06/2023 19:46:55 03/03/18 78 graft of skin to skin completed [facility] 12/08/2023 17:14:27 Hysteroscopy completed [facility] 12/08/2023 17:09:31 Imaging Results Imaging Date Name Status LastModified by Organization Details LastModified Time 06/02/2023 US, transvaginal completed [email or web address] felix [address], [place], [address], 06/02/2023 18:00:25 06/02/2023 US, transvaginal completed [email or web address] [address], [place], [address], 06/02/2023 20:36:59 12/05/2023 US, transvaginal completed [email or web address] Izabel felix [address], [place], [address], 12/05/2023 17:05:17 12/05/2023 US, transvaginal completed [email or web address] [address], [place], [address], 12/08/2023 18:03:12 Procedure Notes None recorded. Medical Equipment None Reported. Allergies Allergen ID Allergen Name Allergen Category Reaction Reaction Severity Criticality Documentation Date Start Date Code Code System Note Provider Name and Address Organization Details Recorded Time 1323 amoxicill in medicatio n Not available Not available Not available 09/14/2019 723 RxNorm Flaquita Patel [facility], [facility] 0 15:53:50 1324 erythromy linn medicatio n Not available Not available Not available 09/14/2019 4053 RxNorm Flaquita Patel [facility] 0 15:54:02 1325 morphine medicatio n Not available Not available Not available 09/14/2019 7052 RxNorm Flaquita Patel [facility], [facility] 0 15:54:10 1326 potassium medicatio n Not available Not available Not available 09/14/2019 8588 RxNorm Izabel Bashir [facility], [facility] 4 17:09:40 28994 Augmentin medicatio n Not available Not available Not available 02/13/2023 45963 2 RxNorm Mónica Martin [facility], [facility] 3 12:12:04 Medications Name Sig Start [...] ed Elsewher e: No Locat ion: Izabel fleix [facility] odify By: marybel floresunter DateTime : 03/05/19 [...] ed Elsewher e: Yes Loca tion: Izabel [facility] odify By: [email or web address] Encount er DateTime : 05/03/19 12 03:30:00 PM Not Available Not Available Not Available clobetaso l 0.05 % topical cream 02/10 completed Not Available Not Available Not Available Wellbutri n SR 150 mg tablet, 12 hr sustained -release TAKE 1 TABLET BY ORAL ROUTE EVERY DAY 03/25 completed Prescrib ed Elsewher e: No Locat ion: Izabel [facility] odify By: cathy floresunter DateTime : 10/13/19 14 01:38:04 PM Not Available Not Available Not Available Rachael Low Dose Aspirin 81 mg tablet,de layed release take 1 tablet (81MG) by oral route every day 02/13 completed Prescrib ed Elsewher e: No Locat ion: Izabel [facility] odify By: cathy floresunter DateTime : 02/06/20 [...] ed Elsewher e: No Locat ion: [facility] odify By: amkaleb Felix ncounter DateTime : 01/20/20 14 01:30:00 PM Not Available Not Available Not Available Flagyl 500 mg tablet take 1 tablet by oral route every 12 hours 02/13 completed Prescrib ed Elsewher e: No Locat ion: Izabel felix [facility] odify By: amkaleb floresuntshannon DateTime : 10/15/19 [...] Prescrib ed Elsewher e: No Locat ion: [facility] odify By: amkaleb floresuntshannon DateTime : 09/21/19 14 09:15:00 AM Not Available Not Available Not Available lisinopri l 10 mg tablet 2023 active Not Available Not Available Not Avai lable CombiPatc h 0.05 mg-0.25 mg/24 hr transderm al apply 1 patch by transder mal route 2 times every week 04/29 completed Prescrib ed Elsewher e: No Locat ion: [facility] odify By: marybel floresuntshannon DateTime : 04/09/19 [...] Elsewher e: No Locat ion: Izabel felix [facility] odify By: christie Encount er DateTime : [...] Elsewher e: No Locat ion: Rossy elvira [facility] odify By: alberto ruiz DateTime : 12/08/19 16 11:47:54 AM Not Available Not Available Not Available Wellbutri n XL 150 mg 24 hr tablet, extended release take 1 tablet by oral route every day 04/29 completed Prescrib ed Elsewher e: Yes Loca tion: Izabel felix [facility] odify By: marybel casas DateTime : 02/28/20 18 03:30:00 PM Not Available Not Available Not Available nitrofura ntoin monohydra te/macroc rystals 100 mg capsule 02/13 completed Not Available Not Available Not Available Lantus U-100 Insulin 100 unit/mL subcutane ous cartridge inject by subcutan eous route as per insulin protocol 09/07 completed Prescrib ed Elsewher e: Yes Loca tion: [facility] odify By: helena ruiz DateTime : 02/06/20 [...] Natasha e: No Locat ion: Izabel felix [facility] odify By: [email or web address] Encount er DateTime : 11/15/19 11:30:00 AM [...] Not Available Not Available FreeStyle Hien 2 [place] 02/13 completed Not Available Not Available Not Available Vitals Date Recorded Body height Body mass index (BMI) Body weight Systolic blood pressure Diastolic blood pressure Provider Name and Address Organization Details Last Updated DateTime 06/05/2023 159.39 cm 26.1 kg/m2 38627.49 g 150 mm[Hg] 78 mm[Hg] Izabel [facility] 16:53:38 Date Recorded Body height Body mass index (BMI) Body weight Systolic blood pressure Diastolic blood pressure Provider Name and Address Organization Details Last Updated DateTime 12/08/2023 159.39 cm 25.4 kg/m2 88594.12 g 150 mm[Hg] 69 mm[Hg] Izabel Bashir [facility] 4 17:09:16 Date Recorded Body height Body mass index (BMI) Body weight Systolic blood pressure Diastolic blood pressure Provider Name and Address Organization Details Last Updated DateTime 02/11/2024 159.39 cm 25.7 kg/m2 07722.3 g 154 mm[Hg] 77 mm[Hg] Carmela [facility] 4 16:48:31 Date Recorded Body height Body mass index (BMI) Body weight Systolic blood pressure Diastolic blood pressure Provider Name and Address Organization Details Last Updated DateTime 02/26/2024 159.39 cm 25.7 kg/m2 04503.3 g 132 mm[Hg] 78 mm[Hg] Carmela [facility] 4 09:43:06 Social History Question Answer Notes LastModified by Organizat ion Details LastModified Time Tobacco Smoking Status Current Every Day Smoker [email or web address] 03/11/2023 16:40:13 Do You Have An [...] Or The Highest Degree You Have Received? 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 Yes Information not available 08/24/2020 Have You Ever Been Counseled For Unhealthy Alcohol Use? No [email or web address] Information not available 06/05/2023 Do You Use [...] Anxious, Or Unable To Sleep At Night)? [id number] Information not available 08/24/2020 Do You Use Any Illicit Or Recreational Drugs? No Information not available 08/24/2020 Do You Use Sunscreen Routinely? No Information not available 08/24/2020 Has Tobacco Cessation Counseling Been Provided? No [email or web address] Information not available 06/05/2023 How Many Years Have You Smoked Tobacco? 35 Information not available 09/07/2020 Have You Used IV Drugs? No Information not available 08/24/2020 Do You Or Have You Ever Used Any Other Forms Of Tobacco Or Nicotine? No [email or web address] Information not available 06/05/2023 Sex: Unknown Functional Status Question Answer Note LastModified by Organizat ion Details LastModified Time Do you have difficulty walking or climbing stairs? No [email or web address] Information not available 06/05/2023 Are you able to walk? YESWOREST [email or web address] Information not available 08/24/2020 Are you able to care for yourself? Yes Information not available 06/05/2023 Do you have difficulty dressing or bathing? No [email or web address] Information not available 06/05/2023 What is your [...] SNOMED-CT Code Diagnosis ICD10 Code Diagnosis Note [id number] Thania Maxwell [place] [address] [address] 09/15/2019 09:56:56 09/15/2019 10:35:44 Mastodynia of left breast [id number] 7213199 N64.4 Tenderness in left breast. History of benign lump (per patient). Diagnostic mammogram with ultrasound if needed. [id number] Michael Mcdonald MD [place] [address] [address] 08/24/2020 11:59:46 08/25/2020 09:51:56 Lesion of vulva 701255209 N90.89 This patient is a 60-year-ol d [...] that at the for an appointmen t [id number] [facility] [address] [address] 09/07/2020 14:03:15 09/07/2020 14:52:01 Gynecologic examination 33563349 Z01.419 Take Calcium with Vitamin D 12-1500mg daily. Do monthly self breast exams. It is advised to get annual flu shot in the fall and she could obtain at [facility] or [facility] care clinic. If you haven't received the [...] exa 0rderedmam mo ordered Screening mammography 24 281736 Z12.31 Postmenopa usal osteopenia 428044179 M85.80 Vaginitis [id number] N76.0 Has DM.On insulinNot es she will get yeast infection at least every other month.1 diflucan usually clears it up.Difluca n with a few RF sent Has f/u Dr. Mcdonald for left buttocks abscess/cy stic lesion coming up.This area is doing well & now non-inflam ed and non-tender but still advise f/u. [id number] Michael Mcdonald MD [facility] [address] [address] 02/13/2023 11:51:41 02/13/2023 14:48:49 Pain in pelvis [id number] R10.2 62-year-ol d female with pelvic pain. She is history of ovarian cysts. She has sharp left-sided pelvic pain. It is intermitte nt. To obtain ultrasound . She is a normal exam. she will follow-up after ultrasound to discuss a treatment plan. [id number] Karon Aguilar [facility] [address] [address] 02/18/2023 16:15:42 02/18/2023 17:11:48 Pain in pelvis [id number] R10.2 62-year-ol d female with pelvic pain. She is history of ovarian cysts. She has sharp left-sided pelvic pain. It is intermitte nt. To obtain ultrasound . She is a normal exam. she will follow-up after ultrasound to discuss a treatment plan. [id number] Michael Mcdonald MD [facility] [address] [address] 02/25/2023 15:54:24 02/25/2023 17:09:49 Pain in pelvis [id number] R10.2 Mass of ovary [id number] R19.09 this patient is a 62-year-ol d [...] ce. More than 50% was counseling . [id number] [facility] [address] [address] 03/11/2023 16:40:03 03/11/2023 18:49:38 Gynecologic examination [id number] Z01.419 Take Calcium with Vitamin D 12-1500mg daily. Do monthly self breast exams. It is advised to get annual flu shot in the fall and she could obtain at [facility] or [facility] care clinic. If you haven't received the [...] if need referral for this service. Vaginitis [id number] N76.0 Diflucan sent PRN use for yeast [id number] Karon Aguilar [facility] [address] [address] 06/02/2023 16:21:43 06/02/2023 17:06:36 Ultrasound scan abnormal [id number] R93.89 [id number] Michael Mcdonald MD [facility] [address],[facility] [place] [address] 06/05/2023 16:20:05 06/05/2023 17:37:06 Mass of ovary [id number] R19.09 63-year-ol d female who presents for follow-up on ovarian lesion. Left ovary was thought to have a dermoid. Looks less conspicuou s today. Smaller lesion. Less luminous. Agreed to follow-up again in 6 months with ultrasound . She has no pain. [id number] Pilar Hare [facility] [address] [address] 12/05/2023 16:20:12 12/08/2023 08:59:28 Ultrasound scan abnormal [id number] R93.89 [id number] Michael Mcdonald MD [place] [place] [address],[place] [address] 12/08/2023 16:39:48 12/11/2023 10:31:16 Mass of ovary [id number] R19.09 63-year-ol d female who presents for [...] 20 minutes on her care in total. [id number] Michael Mcdonald MD [facility] [address],[place] [address] 02/11/2024 16:13:15 02/11/2024 17:27:31 Cyst of ovary [id number] N83.209 63-year-ol d female with left ovarian cyst. We agreed to perform left salpingo-o ophorectom y. She understand s the risks, benefits, and alternativ es. She has completed the informed consent process and is ready to proceed. [id number] Michael Mcdonald MD [facility] [address] [address] 02/26/2024 09:29:33 02/26/2024 10:23:41 Postoperative care [id number] Z48.89 This patient is a 63-year-ol d [...] Oliver Member ID Guarantor Name 06/05/2023 1 [facility] [id number] Tabby L Maitland [id number] Tabby L Maitland 12/05/2023 1 [facility] [id number] Tabby L Maitland [id number] Tabby L Supply Chain Project Manager 12/08/2023 1 [facility] [id number] Tabby L Supply Chain Project Manager [id number] Tabby L Maitland 02/11/2024 1 [facility] [id number] Tabby L Supply Chain Project Manager [id number] Tabby L Supply Chain Project Manager 02/26/2024 1 [facility] [id number] Tabby L Maitland [id number] Tabby L Maitland Notes Date Note Type Note Provider Name and Address Organization Details Recorded Time 06/05/2023 text/html 63-year-old joanna tomas who presents for follow-up on ovarian lesion. Left ovary was thought to have a dermoid. Looks less conspicuous today. Smaller lesion. Less luminous. Agreed to follow-up again in 6 months with ultrasound. She has no pain. Michael Mcdonald MD [address], [place], [address], [facility] 06/05/2023 17:36:37 12/08/2023 text/html 63-year-old femtanna tomas who presents for follow-up on ovarian lesion. Reviewed the results again today. Essentially stable. Sluo-to-kimpczevos worrisome. Discussed removal. Possible dermoid. Agreed to tumor marker study. She will obtain tumor marker study. We will have follow-up ultrasound in a couple of months. We will consider removal of the ovary again. Believe it should be removed. I expressed that to her. I spent over 20 minutes on her care in total. Michael Mcdonald MD [address], [place], [address], [facility] 12/10/2023 17:31:36 02/11/2024 text/html 63-year-old femtanna [...] infection. Michael Mcdonald MD [address], [place], [address], [facility] 02/11/2024 17:25:22 02/26/2024 text/html This patient is a 63-year-old female who presents for postop follow-up. She is 1 week postop from a laparoscopic right salpingo-oophorect malachi. Her incisions are clean dry and intact. She has no complaints. She is recovering normally. She will follow up as needed. Michael Mdconald MD [address], [place], [address], [facility] 02/26/2024 10:23:14 OBGyn Episode Ob Episode Information Episode Created Date Number of Fetuses Patient Bloodtype Patient rh Status Prepregnancy Weight lbs Domestic Partner Domestic Partner Phone Father Name Chief Deputy Court Clerk Status 09/15/19 1 CLOSED Fetus Data First [...] Domestic Partner Domestic Partner Phone Father Name Chief Deputy Court Clerk Status 09/15/19 1 CLOSED Fetus Data First [...] Domestic Partner Domestic Partner Phone Father Name Chief Deputy Court Clerk Status 09/15/19 1 CLOSED Fetus Data First [...]
--- OUTSIDE RECORDS SUMMARY | 2024-05-06 19:33 | XMS_ITS | Referral Summary ---
Author Organization [facility] Address [address] [address] Care Team Providers Care Program Aide Name Role Phone Conrad Rodriguez MD Primary Care Provider Encounters Date Type Department Care Team Description 04/29/2024 Telephone [facility] Cardiology [address] [place] [address] [place] [phone] Pasha Marmolejo MD 04/23/2024 Telephone [facility] [address] [place] [address] [place] [phone] Falquita Leggett MA Rash due to ekg monitor tech 04/08/2024 Orders Only [facility] Cardiology [address] [place] [phone] ProviderPonce MD 04/08/2024 2:30 PM BOX LINING MACHINE FEEDER Ancillary Procedure [facility] [address] [place] [phone] Palpitations 04/08/2024 3:15 PM BOX LINING MACHINE FEEDER Office Visit [facility] [address] [place] [phone] Pasha Marmolejo MD Palpitations (Primary Dx); Essential hypertension; Mixed hyperlipidemia from Last 3 Months Allergies Active Allergy Reactions Criticality Noted Date [...] ORALIndications:he alth Take 50 mg by mouth spanish language lecturer before breakfast Active clobetasol (TEMOVATE) 0.05 % [...] ued(Patie nt Reported) flash glucose scanning reader (Eataly Net Hien 14 Day [place]) misc every 14 (fourteen) days 025 Discontin [...] (07/11/2021): Added automatically from request for surgery [id number] Guyon syndrome, 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 Overview (07/11/2021): Added automatically from request for surgery [id number] Essential hypertension 09/26/2020 Hyperlipidemia 09/26/2020 KEVIN on CPAP 09/26/2020 Type 2 diabetes mellitus 09/26/2020 Biceps tendinitis of right upper extremity 09/18 Overview (09/18/2020): Added automatically from request for surgery [id number] Glycosuria 04/29/2019 Lateral epicondylitis of left elbow 08/19/2018 Overview (08/19/2018): Added automatically from request for surgery [id number] Cyst of ovary 05/14/2018 Smoker 11/14/2017 Menopause [...] malignant neoplasm o f colon 06/27/2010 Immunizations Immunization Administration Dates Next Due Influenza, [...] on file Legal Sex Female 1:04 AM BOX LINING MACHINE FEEDER Gender Identity Not on file Sexual Orientation Not on file Last Filed Vital Signs Vital Sign Reading Time Taken Comments Blood Pressure 142/64 04/08/2024 3:23 PM BOX LINING MACHINE FEEDER Pulse 84 04/08/2024 3:23 PM BOX LINING MACHINE FEEDER Temperature 36.7 C (98.1 F) 08/19/2022 3:16 PM CDT Respiratory Rate 18 08/19/2022 3:50 PM CDT Oxygen Saturation 96% 04/08/2024 3:23 PM BOX LINING MACHINE FEEDER Inhaled Oxygen Concentration - - Weight 66.2 kg (146 lb) 04/08/2024 3:23 PM BOX LINING MACHINE FEEDER Height 158.8 cm (5' 2.5 ) 04/08/2024 3:23 PM BOX LINING MACHINE FEEDER Body Mass Index 26.28 04/08/2024 3:23 PM BOX LINING MACHINE FEEDER Plan of Treatment Not on file Medical Devices Implanted Type Area Sas Bi Developer Device Identifier Shelf Expiration Date Model / Serial / Lot Free Stle Hien N/A: Arm Description:Free style hien [employer] Ar-3670 Set Implant Arthrex Fibertak Biceps Sterile Latex Free - [id number] Implanted:Qty: 1 on 09/28/2020 by Enoc Cullen MD at [facility] Right: Shoulder [employer] 07/31/2025 AR-3670 / / [id number] [employer] Ar-2324 Bcm Swivelock 4.75mm 24.5mm Self Punch Vent Shoulder Nineveh Suture - [id number] Implanted:Qty: 1 on 09/28/2020 by Enoc Cullen MD at [facility] Right: Shoulder [employer] 05/31/2024 AR-2324BC M / / [id number] [employer] Swivelock C 4.75mm 19.1mm Closed Eyelet Vent Nineveh Suture Ar-2324bcc - [id number] Implanted:Qty: 1 on 08/19/2022 by Levar Morris MD at [facility] Right: Shoulder [employer] [id number] 05/31/2026 AR-2324BC C / / [id number] [employer] Swivelock C 4.75mm 19.1mm Closed Eyelet Vent Nineveh Suture Ar-2324bcc - [id number] Implanted:Qty: 1 on 08/19/2022 by Levar Morris MD at [facility] Right: Shoulder [employer] [id number] 05/31/2026 AR-2324BC C / / [id number] [employer] Arthrex Fibertak Tape 3 Load Rotator Cuff Nineveh Suture Sterile Latex Free Ar-3633 - [id number] Implanted:Qty: 1 on 08/19/2022 by Levar Morris MD at [facility] Right: Shoulder [employer] 03/02/2027 AR-3633 / / [id number] Procedures Procedure Name Priority Date/Time Associated Diagnosis Comments ELECTROCARDIOGRAM REPORT Routine 025 4:06 PM BOX LINING MACHINE FEEDER Palpitations Essential hypertension MCT - MOBILE CARDIAC TELEMETRY EVENT MONITOR Routine 04/08/2024 4:03 PM BOX LINING MACHINE FEEDER Palpitations LIPID PANEL Routine 04/03/2024 4:10 PM BOX LINING MACHINE FEEDER from Last 3 Months Results * Electrocardiogram Report (04/08/2024 4:06 PM BOX LINING MACHINE FEEDER) Pasha Marmolejo MD ECG ORDERABLES Final R esult * MCT Mobile Cardiac Telemetry Event Monitor (04/08/2024 4:03 PM BOX LINING MACHINE FEEDER) Anatomical Region Laterality Modality Electrocardiogra phy Narrative 05/06/2024 3:31 PM BOX LINING MACHINE FEEDER Images from the original result were not included. AMBULATORY CABLEWAY OPERATOR REPORT Patient Name: Kae Escoto Date of : 1960 Requesting Physician: Pasha Marmolejo M.D. Date of Interpretation: 05/06/24 Type of Monitor: 30 Day Mobile Cardiac Outpatient Firefighter Marine Date of the Study / Enrollment Period: [...] PVCs. No significant arrhythmias. Pasha Marmolejo M.D., [facility] 05/06/24 Pasha Marmolejo MD [facility] PRO CEDURES Final Result * Lipid panel (04/03/2024 4:10 PM BOX LINING MACHINE FEEDER) SCRIBED Cholesterol, Total 119 <200 [facility] SCRIBED HDL 52 >40 [facility] SCRIBED LDL 54 <100 [facility] SCRIBED Triglycerides 61 <150 [facility] Blood Historical Provider LAB BLOOD ORDERABLES Edit ed Result - Final [facility] from Last 3 Months Insurance [facility] H[facility]/PPO Address: [address] [address] [place] [address] [facility] HMO/PPO Address: [address] [address] [place] [address] [facility] HMO/PPO Address: [address] [address] [place] [address] [employer] [place] [address] [address] [place] [address] [employer] Care Teams Program Aide Relationship Specialty Start Date End Date Conrad Rodriguez MD PCP - General Family Practice 03/28/21
--- OUTSIDE RECORDS SUMMARY | 2024-05-06 19:33 | XMS_ITS | Continuity of Care Document ---
Author Organization [facility] Address [address] [place] [address] Phone Care Team Providers Care Tutoring Assistant Name Role Phone Unavailable Unavailable Unavailable Advance Directives Directive Yes / No Effective Date File Name No Information Encounters Encounter Description Practice Location Reason(s) For Visit Diagnoses Date Provider Providers Copied on Encounter [facility], [address], [place], [place], [id number] , [place] tel:[phone] [facility] CERVICAL DISC DISPLACMNTLUMBAR DISC DISPLACEMENT 200 7 No Information Family History Family Member Type Diagnosis Age At Onset No Information Payers Payer name Insurance type Covered constitution party ID Authoriza tion(s) No Information Social [...]
[2024-05-06 19:35] VITALS: BP 177/88; PULSE 97; RESP 14; TEMP 36.4; O2SAT 98
[2024-05-06 19:55] LABS: Basophils Percent Auto 0.3 % (0.2-1.2); Eosinophils Absolute Auto 0.1 K/mm3 (0-0.3); Eosinophils Percent Auto 1.2 % (0-4.4); Hematocrit 42.8 % (37.0-47.0); Hemoglobin 14.2 g/dL (12.0-15.0); Immature Granulocyte Absolute 0.03 K/mm3 (0.00-0.031); Immature Granulocyte Percent A 0.4 % (0-0.5); Lymphocytes Absolute Auto 0.81 K/mm3 (0.9-3.2); Lymphocytes Percent Auto 10.4 % (18.3-44.2); Mean Corpuscular HGB Conc 33.2 g/dl (32-36); Mean Corpuscular Volume 96.4 fl (80-100); Mean Platelet Volume 9.6 fl (7.4-10.4); Monocytes Absolute Auto 0.5 K/mm3 (0.1-0.6); Neutrophils Absolute Auto 6.4 K/mm3 (1.3-6.7); Neutrophils Percent Auto 81.7 % (45.5-73.1); Platelet Count Result 198 k/mm3 (150-375); Red Blood Count 4.44 M/mm3 (4.2-5.4); Red Cell Distribution Width 12.9 % (11.5-14.5); White Blood Count 7.8 K/mm3 (4.5-10.0)
[2024-05-06 20:05] LABS: Alanine Aminotransferase 22 U/L (6-35); Albumin Level 4.2 g/dL (3.5-5.1); Alkaline Phosphatase 76 U/L (38-126); Anion Gap 8 mmol/L (4-12); Aspartate Amino Transferase 21 U/L (14-36); Bilirubin,Total 0.4 mg/dL (0.2-1.3); Blood Urea Nitrogen 20 mg/dL (7-17); Calcium 9.5 mg/dL (8.4-10.2); Carbon Dioxide 24 mmol/L (22-30); Chloride 104 mmol/L (98-107); Estimated CRCL calculation 77 ml/min; Estimated Glomerular Filt Rate > 60; Glucose 295 mg/dL (65-110); Lipase 83 U/L (23-300); Potassium 4.2 mmol/L (3.4-5.0); Sodium 136 mmol/L (137-145)
[2024-05-06 20:06] LABS: INR 0.9; Prothrombin Time 12.8 Seconds (11.1-14.7)
[2024-05-06 20:07] LABS: Partial Thromboplastin Time 22.9 Seconds (22.3-36.8)
[2024-05-06 20:17] LABS: Troponin I < 0.012 ng/mL (0.000-0.034)
[2024-05-06 20:31] LABS: Influenza A QL RT-PCR Negative (Negative); Influenza B QL RT-PCR Negative (Negative); RSV RNA, RT-PCR Negative (Negative); SARS-CoV-2 RNA PCR Negative (Negative)
[2024-05-06 23:09] LABS: Troponin I < 0.012 ng/mL (0.000-0.034)
--- NOTE | 2024-05-06 23:49 | ED.GENADULT ---
HPI - General Adult General Chief complaint: Arrhythmia/Palpitations Stated complaint: palpations Time Seen by Provider: 05/06/24 22:53 History of Present Illness HPI narrative: Patient is a 63-year-old female who presents emergency department chief complaint of palpitations and lethargy. The patient states she felt like her heart was flipping and felt like it was beating fast. 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 Related Data Home Medications ?Medication ?Instructions ?Recorded ?Confirmed ?Last Taken ?Type aspirin 81 mg tablet,delayed 81 mg PO DAILY 03/15/19 03/17/24 02/16/24 History release (Rachael Low Dose Aspirin) cholecalciferol (vitamin D3) 50 50 mcg PO DAILY 09/25/19 03/17/24 02/13/24 History mcg (2,000 unit) capsule biotin 1 mg capsule 1 mg PO DAILY 09/17/21 03/17/24 02/13/24 History metformin 1,000 mg tablet 500 mg PO BID 02/09/24 03/17/24 02/16/24 History Allergies Allergy/AdvReac Type Severity Reaction Status Date / Time erythromycin base AdvReac Intermediate Nausea and Verified 03/17/24 15:43 Vomiting methotrexate AdvReac Intermediate hair loss Verified 03/17/24 15:43 morphine AdvReac Intermediate vomiting Verified 03/17/24 15:43 amoxicillin AdvReac Mild yeast Verified 03/17/24 15:43 infections lovastatin AdvReac Mild aching in Verified 03/17/24 15:43 legs Review of Systems Review of Systems: A 10 system review of systems was completed on the patient and is negative except for what is stated in the HPI. Nursing and ancillary documentation was reviewed. [facility] Past Medical History Medical History Emphysema/COPD Insomnia Tobacco use disorder 40 pack-year history Plaque psoriasis Biceps tendon tear Arthritis GERD without esophagitis Vitamin D deficiency Left rotator cuff tear Follows with ortho for injections Essential (primary) hypertension Herpes zoster without complication KEVIN on CPAP Other hyperlipidemia Type 2 diabetes mellitus without complications Surgical History Surgical History History of decompression of ulnar nerve (~04/2021) left History of carpal tunnel surgery of left wrist (~04/2021) H/O skin graft (~1977) H/O elbow surgery (~2018) H/O cervical spine surgery (~2009) History of right oophorectomy (~1984) H/O section 1989, 1993 H/O rotator cuff surgery (~08/2020) History of left knee replacement (~2004) History of appendectomy (~1979) Family History Family History Mother Family history of diabetes mellitus in first degree relative Sibling Lung cancer Lung nodule Social History Social History Social History: Patient is , she and her Elian live in [place]. They enjoy watching their 3 grandchildren (a 3 y/o and twin babies b. 10/2020) every Friday night. 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 Smoking packs per day: 0.75 Smoking cigarettes per day: 15.0 Years smoked: 40 Smoking pack-years: 30.00 Smoking status: Current every day smoker Tobacco type: cigarettes Second hand tobacco smoke exposure: Yes Alcohol intake: current Drinks per week: 8 Substance use: never Substance use type: does not use Lack of Transportation: No Lack of Food: Never True Current Housing: I Have Housing Concerned About Future Housing: No Difficulty Paying Gas/Electric Bills: No Difficulty Paying for Meds: No Currently Unemployed: No Education: Master's Degree or Higher Difficulty w/ Childcare or Family Care: No Living arrangements: with family Occupation/Education: occupation 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 HEAD: Normocephalic, atraumatic. EYES: PERRLA and EOMI. ENT: Nares clear, no rhinorrhea or epistaxis. Mucous membranes moist. NECK: Supple. CHEST: Clear to auscultation. No respiratory distress. HEART: Regular rate and rhythm. No murmur heard. Normal peripheral pulses. ABDOMEN: Soft, nontender, nondistended, normal active bowel sounds. EXTREMITIES: Normal range of motion. No edema. SKIN: Warm, dry, no rash. NEURO: No focal deficits. Alert and oriented x3. PSYCH: Normal mood and affect. Course Vital Signs Vital signs: Vital Signs Temperature 36.4 C L 05/06/24 19:35 Pulse Rate 97 05/06/24 19:35 Respiratory Rate 14 05/06/24 19:35 Blood Pressure 177/88 H 05/06/24 19:35 Pulse Oximetry 98 05/06/24 19:35 Oxygen Delivery Room Air 05/06/24 19:35 Temperature 36.4 C L 05/06/24 19:35 Pulse Rate 97 05/06/24 19:35 Respiratory Rate 14 05/06/24 19:35 Blood Pressure 177/88 H 05/06/24 19:35 Pulse Oximetry 98 05/06/24 19:35 Oxygen Delivery Room Air 05/06/24 19:35 Medical Decision Making [facility] Narrative Medical decision making narrative: Differential diagnosis includes electrolyte abnormality, dehydration, dysrhythmia, Laboratory studies were obtained on the patient showed normal CBC CMP was within normal limits potassium was 4.2 BUN was 20 and creatinine was 0.6 glucose was 295 troponin was negative at 0 hour 3 hour COVID flu and RSV are negative chest x-ray showed No acute abnormality. Vital Signs Vital Signs: Vital Signs Temperature 36.4 C L 05/06/24 19:35 Pulse Rate 97 05/06/24 19:35 Respiratory Rate 14 05/06/24 19:35 Blood Pressure 177/88 H 05/06/24 19:35 Pulse Oximetry 98 05/06/24 19:35 Oxygen Delivery Room Air 05/06/24 19:35 Temperature 36.4 C L 05/06/24 19:35 Pulse Rate 97 05/06/24 19:35 Respiratory Rate 14 05/06/24 19:35 Blood Pressure 177/88 H 05/06/24 19:35 Pulse Oximetry 98 05/06/24 19:35 Oxygen Delivery Room Air 05/06/24 19:35 Lab Data 05/06/24 19:45 05/06/24 19:45 Labs: Lab Results 05/06/24 05/06/24 Range/Units 19:45 22:40 WBC 7.8 (4.5-10.0) K/mm3 RBC 4.44 (4.2-5.4) M/mm3 Hgb 14.2 (12.0-15.0) g/dL Hct 42.8 (37.0-47.0) % MCV 96.4 (80-100) fl MCH 32.0 (26-34) pg MCHC 33.2 (32-36) g/dl RDW 12.9 (11.5-14.5) % Plt Count 198 (150-375) k/mm3 MPV 9.6 (7.4-10.4) fl Immature Gran % (Auto) 0.4 (0-0.5) % Neut % (Auto) 81.7 H (45.5-73.1) % Lymph % (Auto) 10.4 L (18.3-44.2) % [place] % (Auto) 6.0 (2.6-8.5) % Eos % (Auto) 1.2 (0-4.4) % Baso % (Auto) 0.3 (0.2-1.2) % Lymph # (Auto) 0.81 L (0.9-3.2) K/mm3 [place] # (Auto) 0.5 (0.1-0.6) K/mm3 Eos # (Auto) 0.1 (0-0.3) K/mm3 Baso # (Auto) 0.0 (0.0-0.1) K/mm3 Abs Immat Gran (auto) 0.03 (0.00-0.031) K/mm3 Absolute Neuts (auto) 6.4 (1.3-6.7) K/mm3 Absolute Nucleated RBC 0.000 (0.0-0.012) K/mm3 Nucleated RBC % 0.0 (0.0-0.2) % PT 12.8 (11.1-14.7) Seconds INR 0.9 APTT 22.9 (22.3-36.8) Seconds Sodium 136 L (137-145) mmol/L Potassium 4.2 (3.4-5.0) mmol/L Chloride 104 (98-107) mmol/L Carbon Dioxide 24 (22-30) mmol/L Anion Gap 8 (4-12) mmol/L BUN 20 H (7-17) mg/dL Creatinine 0.60 L (0.7-1.0) mg/dL Estim Creat Clear Calc 77 ml/min Estimated GFR > 60 (59 - ) Glucose 295 H (65-110) mg/dL Calcium 9.5 (8.4-10.2) mg/dL Total Bilirubin 0.4 (0.2-1.3) mg/dL AST 21 (14-36) U/L ALT 22 (6-35) U/L Alkaline Phosphatase 76 (38-126) U/L Troponin I < 0.012 < 0.012 (0.000-0.034) ng/mL Total Protein 7.0 (6.3-8.2) g/dL Albumin 4.2 (3.5-5.1) g/dL Lipase 83 (23-300) U/L Influenza A (RT-PCR) Negative (Negative) Influenza B (RT-PCR) Negative (Negative) RSV (RT-PCR) Negative (Negative) SARS-CoV-2 RNA (RT-PCR) Negative (Negative) Discharge Plan Discharge Clinical Impression: Heart palpitations Patient Disposition: Home, Self-Care Condition: Stable Instructions: Antibiotic Form, Heart Palpitations (ED) Patient Language: Micronesian Prescriptions: No Action aspirin [Rachael Low Dose Aspirin] 81 mg tablet,delayed release (DR/EC) 81 mg PO DAILY (DME) FreeStyle Hien 2 Skipwith Misc See Rx Instructions .Route Qty: 1 0RF Rx Instructions: daily biotin 1 mg capsule 1 mg PO DAILY fluconazole [Diflucan] 100 mg tablet 100 mg PO DAILY Qty: 1 1RF metformin 1,000 mg tablet 500 mg PO BID hydrocodone-acetaminophen 5-325 mg tablet 1 tablet PO Q4H PRN (Reason: pain) Qty: 14 0RF cholecalciferol (vitamin D3) 50 mcg (2,000 unit) capsule 50 mcg PO DAILY atorvastatin [Lipitor] 10 mg tablet 10 mg PO QHS Qty: 90 1RF lisinopril 10 mg tablet 10 mg PO DAILY Qty: 90 1RF Jardiance 25 mg tablet 25 mg PO DAILY Qty: 90 1RF (DME) FreeStyle Hien 2 Sensor Kit See Rx Instructions .Route Qty: 6 2RF Rx Instructions: As directed pen needle, diabetic [BD Ultra-Fine Short Pen Needle] 31 gauge x 5/16 needle See Rx Instructions .ROUTE .COMPLEX Qty: 100 2RF Dose Instruction: USE DIRECTED Rx Instructions: Use with Insulin omeprazole 40 mg capsule,delayed release(DR/EC) 40 mg PO DAILY PRN (Reason: for gastroesophageal reflux disease) Qty: 90 1RF insulin glargine 100 unit/mL solution 38 unit SUBCUT DAILY Qty: 30 3RF Rx Instructions: Administer in the morning trazodone 50 mg tablet See Rx Instructions .ROUTE .COMPLEX Qty: 90 1RF Dose Instruction: TAKE 1 TABLET DAILY AT BEDTIME NEEDED FOR INSOMNIA Rx Instructions: TAKE 1 TABLET DAILY AT BEDTIME NEEDED FOR INSOMNIA Follow-up/Referrals: Vandana Langley MANAGER [facility] [Primary Care Provider] - Time of Disposition: 23:52
[2024-05-06 23:57] VITALS: BP 148/74; PULSE 92; RESP 17; O2SAT 96
--- OUTSIDE RECORDS SUMMARY | 2024-05-06 23:58 | XMS_ITS | Encounter Summary ---
Author Organization [facility] Address [address] [facility] [place] [address] Care Team Providers Care Riveter Name Role Phone Unavailable Primary Care Provider Unavailabl e Encounter Details Date Type Department Care Team (Late st Contact Info) Description 03/08/2021 Telephone [facility] 1 DAY ONCOLOGY [address] [place] [address] Claudia Wilson, ROAD HOGGER OPERATOR-ENTERPRISE SERVICES MANAGER [address] [place] [address] Social History Tobacco Use Types [...] of positive COVID-19 test: 03/05/2021 Test Location: [facility] Type of COVID-19 test: rapid test COVID-19 Vaccination Status: N/A PCP:Dr. Nazario Call back number:[phone] Best time to call: Anytime Patient was informed they will be contacted by a [facility] nurse to review inclusion criteria for monoclonal antibody therapy and to discuss scheduling for an infusion within the next 24 hours. STIC SPECIALIST documented in this encounter Plan of Treatment Not on file documented as of this encounter Visit Diagnoses Not on filedocumented in this encounter
--- OUTSIDE RECORDS SUMMARY | 2024-05-06 23:58 | XMS_ITS | Encounter Summary ---
Author Organization [facility] Address [address] [facility] [place] [address] Care Team Providers Care Manager Of Case Management Name Role Phone Unavailable Primary Care Provider Unavailabl e Encounter Details Date Type Department Care Team (Late st Contact Info) Description 02/05/2019 Lab Requisition [facility] DermPath Lab [address] [facility] [place] [address] [place] [address] Social History Tobacco Use Types [...] Comments DERMATOPATHOLOGY Routine 02/03/2019 12:0 0 AM SCAFFOLD BUILDER documented in this encounter Results * DERMATOPATHOLOGY (02/03/2019 12:00 AM SCAFFOLD BUILDER) Case Report Dermatopathology Report Case: [id number] Authorizing Provider: Sesar Ramos MD Collected: 02/03/2019 12:00 AM Ordering Location: [facility] DermPath Lab Received: 02/05/2019 10:34 AM Pathologist: Shey Gray MD Specimen: Skin, above left mid brow 9 1:23 PM SCAFFOLD BUILDER DERMATOPATHOLOGY LABORATORY Final Diagnosis Specimen A. SKIN, above left mid brow: PROMINENT BASILAR PIGMENTATION CONSISTENT WITH SOLAR LENTIGO (L81.4) 1:[address] [facility] DERMATOPATHOLOGY LABORATORY Clinical History R/O lentigo vs dysplastic nevus. 1:[address] [facility] DERMATOPATHOLOGY LABORATORY Gross Description Specimen A: Received is one formalin filled container labeled with the patient's name and designated above left mid brow. The specimen consists of a shave biopsy measuring 8e7k3ro. Jar 0. 1:[address] [facility] DERMATOPATHOLOGY LABORATORY Microscopic Description Specimen A. SKIN, above left mid brow: Sections show prominent pigmentation of the basal layer without a prominent increase in melanocytes. Some of the basilar keratinocytes are slightly enlarged but uniform. The rete ridges are not elongated. 1:[address] [facility] DERMATOPATHOLOGY LABORATORY Disclaimer An external and internal positive and negative controls are appropriate for the histochemical, immunohistochemical and immunofluorescence stain(s) in this case (if any), except where stated explicitly. The performance characteristics of the stain(s) cited in this report were developed and its performance characteristic determined by the Dermatopathology Laboratory at [facility], directed by Dr. Ayah Chavarria. These tests need not be, and therefore are not, approved by the [place] Food and Drug Administration. The tests are used for clinical purposes. Billing Codes Specimen Charges Stain Charges 70017 1 1:[address] [facility] DERMATOPATHOLOGY LABORATORY Embedded Images 1:[address] [facility] DERMATOPATHOLOGY LABORATORY Pathology/Cytolog y TISSUE SPECIMEN FROM SKIN / Unknown 02/03/2019 02/05/2019 10:34 AM SCAFFOLD BUILDER Sesar Ramos MD LAB - PATHOLOGY/CYTO LOGY ORDERABLES DERMATOPATHOLOGY LABORATORY [facility] - Department of Dermatology [address] [place] [address], 5th [place] [address], [facility] [phone] documented in this encounter Visit Diagnoses Not on filedocumented in this encounter
--- OUTSIDE RECORDS SUMMARY | 2024-05-06 23:58 | XMS_ITS | Encounter Summary ---
Author Organization [facility] Address [address] [place] [address] Care Team Providers Care Mortgage Broker Name Role Phone Conrad Rodriguez MD Primary Care Provider Encounter Details Date Type Department Care Team ([facility] Contact Info) Description 04/29/2024 Telephone [facility] Medical Group Cardiology [address] [place] [address] Pasha Marmolejo MD [address] [place] [address] Social History Tobacco Use Types Packs/Day [...] on file Legal Sex Female 1:04 AM SCALLOP CUTTER Gender Identity Not on file Sexual Orientation Not on file documented as of this encounter Miscellaneous Notes * Telephone Encounter - Shauna Lester MA - 04/29/2024 4:30 PM CST Patient notified to D/C monitor and send it back to [employer]. Patient voiced understanding. LOP CUTTER * Telephone Encounter - Flaquita Leggett MA - 04/29/2024 3:[address] Marmolejo, Can pt stop wearing monitor? Please advise. LOP CUTTER * Telephone Encounter - Shante Zhu - 04/29/2024 3:22 PM CST Pt states the sensitive adhesive patches are still irritating her skin. States there is probably only 2 weeks worth of data. She has taken the monitor off and wants to know what she should do. Pleaseadvise, thank you. Contact: LOP CUTTER documented in this encounter Plan of Treatment Not on file documented as of this encounter Visit Diagnoses Not on filedocumented in this encounter Care Teams Mortgage Broker Relationship Specialty Start Date End Date Conrad Rodriguez MD PCP - General Family Practice 03/28/21 documented as of this encounter
--- OUTSIDE RECORDS SUMMARY | 2024-05-06 23:58 | XMS_ITS | Encounter Summary ---
Author Organization [facility] Address [address] [facility] [place] [address] Care Team Providers Care Skidder Name Role Phone Unavailable Primary Care Provider Unavailabl e Encounter Details Date Type Department Care Team (Late st Contact Info) Description 12/02/2019 Lab Requisition [facility] [address] [facility] [place] [address] Sesar Ramos [place] [address] Social History Tobacco Use Types [...] AM CDT) Case Report Dermatopathology Report Case: [id number] Authorizing Provider: Sesar Ramos MD Collected: 12/01/2019 [...] specimen consists of a shave biopsy measuring 2x7a3ux. Jar 0. Specimen B: Received is one formalin filled container labeled with the patient's name and designated right little toe. The specimen consists of a shave biopsy measuring 2w0x2fx. Jar 0. 0 2:57 PM [facility] DERMATOPATHOLOGY LABORATORY Microscopic Description Specimen A. SKIN, [...] superficial perivascular lymphohistiocytic infiltrate. 0 2:57 PM [facility] DERMATOPATHOLOGY LABORATORY Disclaimer An external and internal positive and negative controls are appropriate for the histochemical, immunohistochemical and immunofluorescence stain(s) in this case (if any), except where stated explicitly. The performance characteristics of the stain(s) cited in this report were developed and its performance characteristic determined by the Dermatopathology Laboratory at [facility], directed by Dr. Ayah Chavarria. These tests need not be, and therefore are not, approved by the [place] Food and Drug Administration. The tests are used for clinical purposes. Billing Codes Specimen Charges Stain Charges 43749 33888 1 1 0 2:57 PM CDT DERMATOPATHOLOGY LABORATORY Embedded Images 0 2:57 PM [facility]T DERMATOPATHOLOGY LABORATORY Pathology/Cytology TISSUE SPECIMEN FROM SKIN / Unknown 12/01/2019 12/02/2019 11:38 AM CDT Miscellaneous samples (specimen) TISSUE SPECIMEN FROM SKIN / Unknown 12/01/2019 12/02/2019 11:38 AM CDT Sesar Ramos MD LAB - PATHOLOGY/CYTO LOGY ORDERABLES DERMATOPATHOLOGY LABORATORY [facility] - Department of Dermatology [address], [address] [phone] documented in this encounter Visit Diagnoses Not on filedocumented in this encounter
--- OUTSIDE RECORDS SUMMARY | 2024-05-06 23:58 | XMS_ITS | Referral Summary ---
Author Organization [facility] Address [address] [place] [address] Care Team Providers Care Entrance Guard Name Role Phone Unavailable Primary Care Provider Unavailabl e Source Comments [facility],non-owned Affiliates and Associated Physician Practices is amultiple site organization consisting of ambulatory clinics and hospital sitesin [place], [place], [place] and [place]. This disclosure is being madepursuant to the Care Everywhere program and may not contain all information available regarding this patient. Last updated 17.[facility] Allergies Active Allergy Reactions Criticality Noted Date [...]
--- OUTSIDE RECORDS SUMMARY | 2024-05-06 23:58 | XMS_ITS | Patient Health Summary ---
Author Organization [facility] Address [address] [facility] [place] [address] Care Team Providers Care Corporate Development Intern Name Role Phone Unavailable Primary Care Provider Unavailabl e Note from [facility],non-owned Affiliates and Associated Physician Practices is amultiple site organization consisting of ambulatory clinics and hospital sitesin [place], [place], [place] and [place]. This disclosure is being madepursuant to the Care Everywhere program and may not contain all information available regarding this patient. Last updated 17.[facility] Allergies * Augmentin * Erythromycin(Sensitivity /gi upset) [...] is included. Case Report Dermatopathology Report Case: [id number] Authorizing Provider: Sesar Ramos MD Collected: 12/01/2019 12:00 AM Ordering Location: [facility] DermPath Lab Received: 12/02/2019 11:38 AM [...] specimen consists of a shave biopsy measuring 6a9w0xm. Jar 0. Specimen B: Received is one formalin filled container labeled with the patient's name and designated right little toe. The specimen consists of a shave biopsy measuring 4c9z8rd. Jar 0. 0 2:57 PM T DERMATOPATHOLOGY [...] characteristic determined by the Dermatopathology Laboratory at [facility], directed by Dr. Ayah Chavarria. These tests need not be, and therefore are not, approved by the [place] Food and Drug Administration. The tests are used for clinical purposes. Billing Codes Specimen Charges Stain Charges 38523 48290 1 1 0 2:57 PM CDT DERMATOPATHOLOGY LABORATORY Embedded Images 0 2:57 PM CDT DERMATOPATHOLOGY LABORATORY Pathology/Cytology TISSUE SPECIMEN FROM SKIN / Unknown 12/01/2019 12/02/2019 11:38 AM CDT Miscellaneous samples (specimen) TISSUE SPECIMEN FROM SKIN / Unknown 12/01/2019 12/02/2019 11:38 AM CDT Sesar Ramos MD LAB - PATHOLOGY/CYTO LOGY ORDERABLES DERMATOPATHOLOGY LABORATORY [facility] - Department of Dermatology [address], [address] [phone] * PAIN MANAGEMENT PROCEDURE TIME (06/29/2013 1:08 [...] on how to reach the clinic or cushion builder physician at anytime for questions or complaints. [...] on how to reach the clinic or cushion builder physician at anytime for questions or complaints. Shaun Billings MD DIAGNOSTIC JESSICAIN G ORDERABLES
--- OUTSIDE RECORDS SUMMARY | 2024-05-06 23:58 | XMS_ITS | Clinical Summary ---
Author Organization [facility] Address [address] [place] [address] Phone Care Team Providers Care Generator Operator Straight Bevel Gear Name Role Phone Floyd Gamez MD Primary [...] Care: Floyd Gamez MD Referring Provider: Floyd Gamez [address] [facility] 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
--- OUTSIDE RECORDS SUMMARY | 2024-05-06 23:58 | XMS_ITS | Clinical Summary ---
Author Organization [facility] [employer] [facility] Address [address] [place] [address] Care Team Providers Care Eligibility Worker Name Role Phone Unavailable Primary Care Provider Unavailabl e Source Comments [facility] [employer] [facility],non-owned Affiliates and Associated Physician Practices is amultiple site organization consisting of ambulatory clinics and hospital sitesin [place], [place], [place] and [place]. This disclosure is being madepursuant to the Care Everywhere program and may not contain all information available regarding this patient. Last updated 17.[facility] [employer] Allergies Active Allergy Reactions Criticality Noted Date [...]
--- OUTSIDE RECORDS SUMMARY | 2024-05-06 23:58 | XMS_ITS | Continuity of Care Document ---
Author Organization [facility] Address [address] [place] [address] Phone Care Team Providers Care Seat Maker Name Role Phone Unavailable Unavailable Unavailable Advance Directives Directive Yes / No Effective Date File Name No Information Encounters Encounter Description Practice Location Reason(s) For Visit Diagnoses Date Provider Providers Copied on Encounter [facility], [address], [place], [place], [id number] , [place] tel:[phone] [facility] CERVICAL DISC DISPLACMNTLUMBAR DISC DISPLACEMENT 200 7 No Information Family History Family Member Type Diagnosis Age At Onset No Information Payers Payer name Insurance type Covered republican ID Authoriza tion(s) No Information Social History [...]
--- OUTSIDE RECORDS SUMMARY | 2024-05-06 23:59 | XMS_ITS | Referral Summary ---
Author Organization [facility] Address [address] [address] Care Team Providers Care Mastic Man Name Role Phone Conrad Rodriguez MD Primary Care Provider Encounters Date Type Department Care Team Description 04/29/2024 Telephone [facility] Medical [facility] Cardiology [address] [place] [address] [place] [phone] Pasha Marmolejo MD 04/23/2024 Telephone [facility] Cardiology [address] [place] [address] [place] [phone] Flaquita Leggett MA Rash due to ekg monitor 04/08/2024 Orders Only [facility] Medical [facility] Cardiology [address] [place] [phone] ProviderPonce MD 04/08/2024 2:30 PM MEDICAL BILLING ASSOCIATE Ancillary Procedure [facility] Cardiology [address] [place] [phone] Palpitations 04/08/2024 3:15 PM MEDICAL BILLING ASSOCIATE Office Visit [facility] Cardiology [address] [place] [phone] Pasha Marmolejo MD Palpitations (Primary Dx); [...] ORALIndications:he alth Take 50 mg by mouth commercial crabber before breakfast Active clobetasol (TEMOVATE) 0.05 % [...] ued(Patie nt Reported) flash glucose scanning reader (alive.cn Hein 14 Day [place]) misc every 14 (fourteen) days 025 Discontin [...] (07/11/2021): Added automatically from request for surgery [id number] Guyon syndrome, 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 Overview (07/11/2021): Added automatically from request for surgery [id number] Essential hypertension 09/26/2020 Hyperlipidemia 09/26/2020 KEVIN on CPAP 09/26/2020 Type 2 diabetes mellitus 09/26/2020 Biceps tendinitis of right upper extremity 09/18 Overview (09/18/2020): Added automatically from request for surgery [id number] Glycosuria 04/29/2019 Lateral epicondylitis of left elbow 08/19/2018 Overview (08/19/2018): Added automatically from request for surgery [id number] Cyst of ovary 05/14/2018 Smoker 11/14/2017 Menopause [...] on file Legal Sex Female 1:04 AM MEDICAL BILLING ASSOCIATE Gender Identity Not on file Sexual Orientation Not on file Last Filed Vital Signs Vital Sign Reading Time Taken Comments Blood Pressure 142/64 04/08/2024 3:23 PM MEDICAL BILLING ASSOCIATE Pulse 84 04/08/2024 3:23 PM MEDICAL BILLING ASSOCIATE Temperature 36.7 C (98.1 F) 08/19/2022 3:16 PM CDT Respiratory Rate 18 08/19/2022 3:50 PM CDT Oxygen Saturation 96% 04/08/2024 3:23 PM MEDICAL BILLING ASSOCIATE Inhaled Oxygen Concentration - - Weight 66.2 kg (146 lb) 04/08/2024 3:23 PM MEDICAL BILLING ASSOCIATE Height 158.8 cm (5' 2.5 ) 04/08/2024 3:23 PM MEDICAL BILLING ASSOCIATE Body Mass Index 26.28 04/08/2024 3:23 PM MEDICAL BILLING ASSOCIATE Plan of Treatment Not on file Medical Devices Implanted Type Area Knurling Machine Operator Device Identifier Shelf Expiration Date Model / Serial / Lot Free Stle Hien N/A: Arm Description:Free style hien [employer] Ar-3670 Set Implant [employer]rex Fibertak Biceps Sterile Latex Free - [id number] Implanted:Qty: 1 on 09/28/2020 by Enoc Cullen MD at [facility] Right: Shoulder [employer] 07/31/2025 AR-3670 / / [id number] [employer] Ar-2324 Bcm Swivelock 4.75mm 24.5mm Self Punch Vent Shoulder [place] Suture - [id number] Implanted:Qty: 1 on 09/28/2020 by Enoc Cullen MD at [facility] Right: Shoulder [employer] 05/31/2024 AR-2324BC M / / [id number] [employer] Swivelock C 4.75mm 19.1mm Closed Eyelet Vent [place] Suture Ar-2324bcc - [id number] Implanted:Qty: 1 on 08/19/2022 by Levar Morris MD at [facility] Right: Shoulder [employer] [id number] 05/31/2026 AR-2324BC C / / [id number] [employer] Swivelock C 4.75mm 19.1mm Closed Eyelet Vent [place] Suture Ar-2324bcc - [id number] Implanted:Qty: 1 on 08/19/2022 by Levar Morris MD at [facility] Right: Shoulder [employer] [id number] 05/31/2026 AR-2324BC C / / [id number] [employer] Arthrex Fibertak Tape 3 Load Rotator Cuff [place] Suture Sterile Latex Free Ar-3633 - [id number] Implanted:Qty: 1 on 08/19/2022 by Levar Morris MD at [facility] Right: Shoulder [employer] 03/02/2027 AR-3633 / / [id number] Procedures Procedure Name Priority Date/Time Associated Diagnosis Comments ELECTROCARDIOGRAM REPORT Routine 025 4:06 PM MEDICAL BILLING ASSOCIATE Palpitations Essential hypertension MCT - MOBILE CARDIAC TELEMETRY EVENT MONITOR Routine 04/08/2024 4:03 PM MEDICAL BILLING ASSOCIATE Palpitations LIPID PANEL Routine 04/03/2024 4:10 PM MEDICAL BILLING ASSOCIATE from Last 3 Months Results * Electrocardiogram Report (04/08/2024 4:06 PM MEDICAL BILLING ASSOCIATE) Pasha Marmolejo MD ECG ORDERABLES Final R esult * MCT Mobile Cardiac Telemetry Event Monitor (04/08/2024 4:03 PM MEDICAL BILLING ASSOCIATE) Anatomical Region Laterality Modality Electrocardiogra phy Narrative 05/06/2024 3:31 PM MEDICAL BILLING ASSOCIATE Images from the original result were not included. AMBULATORY CHEMICAL APPLICATOR REPORT Patient Name: Kae Escoto Date of : 1960 Requesting Physician: Pasha Marmolejo M.D. Date of Interpretation: 05/06/24 Type of Monitor: 30 Day Mobile Cardiac Outpatient Therapeutic Massage Technician Date of the Study / Enrollment Period: [...] PVCs. No significant arrhythmias. Pasha Marmolejo M.D., [facility] 05/06/24 Pasha Marmolejo MD CV CARDIAC SERVICES PRO CEDURES Final Result * Lipid panel (04/03/2024 4:10 PM MEDICAL BILLING ASSOCIATE) SCRIBED Cholesterol, Total 119 <200 [facility] SCRIBED HDL 52 >40 [facility] SCRIBED LDL 54 <100 [facility] SCRIBED Triglycerides 61 <150 [facility] Blood Historical Provider LAB BLOOD ORDERABLES Edit ed Result - Final [facility] from Last 3 Months Insurance [facility] CHOICE PLUS [facility] CHOICE PLUS [facility] CHOICE PLUS [employer] [address] [place] [address] WORKERS COMPENSATION GENERIC Care Teams Mastic Man Relationship Specialty Start Date End Date Conrad Rodriguez MD PCP - General Family Practice 03/28/21
--- OUTSIDE RECORDS SUMMARY | 2024-05-06 23:59 | XMS_ITS | Clinical Summary ---
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 Overview (07/11/2021): Added automatically from request for surgery [id number] Essential hypertension 09/26/2020 Hyperlipidemia 09/26/2020 KEVIN on CPAP 09/26/2020 Type 2 diabetes mellitus 09/26/2020 Biceps tendinitis of right upper extremity 09/18 Overview (09/18/2020): Added automatically from request for surgery [id number] Glycosuria 04/29/2019 Lateral epicondylitis of left elbow 08/19/2018 Overview (08/19/2018): Added automatically from request for surgery [id number] Cyst of ovary 05/14/2018 Smoker 11/14/2017 Menopause [...] Type Department Care Team Description 04/29/2024 Telephone [facility] Cardiology [address] [facility] [address] [place] [address] [phone] Pasha Marmolejo MD 04/23/2024 Telephone [facility] Cardiology [address] [place] [address] [address] [place] [address] [phone] Flaquita Leggett MA Rash due to front desk monitor 04/08/2024 3:15 PM TARIFF COMPILING CLERK Office Visit [facility] Cardiology [address] [place] [address] [place] [address] [phone] Pasha Marmolejo MD Palpitations (Primary Dx); Essential hypertension; Mixed hyperlipidemia 04/08/2024 2:30 PM TARIFF COMPILING CLERK Ancillary Procedure [facility] Cardiology [address] [place] [address] [place] [address] [phone] Palpitations 04/08/2024 Orders Only [address] [place] [address] [phone] Provider, MD Ponce from Last 3 Months [...] on file Legal Sex Female 1:04 AM TARIFF COMPILING CLERK Gender Identity Not on file Sexual Orientation Not on file Obstetrics History Para Term AB IAB SAB Ectopic Multiple Livin g Live Births 3 2 Date Outcome GA Total Labor Labor/2nd/3rd Weight Sex Type Anes PTL Caron A1 A5 Name Clin Para Para Last Filed Vital Signs Vital Sign Reading Time Taken Comments Blood Pressure 142/64 04/08/2024 3:23 PM TARIFF COMPILING CLERK Pulse 84 04/08/2024 3:23 PM TARIFF COMPILING CLERK Temperature 36.7 C (98.1 F) 08/19/2022 3:16 PM CDT Respiratory Rate 18 08/19/2022 3:50 PM CDT Oxygen Saturation 96% 04/08/2024 3:23 PM TARIFF COMPILING CLERK Inhaled Oxygen Concentration - - Weight 66.2 kg (146 lb) 04/08/2024 3:23 PM TARIFF COMPILING CLERK Height 158.8 cm (5' 2.5 ) 04/08/2024 3:23 PM TARIFF COMPILING CLERK Body Mass Index 26.28 04/08/2024 3:23 PM TARIFF COMPILING CLERK Plan of Treatment Health Maintenance Due Date [...] 04/03/2025 04/03/2024 Medical Devices Implanted Type Area Immigration Lawyer Device Identifier Shelf Expiration Date Model / Serial / Lot Free Stle Hien N/A: Arm Description:Free style hien [employer] Ar-3670 Set Implant Arthrex Fibertak Biceps Sterile Latex Free - [id number] Implanted:Qty: 1 on 09/28/2020 by Enoc Cullen MD at [facility] Right: Shoulder [employer] 07/31/2025 AR-3670 / / [id number] [employer] Ar-2324 Bcm Swivelock 4.75mm 24.5mm Self Punch Vent Shoulder Zelienople Suture - [id number] Implanted:Qty: 1 on 09/28/2020 by Enoc Cullen MD at [facility] Right: Shoulder [employer] 05/31/2024 AR-2324BC M / / [id number] [employer] Swivelock C 4.75mm 19.1mm Closed Eyelet Vent Zelienople Suture Ar-2324bcc - [id number] Implanted:Qty: 1 on 08/19/2022 by Levar Morris MD at [facility] Right: Shoulder [employer] [id number] 05/31/2026 AR-2324BC C / / [id number] [employer] Swivelock C 4.75mm 19.1mm Closed Eyelet Vent Zelienople Suture Ar-2324bcc - [id number] Implanted:Qty: 1 on 08/19/2022 by Levar Morris MD at [facility] Right: Shoulder [employer] [id number] 05/31/2026 AR-2324BC C / / [id number] [employer] Arthrex Fibertak Tape 3 Load Rotator Cuff Zelienople Suture Sterile Latex Free Ar-3633 - [id number] Implanted:Qty: 1 on 08/19/2022 by Levar Morris MD at [facility] Right: Shoulder [employer] 03/02/2027 AR-3633 / / [id number] Procedures Procedure Name Priority Date/Time Associated Diagnosis Comments ELECTROCARDIOGRAM REPORT Routine 025 4:06 PM TARIFF COMPILING CLERK Palpitations Essential hypertension MCT - MOBILE CARDIAC TELEMETRY EVENT MONITOR Routine 04/08/2024 4:03 PM TARIFF COMPILING CLERK Palpitations LIPID PANEL Routine 04/03/2024 4:10 PM TARIFF COMPILING CLERK from Last 3 Months Results * Electrocardiogram Report (04/08/2024 4:06 PM TARIFF COMPILING CLERK) Pasha Marmolejo MD ECG ORDERABLES Final R esult * MCT Mobile Cardiac Telemetry Event Monitor (04/08/2024 4:03 PM TARIFF COMPILING CLERK) Anatomical Region Laterality Modality Electrocardiogra phy Narrative 05/06/2024 3:31 PM TARIFF COMPILING CLERK Images from the original result were not included. AMBULATORY TIMBER SIZER REPORT Patient Name: Kae Escoto Date of : 1960 Requesting Physician: Pasha Marmolejo M.D. Date of Interpretation: 05/06/24 Type of Monitor: 30 Day Mobile Cardiac Outpatient Senior Clinical Project Manager Date of the Study / Enrollment Period: [...] PVCs. No significant arrhythmias. Pasha Marmolejo M.D., [facility] 05/06/24 Pasha Marmolejo MD [facility] PRO CEDURES Final Result * Lipid panel (04/03/2024 4:10 PM TARIFF COMPILING CLERK) SCRIBED Cholesterol, Total 119 <200 [facility] SCRIBED HDL 52 >40 [facility] SCRIBED LDL 54 <100 [facility] SCRIBED Triglycerides 61 <150 [facility] Blood Historical Provider LAB BLOOD ORDERABLES Edit ed Result - Final [facility] from Last 3 Months Insurance [facility] CHOICE PLUS [facility] CHOICE PLUS [facility] CHOICE PLUS WORKERS COMPENSATION [place] [address] [place] [address] [phone] [place] [address] WORKERS COMPENSATION GENERIC Care Teams Cupola Tapper Relationship Specialty Start Date End Date Conrad Rodriguez MD PCP - General Family Practice 03/28/21
[2024-05-07 00:45] VITALS: BP 139/67; PULSE 96; RESP 16; O2SAT 95
== END 2024-05-07 00:47 | disposition home or self-care (01) ==
LOC: ANHED 23:56
PROVIDERS: Emergency Provider Emergency Medicine; PCP Internal Medicine
DX: R00.2 Palpitations (principal); Z20.822 Contact with and (suspected) exposure to COVID-19; J43.9 Emphysema, unspecified; I10 Essential (primary) hypertension; E55.9 Vitamin D deficiency, unspecified; E11.9 Type 2 diabetes mellitus without complications; E78.49 Other hyperlipidemia; L40.0 Psoriasis vulgaris; K21.9 Gastro-esophageal reflux disease without esophagitis; M19.90 Unspecified osteoarthritis, unspecified site; G47.33 Obstructive sleep apnea (adult) (pediatric); F17.210 Nicotine dependence, cigarettes, uncomplicated; Z90.721 Acquired absence of ovaries, unilateral; Z96.652 Presence of left artificial knee joint; Z79.82 Long term (current) use of aspirin; Z79.84 Long term (current) use of oral hypoglycemic drugs; Z79.4 Long term (current) use of insulin; Z79.899 Other long term (current) drug therapy
CPT/HCPCS: 36415; 71046; 80053; 83690; 84484; 85025; 85610; 85730; 87637; 93005; 99284

== ENCOUNTER 2025-02-21 15:01 | Outpatient (CLI) | payer OTHER, SELFPAY ==
--- NOTE | ~2025-02-21 | MM_ITS ---
EXAMINATION: MM screening [facility] BI w [facility] HISTORY: Screening. TECHNIQUE: Craniocaudal and mediolateral oblique 3-D tomosynthesis images were obtained and synthetic 2-D images were generated. CAD analysis was submitted and interpreted. COMPARISON: 2022, 2021, and 2019 BREAST PARENCHYMAL COMPOSITION: Not Dense: There are scattered areas of fibroglandular tissue. FINDINGS: No suspicious masses are seen. There are no suspicious calcifications. No unexplained architectural distortion is seen. There are no skin or nipple abnormalities identified. There is no adenopathy seen on the images submitted. IMPRESSION: No mammographic evidence to suggest malignancy is seen. The patient may return to screening mammography as per ACR guidelines. BI-RADS 1 - Negative. Reviewed, dictated and finalized at location A. ON COLLECTION CLERK
--- OUTSIDE RECORDS SUMMARY | 2025-02-21 16:42 | XMS_ITS | Clinical Summary ---
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 Gender Identity Not on file Sexual [...] 12:19 PM CDT Height 158.8 cm (5' 2.5) 09/25/2009 12:19 PM CD T Body Mass Index 26.64 09/25/2009 12:19 PM CDT Plan of Treatment Health Maintenance Due Date Last Done Comments DTAP/TDAP/TD VACCINES (1 - Tdap) 1981 HPV/Cotest (21-29) 05/22/1983 CERVICAL CANCER SCREENING 1992 HPV/Cotest (30-65) 1992 PAP SMEAR 1992 COLORECTAL SCREENING 05/22/2007 Colorectal Cancer Screening 05/22/2007 FIT-DNA Q 3 years 05/22/2007 FIT/FOBT Q 1 year 05/22/2007 Flex Sig/CT Colonography Q 5 years 05/22/2007 BREAST CANCER SCREENING 09/25/2010 09/26/19 10, 06/04/2006, 11/13/2005, Additional history exists ZOSTER VACCINE (1 of 2) 2012 INFLUENZA VACCINE (#1) 2024 RSV VACCINE (60+ or ) (1 - [...] Most Recently Relevant to Health Maintenance Insurance [facility] [employer] PPO [id number] Care Teams Multimedia Journalist Relationship Specialty Start Date End Date Floyd Gamez MD PCP - General Family Practice 09/25/09
--- OUTSIDE RECORDS SUMMARY | 2025-02-21 16:42 | XMS_ITS | Encounter Summary ---
Author Organization [facility] Address [address] [place] [address] Care Team Providers Care Surgical Coder Name Role Phone Unavailable Primary Care Provider Unavailabl e Encounter Details Date Type Department Care Team (Late st Contact Info) Description 03/08/2021 Telephone [facility] 1 DAY ONCOLOGY [address] [place] [address] Claudia Wilson, RESPOOLER-PARLIAMENTARY COUNSEL [address] [place] [address] Social History Tobacco Use Types Packs/Day Years Used Date Smoking Tobacco: Every Day Cigarettes 0.8 30 Smokeless Tobacco: Never Alcohol Use Standard Drinks/Week Comments Yes 5 (1 standard drink = 0.6 oz pur e alcohol) Comments Unknown Sex and Gender Information Value Date Recorded Sex Assigned at Not on file Legal Sex Female 5:49 AM PREDICTIVE MAINTENANCE SPECIALIST Gender Identity Not on file Sexual Orientation Not on file 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 Patient verified the following information: Date of COVID-19 symptom onset: 03/03/2021 Date of positive COVID-19 test: 03/05/2021 [place] [facility] [place] of COVID-19 test: rapid test COVID-19 Vaccination Status: N/A PCP:Dr. Nazario Call back number:[phone] Best time to call: Anytime Patient was informed they will be contacted by a [facility] nurse to review inclusion criteria for monoclonal antibody therapy and to discuss scheduling for an infusion within the next 24 hours. ICTIVE MAINTENANCE SPECIALIST documented in this encounter Plan of Treatment Not on file documented as of this encounter Visit Diagnoses Not on filedocumented in this encounter
--- OUTSIDE RECORDS SUMMARY | 2025-02-21 16:42 | XMS_ITS | Encounter Summary ---
Author Organization [facility] Address [address] [facility] [place] [address] Care Team Providers Care It Applications Developer Name Role Phone Unavailable Primary Care Provider Unavailabl e Encounter Details Date Type Department Care Team (Late st Contact Info) Description 02/05/2019 Lab Requisition [facility] [address] [facility] [place] [address] [place] [address] Social History Tobacco Use Types Packs/Day Years Used Date Smoking Tobacco: Every Day Cigarettes 0.8 30 Smokeless Tobacco: Never Alcohol Use Standard Drinks/Week Comments Yes 5 (1 standard drink = 0.6 oz pur e alcohol) Comments Unknown Sex and Gender Information Value Date Recorded Sex Assigned at Not on file Legal Sex Female 5:49 AM 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 SERVICEMAN Gender Identity Not on file Sexual Orientation Not on file 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 Not on file Not on file documented as of this encounter Plan of Treatment Not on file documented as of this encounter Procedures Procedure Name Priority Date/Time Associated Diagnosis Comments DERMATOPATHOLOGY Routine 02/03/2019 12:0 0 AM TANKER SERVICEMAN documented in this encounter Results * DERMATOPATHOLOGY (02/03/2019 12:00 AM TANKER SERVICEMAN) Case Report Dermatopathology Report Case: [id number] Authorizing Provider: Sesar Ramos MD Collected: 02/03/2019 12:00 AM Ordering Location: [facility] Received: 02/05/2019 10:34 AM Pathologist: Shey Gray MD Specimen: Skin, above left mid brow 1:23 PM [facility] DERMATOPATHOLOGY LABORATORY Final Diagnosis Specimen A. SKIN, above left mid brow: PROMINENT BASILAR PIGMENTATION CONSISTENT WITH SOLAR LENTIGO (L81.4) 1:23 PM [facility] DERMATOPATHOLOGY LABORATORY at [address] TANKER SERVICEMAN Clinical History R/O lentigo vs dysplastic nevus. 1:23 PM [facility] DERMATOPATHOLOGY LABORATORY Gross Description Specimen A: Received is one formalin filled container labeled with the patient's name and designated above left mid brow. The specimen consists of a shave biopsy measuring [id number]. Jar 0. 1:23 PM [facility] DERMATOPATHOLOGY LABORATORY Microscopic Description Specimen A. SKIN, above left mid brow: Sections show prominent pigmentation of the basal layer without a prominent increase in melanocytes. Some of the basilar keratinocytes are slightly enlarged but uniform. The rete ridges are not elongated. 1:23 PM [facility] DERMATOPATHOLOGY LABORATORY Disclaimer An external and internal positive and negative controls are appropriate for the histochemical, immunohistochemical and immunofluorescence stain(s) in this case (if any), except where stated explicitly. The performance characteristics of the stain(s) cited in this report were developed and its performance characteristic determined by the Dermatopathology Laboratory at [facility], directed by Dr. Ayah Chavarria. These tests need not be, and therefore are not, approved by the [place] Food and Drug Administration. The tests are used for clinical purposes. Billing Codes Specimen Charges Stain Charges 21057 1 1:23 PM [facility] DERMATOPATHOLOGY LABORATORY Embedded Images 1:23 PM [facility] DERMATOPATHOLOGY LABORATORY Pathology/Cytolog y TISSUE SPECIMEN FROM SKIN / Unknown 02/03/2019 02/05/2019 10:34 AM [facility] Sesar Ramos MD LAB - PATHOLOGY/CYTOLOGY ORD ERABLES Final Result DERMATOPATHOLOGY LABORATORY [facility] - Department of Dermatology [address] [place] [address] 5th Floor Lab [place], [place] [address] [place] [address] documented in this encounter Visit Diagnoses Not on filedocumented in this encounter
--- OUTSIDE RECORDS SUMMARY | 2025-02-21 16:42 | XMS_ITS | Clinical Summary ---
Author Organization [facility] Address [address] [place] [address] Care Team Providers Care Ground Operations Crew Member Name Role Phone Unavailable Primary Care Provider Unavailabl e Source Comments [facility],non-owned Affiliates and Associated Physician Practices is amultiple site organization consisting of ambulatory clinics and hospital sitesin [place], [place], [place] and [place]. This disclosure is being madepursuant to the Care Everywhere program and may not contain all information available regarding this patient. Last updated 17.[facility] Allergies Active Allergy Reactions Criticality Noted Date Comments Augmentin 06/29/2013 Erythromycin 06/29/2013 Sensitivity /gi upset Medications * Be aware that medications may not be up to date on this document. Alwaysverify current medications with the patient. metFORMIN (GLUCOPHAGE) 500 MG tablet Take 2 Tabs by mouth once daily. Active metoprolol tartrate IR (LOPRESSOR) 50 MG tablet Take 1 Tab by mouth once daily. Active insulin glargine (LANTUS) injection 200 Units at bedtime. Active aspirin 81 MG tablet Take 1 Tab by mouth once daily. Active Immunizations Immunization Administration Dates Next Due INFLUENZA VACCINE, QUADR. 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 Gender Identity Not on file Sexual Orientation [...] 12:43 PM CDT Height 157.5 cm (5' 2) 06/29/2013 12:43 PM CDT Body Mass Index [...] SCREENING 1960 LIPID TESTING 1960 MAMMOGRAM 1960 HIV SCREENING 1977 HEPATITIS C SCREENING 05/16/1980 DTAP/TDAP/TD VACCINES (1 - Tdap) 1981 PNEUMOCOCCAL VACCINE 50+ (1 of 2 - PCV) 1981 PAP SMEAR 05/22/1983 ZOSTER VACCINE (1 of 2) 2012 DEPRESSION SCREENING 03/03/2024 COVID-19 VACCINE (1 - 2024- season) 2024 INFLUENZA VACCINE (#1) 2024 0, 01/03/2018, 02/03/2017, Additional history exists Respiratory Syncytial Virus (RSV) Vaccine Pt: or [...] complete this topic MENINGOCOCCAL (Group B) VACCINE SHARED DECISION-MAKING Aged Out No longer eligible based on patient's age to complete this topic MENINGOCOCCAL GROUPS A/C/Y/W VACCINE Aged Out No longer eligible based on patient's age to complete this topic Insurance [facility] SELF PAY NO INSURANCE Member Subscriber Plan / Payer (Ef fective for All Dates) Name:Kae Escoto Member ID:Not on file Relation to Subscriber:Not on file Name:KAE ESCOTO Subscriber ID:Not on file (Home) Address: [address] [place] [address] Payer ID:Not on file Group ID:Not on file Type:Self Pay Address: [place], [place] [facility]
--- OUTSIDE RECORDS SUMMARY | 2025-02-21 16:42 | XMS_ITS | Encounter Summary ---
Author Organization [facility] Address [address] [place] [address] Care Team Providers Care Community Assistant Name Role Phone Unavailable Primary Care Provider Unavailabl e Encounter Details Date Type Department Care Team (Late st Contact Info) Description 12/02/2019 Lab Requisition [facility] [address] [facility] [place] [address] Sesar Ramos MD [address] [place] [address] Social History Tobacco Use Types Packs/Day Years Used Date Smoking Tobacco: Every Day Cigarettes 0.8 30 Smokeless Tobacco: Never Alcohol Use Standard Drinks/Week Comments Yes 5 (1 standard drink = 0.6 oz pur e alcohol) Comments Unknown Sex and Gender Information Value Date Recorded Sex Assigned at Not on file Legal Sex Female 5:49 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 B: R/O BCC. 0 2:57 PM CDT DERMATOPATHOLOGY LABORATORY Gross Description Specimen A: Received is one formalin filled container labeled with the patient's name and designated left upper back. The specimen consists of a shave biopsy measuring [id number]. Jar 0. Specimen B: Received is one formalin filled container labeled with the patient's name and designated right little toe. The specimen consists of a shave biopsy measuring [id number]. Jar 0. 0 2:57 PM CDT DERMATOPATHOLOGY [...] associated with a superficial perivascular lymphohistiocytic infiltrate. 10/06/202 0 2:57 PM CDT DERMATOPATHOLOGY LABORATORY Disclaimer An external and internal positive and negative controls are appropriate for the histochemical, immunohistochemical and immunofluorescence stain(s) in this case (if any), except where stated explicitly. The performance characteristics of the stain(s) cited in this report were developed and its performance characteristic determined by the Dermatopathology Laboratory at [facility], directed by Dr. Ayah Chavarria. These tests need not be, and therefore are not, approved by the [place] Food and Drug Administration. The tests are used for clinical purposes. Billing Codes Specimen Charges Stain Charges 71772 43313 1 1 0 2:57 PM CDT DERMATOPATHOLOGY LABORATORY Embedded Images 0 2:57 PM CDT DERMATOPATHOLOGY LABORATORY Pathology/Cytology TISSUE SPECIMEN FROM SKIN / Unknown 12/01/2019 12/02/2019 11:38 AM CDT Miscellaneous samples (specimen) TISSUE SPECIMEN FROM SKIN / Unknown 12/01/2019 12/02/2019 11:38 AM CDT us Sesar Ramos MD LAB - PATHOLOGY/CYTOLOGY ORD ERABLES Edited Result - Final DERMATOPATHOLOGY LABORATORY [facility] - Department of Dermatology [address], [address] [phone] documented in this encounter Visit Diagnoses Not on filedocumented in this encounter
--- OUTSIDE RECORDS SUMMARY | 2025-02-21 16:43 | XMS_ITS | Clinical Summary ---
Author Organization [facility] Address [address] [address] Care Team Providers Care Well Drill Operator Cable Tool Name Role Phone Vandana Langley OFFBEARER Primary Care Provider [phone] Allergies Active Allergy Reactions Criticality Noted Date Comments Amoxicillin Hives Medium Amoxicillin-Pot Clavulanate Hives,Other (See comments) High 09/25/2009 Yeast infection Erythromycin Nausea & Vomiting Low 09/25/2009 Sensitivity /gi upset Morphine Vomiting Low Potassium Clavulanate Hives Medium 05/03/2011 Medications lisinopriL (PRINIVIL,ZESTR IL) 10 mg tabletIndicatio ns:hypertension Take 1 tablet (10 mg total) by mouth nightly 8 Active biotin 10,000 mcg capsuleIndicati ons:to prevent hair loss Take 1 capsule (10,000 mcg total) by mouth nightly Active ibuprofen (ADVIL,MOTRIN) 400 mg tablet Take 2 tablets (800 mg total) by mouth every 6 (six) hours as needed for pain Active aspirin 81 mg enteric coated tabletIndicatio ns:primary prevention of coronary heart disease Take 1 tablet (81 mg total) by mouth nightly Active traZODone (DESYREL) 50 mg tabletIndicatio ns:insomnia associated with depression Take 1 tablet (50 mg total) by mouth nightly 1 Active atorvastatin (LIPITOR) 10 mg tabletIndicatio ns:hyperlipidem ia Take 1 tablet (10 mg total) by mouth nightly Active empagliflozin (JARDIANCE) 25 mg tabletIndicatio ns:type 2 diabetes mellitus Take 0.5 tablets (12.5 mg total) by mouth nightly Active cholecalciferol (VITAMIN D-3) 5,000 unit capsule Take 1,000 Units by mouth nightly Active ZINC ORALIndications :health Take 50 mg by mouth inventory accountant before breakfast Active albuterol HFA (PROVENTIL HFA,VENTOLIN HFA,PROAIR HFA) 90 mcg/actuation inhaler Active fluconazole (DIFLUCAN) 150 mg tablet Take 1 tablet (150 mg total) by mouth once Active FIASP 100 unit/mL (3 mL) pen for injectionIndica tions:Type 2 diabetes mellitus with hyperglycemia, with long-term current use of insulin ([facility]) Inject 5 Units under the skin 3 (three) times a day with meals ( Max daily dose 15 units ) 15 mL 3 5 12/31/19 26 Active LANTUS 100 unit/mL (3 mL) pen for injectionIndica tions:Type 2 diabetes mellitus with hyperglycemia, with long-term current use of insulin ([facility]) Inject 20-24 units under the skin nightly. Max daily dose : 24 75 mL 3 5 Active pen needle, diabetic (Pen Needle) 31 gauge x 5/16 needleIndicatio ns:Type 2 diabetes mellitus with hyperglycemia, with long-term current use of insulin ([facility]) Use to inject insulin subq 4 times daily 100 each 11 5 Active metFORMIN (GLUCOPHAGE) 1,000 mg tabletIndicatio ns:type 2 diabetes mellitus Take 2 tablets (2,000 mg total) by mouth nightly 180 tablet 1 5 Active Dexcom G7 Sensor deviceIndicatio ns:Type 2 diabetes mellitus with hyperglycemia, with long-term current use of insulin ([facility]) Change sensor every 10 days. 9 each 1 5 Active clobetasoL (TEMOVATE) 0.05 % external solution APPLY TO SCALP TWO TIMES A DAY NEEDED FOR ITCH (NO FACE) 5 Active fluocinolone (DERMA-SMOOTHE) 0.01 % external oil APPLY TO THE AFFECTED AREA TWO TIMES A DAY NEEDED FOR ITCH. NO LONGER THAN 4 WEEKS AND NO FACE. 5 Active Dexcom G7 Sensor device as directed 5 02/08/20 25 Discontinu ed(Reorder ) Hospital, Clinic, or Other Facility Administered Medication Ordered Dose Route Frequency Start Date End Date Status lidocaine (XYLOCAINE) 10 mg/mL (1 %) injection 1 mLIndications:Adminis tration of Local Anesthesia 1 mL One-Time Injection 02/14/2025 Ended methylPREDNISolone acetate (DEPO-medrol) injection 40 mgIndications:Arthrit is of carpometacarpal (CMC) joint of left thumb 40 mg intra-artic One-Time Injection 02/14/2025 5 Ended Active Problems Problem Noted Date Diagnosed Date Breast mass 02/14/2025 Chronic obstructive pulmonary disease with emphy sema 02/14/2025 Diarrhea 02/14/2025 GERD without esophagitis 02/14/2025 Herpes zoster without complication 02/14/2025 Insomnia 02/14/2025 Arthritis 02/14/2025 Osteoarthritis 02/14/2025 Plaque psoriasis 02/14/2025 Vitamin D deficiency 02/14/2025 Palpitations 04/08/2024 Herpes simplex 06/05/2023 Tear of rotator cuff 07/31/2022 Cubital tunnel syndrome on 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 Overview (07/11/2021): Added automatically from request for surgery [id number] Guyon syndrome, 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 Overview (07/11/2021): Added automatically from request for surgery [id number] Hypertension associated with diabetes 09/26/2020 Hyperlipidemia associated with type 2 diabetes m ellitus 09/26/2020 KEVIN on CPAP 09/26/2020 Type 2 diabetes mellitus 09/26/2020 Biceps tendinitis of right upper extremity 09/18 Overview (09/18/2020): Added automatically from request for surgery [id number] Glycosuria 04/29/2019 Bruise of nipple 12/02/2018 Overview (02/14/2025): Contusion of breast, unspecified breast, initial encounter;Recorded Elsewhere: No Location: [facility] Source: EHR Chronic: N Practice ID: [id number] Billable Time: 03:00:00 PM Lateral epicondylitis of left elbow 08/19/2018 Overview (08/19/2018): Added automatically from request for surgery [id number] Cyst of ovary 05/14/2018 Smoker 11/14/2017 Menopause present 11/14/2017 Overweight with body mass index (BMI) 25.0-29.9 03/31/2017 Disorder of rotator cuff 01/08/2016 Medial epicondylitis of elbow 01/08/2016 Pain in shoulder 10/12/2015 Elbow pain 10/05/2015 Postmenopausal bleeding 08/24/2014 Irregular intermenstrual bleeding 08/24/2014 Overview (02/14/2025): Metrorrhagia;Practice ID: [id number] Postcoital bleeding 08/08/2014 Atrophic vaginitis 03/26/2014 Dyspareunia 03/25/2014 Tobacco dependence syndrome 08/19/2013 Increased frequency of urination 08/19/2013 Depressive disorder 08/19/2013 Knee pain 05/28/2013 test negative 02/06/2012 Dysmenorrhea 02/06/2012 Encounter for screening for malignant neoplasm o f colon 06/27/2010 Encounters Date Type Department Care Team Description 02/14/2025 7:50 AM SUBSTATION OPERATOR CHIEF Office Visit [facility] [address] [place] [address] Aneesh Rees MD Arthritis of carpometacarpal (CMC) joint of left thumb (Primary Dx) 12/30/2024 9:30 AM CDT Office Visit [facility] [address] [place] [address] Armando Pittman MD Type 2 diabetes mellitus with hyperglycemia, with long-term current use of insulin (HCC) (Primary Dx); Hypertension associated with diabetes (HCC); Hyperlipidemia associated with type 2 diabetes mellitus (HCC) from Last 3 Months Immunizations Immunization Administration [...] Hyperlipidemia Psoriasis DM2 (diabetes mellitus, type 2) Tobacco dependency Chronic pain disorder right shou lder and arm PONV (postoperative nausea and vomiting) GERD (gastroesophageal reflux disease) well controlled Insomnia Sleep apnea 2015 CPAP Family History * Patient is adopted [...] Date Smoking Tobacco: Every Day Cigarettes 0.5 38 Started: 1987 Smokeless Tobacco: Never Alcohol Use [...] on file Legal Sex Female 1:04 AM SUBSTATION OPERATOR CHIEF Gender Identity Not on file Sexual Orientation Not on file Obstetrics History Para Term AB IAB SAB Ectopic Multiple Livin g Live Births 3 2 Date Outcome GA Total Labor Labor/2nd/3rd Weight Sex Type Anes PTL Caron A1 A5 Name Clin Para Para Last Filed Vital Signs Vital Sign Reading Time Taken Comments Blood Pressure 126/80 12/30/2024 9:08 AM CDT Pulse 105 12/30/2024 9:08 AM CDT Temperature 36.7 C (98.1 F) 08/19/2022 3:16 PM CDT Respiratory Rate 15 12/30/2024 9:08 AM CDT Oxygen Saturation 96% 04/08/2024 3:23 PM SUBSTATION OPERATOR CHIEF Inhaled Oxygen Concentration - - Weight 69 kg (152 lb 3.2 oz) 12/30/2024 9:08 AM CDT Height 157.5 cm (5' 2) 12/30/2024 9:08 AM CDT Body Mass Index 27.84 12/30/2024 9:08 AM CDT Plan of Treatment Health Maintenance Due Date Last Done Comments Albumin Creatinine Ratio, Urine 1962 Breast Cancer Screening-Mammogram 1962 Cervical Cancer Screening 1962 Colon Cancer Screening-Colonoscopy 1962 Depression Screening 1962 Hepatitis C Screening 1962 eGFR 1962 Dilated Eye Exam 1962 Foot Exam 1962 Hepatitis B Screening 1980 Regular Well Visit/Exam 18-64 1980 Pneumococcal vaccine <65 (1 of 2 - PCV) 1981 Zoster Vaccine (2 of 2) 08/01/2020 06/06/2020 DTaP/Tdap/Td Vaccine (2 - Td or Tdap) 12/26/2023 12/25/2013 Influenza Vaccine (#1) 2024 , 01/03/2018, 02/03/2017, Additional history exists Lipid Panel 04/03/2025 04/03/2024 Hemoglobin A1C 06/30/2025 12/30/2024 Medical Devices Implanted Type Area Servomechanism Designer Device Identifier Shelf Expiration Date Model / Serial / Lot Free Stle Hien N/A: Arm Description:Free style hien [employer] Ar-3670 Set Implant Ar[employer]rex Fibertak Biceps Sterile Latex Free - [id number] Implanted:Qty: 1 on 09/28/2020 by Enoc Cullen MD at [facility] [place] Right: Shoulder [employer] 07/31/2025 AR-3670 / / [id number] [employer] Ar-2324 Bcm Swivelock 4.75mm 24.5mm Self Punch Vent Shoulder [place] Suture - [id number] Implanted:Qty: 1 on 09/28/2020 by Enoc Cullen MD at [facility] [place] Right: Shoulder [employer] 05/31/2024 AR-2324BC M / / [id number] [employer] Swivelock C 4.75mm 19.1mm Closed Eyelet Vent [place] Suture Ar-2324bcc - [id number] Implanted:Qty: 1 on 08/19/2022 by Levar Morris MD at [facility] Right: Shoulder [employer] [id number] 05/31/2026 AR-2324BC C / / [id number] [employer] Swivelock C 4.75mm 19.1mm Closed Eyelet Vent [place] Suture Ar-2324bcc - [id number] Implanted:Qty: 1 on 08/19/2022 by Levar Morris MD at [facility] Right: Shoulder [employer] [id number] 05/31/2026 AR-2324BC C / / [id number] [employer] Arthrex Fibertak Tape 3 Load Rotator Cuff [place] Suture Sterile Latex Free Ar-3633 - [id number] Implanted:Qty: 1 on 08/19/2022 by Levar Morris MD at [facility] Right: Shoulder [employer] 03/02/2027 AR-3633 / / [id number] Procedures Procedure Name Priority Date/Time Associated Diagnosis Comments [place] ARTHROCENTESIS ASPIR&/INJ SMALL JT/BURSA W/O US Routine 02/14/2025 7:50 AM SUBSTATION OPERATOR CHIEF Arthritis of carpometacarpal (CMC) joint of left thumb POCT HEMOGLOBIN A1C Routine 12/30/2024 9 :12 AM CDT Type 2 diabetes mellitus with hyperglycemia, with long-term current use of insulin (HCC) POCT GLUCOSE Routine 12/30/2024 9:12 AM CDT Type 2 diabetes mellitus with hyperglycemia, with long-term current use of insulin (HCC) LIPID PANEL Routine 04/03/2024 4:10 PM SUBSTATION OPERATOR CHIEF from Last 3 Months or Most Recently Relevant to Health Maintenance Results * [place] ARTHROCENTESIS ASPIR&/INJ SMALL JT/BURSA W/O US (02/14/2025 7:50 AM SUBSTATION OPERATOR CHIEF) Narrative Aneesh Rees MD - 02/14/2025 7:50 AM SUBSTATION OPERATOR CHIEF Aneesh Rees MD 02/14/2025 8:10 AM Small Joint Injection: L thumb CMC Performed by: Aneesh Rees MD Authorized by: Aneesh Rees MD Procedure Details: Location: Thumb Site: L thumb CMC Medications: 1 mL lidocaine 10 mg/mL (1 %); 40 mg methylPREDNISolone acetate 40 mg/mL us Aneesh Rees MD IN CLINIC/BEDSIDE ORDERAB LES Final Result * (ABNORMAL) POCT hemoglobin A1c (12/30/2024 9:12 AM CDT) Hemoglobin A1C, POC 7.1(A) 4.0 - 5.6 % Blood 12/30/2024 9:12 AM CDT us Armando Cortes MD POINT OF CARE TEST ORDERABLES Final Result * POCT glucose (12/30/2024 9:12 AM CDT) Glucose Blood, POC 273 Normal Fasting 70 - 100, Random <200 mg/dL Blood 12/30/2024 9:12 AM CDT us Armando Cortes MD POINT OF CARE TEST ORDERABLES Final Result * Lipid panel (04/03/2024 4:10 PM SUBSTATION OPERATOR CHIEF) SCRIBED Cholesterol, Total 119 <200 [facility] SCRIBED HDL 52 >40 [facility] SCRIBED LDL 54 <100 [facility] SCRIBED Triglycerides 61 <150 [facility] Blood us Historical Provider LAB BLOOD ORDERABLES Edit ed Result - Final [facility] from Last 3 Months or Most Recently Relevant to Health Maintenance Insurance [facility] [employer] [address] [place] [address] [employer] Care Teams Well Drill Operator Cable Tool Relationship Specialty Start Date End Date Vandana Langley NP [address] [place] [id number] PCP - General Internal Medicine 12/08/24
--- OUTSIDE RECORDS SUMMARY | 2025-02-21 16:43 | XMS_ITS | Data Portability ---
Author Organization [facility] [place] Address [address] [place] [address] [place] [address] Care Team Providers Care Retail Event Coordinator Name Role Phone ADELAIDE RANGEL Primary Care Provider [phone] Assessment No assessment recorded. Plan of Treatment Reminders Order Date Submit Date Provider Last Modified By Organization Details Last Modified Time Details Appointments None recorded. Lab ova1, serum 2023 [facility] (Lab), [address], [place], [address], 13:07:31 Referral None recorded. Procedures None recorded. Surgeries None recorded. Imaging US, transvagina l 2023 [email or web address] [place], [address], [address], [place], [address], 23:31:51 Medication Orders None recorded. Patient TargetsNo targets recorded. Patient InstructionsNo instructions recorded. Reason for Referral None Reported. Results Created Date Observation Date Name Description Value Unit Range Abnormal Flag Note LastModifiedBy Organization Detail LastModifiedTime 12/08/1912/08/2023 OVA 1 scan result See Bakari damon Result Not Available [facility] (Lab) [address], [place], [address], 12/11/2023 13:07:31 06/02/19 24 06/02/2023 US, trans vagin al No observ ation record ed. [email or web address] [place] [address], [place], [address], 06/02/2023 18:00:25 06/02/1906/02/2023 US, trans vagin al No observ ation record ed. [email or web address] [address], [place], [address], 06/02/2023 20:36:59 12/05/1912/05/2023 US, trans vagin al No observ ation record ed. [email or web address] [place] [address], [place], [address], 12/05/2023 17:05:17 12/05/1912/05/2023 US, trans vagin al No observ ation record ed. Stefani [address], [place], [address], 12/08/2023 18:03:12 Result Notes None recorded. Problems Name Problem SNOMED Code Status Onset Date Resolution Date Notes Provider Name and Address Organization Details Recorded Time Screenin g for malignan t neoplasm of colon Completed 201008/24/2020 Special screenin g for malignan t neoplasm s, colon;Pr actice ID: 0001 Mónica [facility] 12:15:09 Dysmenor aly [id number] Completed 201108/24/2020 Dysmenor aly;Rec orded Elsewher e: No Locat ion: [facility] S ource: EHR Coordinating Producer ansatasia: N Practi ce ID: 0001 Emanuel lable Time: 01:30:00 PM Mónica Martin [facility] 12:13:52 Pregnanc y test negative [id number] Completed 201108/24/2020 Pregnanc y examinat ion or test, negative result;R ecorded Elsewher e: No Locat ion: [facility] S ource: EHR Coordinating Producer anastasia: N Rubioti ce ID: 0001 Emanuel lable Time: 01:30:00 PM Mónica ivey [facility] 12:14:56 Screenin g for malignan t neoplasm of cervix Completed 201308/24/2020 Screenin g for malignan t neoplasm s of the cervix;R ecorded Elsewher e: No Locat ion: [facility] S ource: EHR Coordinating Producer anastasia: Y Rubioti ce ID: 0001 Emanuel lable Time: 04:45:00 PM Mónica Martin [facility], [facility] 12:15:07 Screenin g for malignan t neoplasm of rectum Completed 201308/24/2020 Screenin g for malignan t neoplasm s of the rectum;R ecorded Elsewher e: No Locat ion: [facility] S ource: EHR Coordinating Producer anastasia: N Rubioti ce ID: 0001 Emanuel lable Time: 04:45:00 PM Mónica Martin [facility] 12:15:12 Tobacco dependen ce syndrome [id number] Completed 201308/24/2020 Tobacco Abuse;Re corded Elsewher e: No Locat ion: [facility] S ource: EHR Coordinating Producer anastasia: India Bergeronti ce ID: 0001 Emanuel lable Time: 04:45:00 PM Mónica Martin [facility] 12:16:07 Depressi ve disorder [id number] Completed 201308/24/2020 Depressi on;Recor ded Elsewher e: No Locat ion: [facility] S ource: EHR Coordinating Producer anastasia: N Rubioti ce ID: 0001 Emanuel lable Time: 04:45:00 PM Mónica Martin [facility] 12:13:17 Speciali zed medical examinat ion Completed 201308/24/2020 Gynecolo gical Examinat ion;Tamir rded Elsewher e: No Locat ion: Izabel felix [facility] S ource: EHR Coordinating Producer anastasia: N Practi ce ID: 0001 Emanuel lable Time: 04:45:00 PM Mónica Martin [facility], [facility] 12:15:20 Adult health examinat ion Completed 201308/24/2020 Routine Medical Exam;Rec orded Elsewher e: No Locat ion: Izabel felix [facility] S ource: EHR Coordinating Producer anastasia: N Practi ce ID: 0001 Emanuel lable Time: 04:45:00 PM Mónica [facility], [facility] 12:13:11 Increase d frequenc y of urinatio n [id number] Completed 201308/24/2020 Urinary frequenc y;Practi ce ID: 0001 Mónica [facility], [facility] 12:14:01 Menopaus al symptom [id number] Completed 201308/24/2020 Menopaus al or female climacte riaz states;R ecorded Elsewher e: No Locat ion: [facility] S ource: EHR Coordinating Producer anastasia: N Practi ce ID: 0001 Emanuel lable Time: 09:15:00 AM Mónicatucker Martin [facility] 12:14:10 Vaginiti s and vulvovag initis Completed 201308/24/2020 Vaginiti s;Record ed Elsewher e: No Locat ion: [facility] S ource: EHR Coordinating Producer anastasia: N Practi ce ID: 0001 Emanuel lable Time: 01:30:00 PM Mónica Martin [facility] 12:16:09 Dyspareu aura [id number] Completed 201408/24/2020 Dyspareu aura;Tamir rded Elsewher e: No Locat ion: Rossy elvira [facility] S ource: EHR Coordinating Producer anastasia: N Practi ce ID: 0001 Emanuel lable Time: 03:30:00 PM Mónica ivey [facility] 12:13:55 Postcoit al bleeding [id number] Completed 201408/24/2020 Postcoit al bleeding ;Recorde d Elsewher e: No Locat ion: Audreyjerrell elvira [facility]: N Practi ce ID: 0001 Emanuel lable Time: 04:00:00 PM Mónica ivey [facility] 1 12:14:16 Pre-surg shelley evaluati on Completed 201408/24/2020 Pre-oper ative examinat ion, unspecif ied;Tamir rded Elsewher e: No Locat ion: [facility] S ource: EHR Coordinating Producer anastasia: N Practi ce ID: 0001 Emanuel lable Time: 08:30:00 AM Mónica Martin [facility] 1 12:14:53 Irregula r intermen strual bleeding [id number] Completed 201408/24/2020 Metrorrh agia;Pra ctice ID: 0001 Móncia ivey [facility] 12:14:04 Postoper ative follow-u p visit Completed 201408/24/2020 Follow-u p examinat ion, followin g unspecif ied surgery; Recorded Elsewher e: No Locat ion: [facility] S ource: EHR Coordinating Producer anastasia: N Practi ce ID: 0001 Emanuel lable Time: 10:15:00 AM Mónica ivey [facility] 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 12:15:16 Acute vaginiti s [id number] Completed 201608/24/2020 Vaginiti s;Record ed Elsewher e: No Locat ion: Izabel felix [facility] S ource: EHR Coordinating Producer anastasia: N Rubioti ce ID: 0001 Emanuel lable Time: 03:30:00 PM Mónica ivey [facility] 12:13:08 Body mass index 25-29 - overweig ht [id number] Completed 201708/24/2020 Body mass index (BMI) 28.0-28. 9, adult;Re corded Elsewher e: No Locat ion: Izabel [facility] S ource: EHR Coordinating Producer anastasia: N Rubioti ce ID: 0001 Emanuel lable Time: 04:00:00 PM Mónica ivey [facility] 12:13:[address] Concept Completed 201708/24/2020 Encounte r for general adult medical exam w abnormal findings ;Practic e ID: 0001 Mónica ivey [facility] 12:15:04 Menopaus e present [id number] Completed 201708/24/2020 Menopaus e;Record ed Elsewher e: No Locat ion: Audreysuresh elvira [facility] S ource: EHR Coordinating Producer anastasia: N Rubioti ce ID: 0001 Emanuel lable Time: 11:30:00 AM Mónica ivey [facility] 12:14:08 Superfic ial pain on intercou rse [id number] Completed 201708/24/2020 Superfic ial (introit al) dyspareu aura;Tamir rded Elsewher e: No Locat ion: Izabel felix [facility] S ource: EHR Coordinating Producer anastasia: N Heather ce ID: 0001 Emanuel lable Time: 03:30:00 PM Mónica Martin [facility] 12:15:46 Postmeno pausal bleeding [id number] Completed 201808/24/2020 Postmeno pausal bleeding ;Recorde d Elsewher e: No Locat ion: Izabel felix [facility] S ource: [facility] anastasia: Gerson Romero ce ID: 0001 Emanuel lable Time: 05:30:00 PM Mónica Martin [facility] 12:14:18 Cyst of ovary Completed 201808/24/2020 Unspecif ied ovarian cyst, unspecif ied side;Rec orded Elsewher e: No [facility]: [facility] anastasia: Gerson Romero ce ID: 0001 Emanuel lable Time: 05:30:00 PM Mónica Martin [facility] 12:13:15 Lesion of ovary Completed 201808/24/2020 Other ovarian cyst, left side;Rec orded Elsewher e: No [facility] S ource: [facility] anastasia: Gerson Romero ce ID: 0001 Emanuel lable Time: 03:00:00 PM Mónica Martin [facility] 12:13:20 Nipple bruised [id number] Completed 201808/24/2020 Contusio n of breast, unspecif ied breast, initial encounte r;Record ed Elsewher e: No Locat ion: Izabel felix [facility] S ource: [facility] anastasia: Gerson Romero ce ID: 0001 Emanuel lable Time: 03:00:00 PM Mónica [facility] 12:14:13 Glycosur ia [id number] Completed 201908/24/2020 Glycosur ia;Recor ded Elsewher e: No [facility]at [facility]ce: EHR Coordinating Producer anastasia: N Heather ce ID: 0001 Emanuel lable Time: 03:45:00 PM Mónica ivey, [facility] [address] 12:13:[address] Concept Completed 201908/24/2020 Encntr for general adult medical exam w/o abnormal findings ;Recorde d Elsewher e: No Locat ion: Izabel felix [facility] S ource: EHR Coordinating Producer anastasia: N Practi ce ID: 0001 Emanuel lable Time: 03:45:00 PM Mónica ivey, [facility] 1 12:15:14 Hyperten sive disorder 32951318 Active 2023 Izabel Bashir [facility], [facility] 4 16:54:57 Hypercho lesterol emia 45607736 Active 2023 Izabel Bashir [facility], [facility] 4 16:55:19 Herpes simplex 90223332 Active 2023 Izabel Bashir [facility], [facility] 4 16:55:28 Diabetes mellitus 76708097 Active 2023 Izabel Bashir [facility], [facility] 4 19:51:19 Problem Notes None recorded. Procedures Surgical History Date Name Laterality Status Provider Name and Address Organization Details Recorded Time 02/17/20 24 SALPINGO-OOPHORECT MALACHI, LAPAROSCOPIC (SURG) completed Eloisa Suazo [facility] 02/17/2024 10:18:54 03/11/19 24 Date of Last Pap Smear completed Izabel Bashir [facility] 06/05/2023 16:55:49 11/02/19 23 Date of Last Mammogram completed Carmela Swanson [facility] 03/11/2023 17:05:32 03/03/19 22 procedure on shoulder completed Izabel Bashir [facility] 06/06/2023 19:45:59 03/03/19 20 procedure on shoulder completed Izabel Bashir [facility] 12/08/2023 17:15:44 03/03/19 18 [address] completed [facility] 12/08/2023 17:18:50 03/03/19 17 [facility] 17:18:47 05/22/19 16 completed [facility] 09/07/2020 14:16:05 05/22/19 16 Date of Last Colonoscopy completed [facility] 09/07/2020 14:16:05 05/22/[address] [facility] 06/06/2023 19:48:30 08/25/[address] [facility] 06/06/2023 19:38:22 08/15/[address] [facility] 06/06/2023 19:47:49 03/03/[address] [facility] 06/06/2023 19:44:55 03/03/19 10 Neck spine disk [facility] 19:49:25 03/03/19 05 total knee replacement completed Flaquita Patel [facility] 09/14/2019 15:58:36 03/03/19 [address] [facility] 12/08/2023 17:16:32 03/03/19 03 Knee arthroscopy/surger y completed [facility] 12/08/2023 17:16:19 03/03/19 00 reconstruction of anterior cruciate ligament of knee joint completed [facility] 06/06/2023 19:43:49 03/03/19 00 Knee arthroscopy/surger y completed [facility] 12/08/2023 17:16:15 10/09/[address] [facility] 12/08/2023 17:18:12 03/03/[address] [facility] 06/06/2023 19:48:16 12/05/[address] [facility] 12/08/2023 17:18:06 03/03/[address] [facility] 06/06/2023 19:43:14 03/03/18 84 Dilation and Curettage completed [facility] 09/14/2019 15:55:30 03/03/18 84 removal of ovarian cyst completed [facility] 09/14/2019 15:55:50 03/03/18 83 repair of ovary completed [facility] 09/14/2019 15:56:11 03/03/18 83 Laparoscopy completed [facility] 09/14/2019 15:56:29 03/03/[address] [facility] 12/08/2023 17:15:27 03/03/18 [address]ilation [address] [facility] 12/08/2023 17:14:47 03/03/[address] [facility] 12/08/2023 17:15:10 03/03/[address] [facility] 06/06/2023 19:47:17 03/03/18 80 Dilation [address] Curettage completed [facility] 12/08/2023 17:14:37 03/03/18 78 graft of skin to skin completed [facility] 06/06/2023 19:46:55 03/03/18 78 graft of skin to skin completed [facility] 12/08/2023 17:14:[address] [facility] 12/08/2023 17:09:31 Imaging Results None recorded. Procedure Notes None recorded. Medical Equipment None Reported. Allergies Allergen ID Allergen Name Allergen Category Reaction Reaction Severity Criticality Documentation Date Start Date Code Code System Note Provider Name and Address Organization Details Recorded Time 1323 amoxicill in medicatio n Not available Not available Not available 09/14/2019 723 RxNorm Flaquita Jorge [facility] 0 15:53:50 1324 erythromy linn medicatio n Not available Not available Not available 09/14/2019 4053 RxNorm Flaquita Patel [facility] 0 15:54:02 1325 morphine medicatio n Not available Not available Not available 09/14/2019 7052 RxNorm Flaquita Jorge [facility] 0 15:54:10 1326 potassium medicatio n Not available Not available Not available 09/14/2019 8588 RxNorm Izabel Bashir [facility] 4 17:09:40 40743 Augmentin medicatio n Not available Not available Not available 02/13/2023 97226 2 RxNorm Mónica Veronica [place], [place] - [facility] 3 12:12:04 Medications Name Sig Start [...] Prescrib ed Elsewher e: No Locat ion: [facility] odify By: marybel casas DateTime : 03/05/19 19 12:23:54 PM Not Available Not Available Not Available fluconazo le 150 mg tablet take 1 tablet by oral route once 06/04 completed Not Available Not Available Not Available metoprolo l succinate ER 50 mg tablet,ex tended release 24 hr take 1 tablet by oral route every day 04/09 completed Prescrib ed Elsewher e: Yes [facility] By: [email or web address] Encount er DateTime : 05/03/19 12 03:30:00 PM Not Available Not Available Not Available clobetaso l 0.05 % topical cream 02/10 completed Not Available Not Available Not Available Wellbutri n SR 150 mg tablet, 12 hr sustained -release TAKE 1 TABLET BY ORAL ROUTE EVERY DAY 03/25 completed Prescrib ed Elsewher e: No Locat ion: [facility] odify By: cathy casas DateTime : 10/13/19 14 01:38:04 PM Not Available Not Available Not Available Rachael Low Dose Aspirin 81 mg tablet,de layed release take 1 tablet (81MG) by oral route every day 02/13 completed Prescrib ed Elsewher e: No Locat ion: [facility] odify By: cathy floresshannon DateTime : 02/06/20 12 01:30:00 PM Not [...] Prescrib ed Elsewher e: No Locat ion: [facility] odify By: cathy floresshannon DateTime : 01/20/20 14 01:30:00 PM Not Available Not Available Not Available Flagyl 500 mg tablet take 1 tablet by oral route every 12 hours 02/13 completed Prescrib ed Elsewher e: No Locat ion: [facility] odify By: cathy casas DateTime : 10/15/19 17 03:37:04 PM Not [...] Prescrib ed Elsewher e: No Locat ion: [facility] odify By: cathy casas DateTime : 09/21/19 14 09:15:00 AM Not Available Not Available Not Available lisinopri l 10 mg tablet 2023 active Not Available Not Available Not Avai lable CombiPatc h 0.05 mg-0.25 mg/24 hr transderm al apply 1 patch by transder mal route 2 times every week 04/29 completed Prescrib ed Elsewher e: No Locat ion: Izabel felix [facility] odify By: marybel casas DateTime : 04/09/19 19 04:00:00 PM Not [...] Elsewher e: No Locat ion: Izabel felix [facility] odify By: christie Salinast er DateTime : 07/01/19 12 03:42:28 PM [...] Elsewher e: No Locat ion: Izabel felix [facility] odify By: alberto Salinas ter DateTime : 12/08/19 16 11:47:54 AM Not Available Not Available Not Available Wellbutri n XL 150 mg 24 hr tablet, extended release take 1 tablet by oral route every day 04/29 completed Prescrib ed Elsewher e: Yes Loca tion: Izabel felix [facility] odify By: marybel casas DateTime : 02/28/20 18 03:30:00 PM Not Available Not Available Not Available nitrofura ntoin monohydra te/macroc rystals 100 mg capsule 02/13 completed Not Available Not Available Not Available Lantus U-100 Insulin 100 unit/mL subcutane ous cartridge inject by subcutan eous route as per insulin protocol 09/07 completed Prescrib ed Elsewher e: Yes Loca tion: Izabel felix [facility] odify By: helena ruiz DateTime : [...] e Short Pen Needle 31 gauge x 5/16 02/10 completed Not Available Not Available Not Available estradiol -norethin drone acet 0.5 mg-0.1 mg tablet take 1 tablet by oral route every day 04/09 completed Prescrib ed Elsewher e: No Locat ion: Izabel [facility] odify By: [email or web address] Encount er DateTime : 11/15/19 18 11:30:00 AM Not Available Not Available Not [...] active Not Available Not Available Not Avai deejaythom JohnsonSandragen U-300 Insulin 300 unit/mL (1.5 mL) subcutane ous pen active Not Available Not Available Not Available FreeStyle Hien 2 Sensor kit 02/10 completed Not Available Not Available Not Available FreeStyle Hien 2 [place] 02/13 completed Not Available Not Available Not Available Vitals Date Recorded Body height Body mass index (BMI) Body weight Systolic And Diastolic Provider Name and Address Organization Details Last Updated DateTime 06/05/2023 159.39 cm 26.1 kg/m2 87097.49 g 150/78 mm[Hg] Izabel Bashir [facility] 06/05/2023 16:53:38 Date Recorded Body height Body mass index (BMI) Body weight Systolic And Diastolic Provider Name and Address Organization Details Last Updated DateTime 12/08/2023 159.39 cm 25.4 kg/m2 28619.12 g 150/69 mm[Hg] Izabel Bashir [facility] 12/08/2023 17:09:16 Date Recorded Body height Body mass index (BMI) Body weight Systolic And Diastolic Provider Name and Address Organization Details Last Updated DateTime 02/11/2024 159.39 cm 25.7 kg/m2 29839.3 g 154/77 mm[Hg] Carmela [facility] 02/11/2024 16:48:31 Date Recorded Body height Body mass index (BMI) Body weight Systolic And Diastolic Provider Name and Address Organization Details Last Updated DateTime 02/26/2024 159.39 cm 25.7 kg/m2 77422.3 g 132/78 mm[Hg] Carmela [facility] 02/26/2024 09:43:06 Social History Question Answer Notes LastModified by Organizat ion Details LastModified Time Tobacco Smoking Status Current Every Day Smoker Payton ivey [facility] 03/11/2023 16:40:13 Do You Have An Advance Directive? No Information n ot available 08/24/2020 How Many Years Have You Consumed Alcohol? 35 Information not available 09/07/2020 Are You Blind Or Do You Have Difficulty Seeing? No Information n ot available 08/24/2020 What Is Your Level Of Caffeine Consumption? Moderate Information not available 08/24/2020 How Much Tobacco Do You Chew? None Information not available 08/24/2020 In The 14 Days Before Symptom Onset, Have You Had Close Contact With A Laboratory-confirm ed COVID-19 While That Case Was Ill? No Information n ot available 08/24/2020 In The 14 Days Before [...] Of Diet Are You Following? REGULAR Information n ot available 08/24/2020 What Is The Highest Grade Or Level Of School You Have Completed Or The Highest Degree You Have Received? [id number] Information not available 08/24/2020 Are There Any Guns Present In Your Home? Yes Information not available 08/24/2020 Have You Ever Been Counseled For Unhealthy Alcohol Use? No [email or web address] Information not available 06/05/2023 Do You Use [...] PPD Information not available 08/24/2020 Do You Use Sunscreen Routinely? No Information not available 08/24/2020 Has Tobacco Cessation Counseling Been Provided? No [email or web address] Information not available 06/05/2023 How Many Years Have You Smoked Tobacco? 35 Information not available 09/07/2020 Have You Used IV Drugs? No Information not available 08/24/2020 Do You Have Difficulty Walking Or Climbing Stairs? No [email or web address] Information not available 06/05/2023 Sex: Unknown Functional Status Question Answer Note LastModified by Organizat ion Details LastModified Time Do you use any illicit or recreational drugs? No Information not available 08/24/2020 Do you or have you ever used any other forms of tobacco or nicotine? No [email or web address] Information not available 06/05/2023 What is your level of alcohol consumption? Occasional Information not available 09/15/2019 Are you able to walk independently without assistance or assistive devices? [email or web address] Information not available 08/24/2020 Are you able to care for yourself independently? 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 No [email or web address] Information not available 06/05/2023 What is your exercise level? Occasional Information not available 09/15/2019 Mental Status Question Answer Note LastModified by Organization D etails LastModified Time Do you feel stressed (tense, restless, nervous, or anxious, or unable to sleep at night)? [id number] Information not available 08/24/2020 Family History Relationship Description Onset Age of this Age Resolved Age Notes LastModified by Organization Details LastModified Time Mother Diabetes mellitus [email or web address] Not available 2019 15:49:47 Mother Malignant neoplasm of cervix uteri jgumber Not available 15:50:05 Medical History Condition Response Allergies (Food, [...] Diagnosis SNOMED-CT Code Diagnosis ICD10 Code Diagnosis IMO Codes Diagnosis Note [id number] Thania Maxwell CNM [facility] [address] [address] 09/15/2019 09:56:56 09/15/2019 10:35:44 Mastodynia of left breast [id number] 1156157 N64.4 Tenderness in left breast. History of benign lump (per patient). Diagnostic mammogram with ultrasound if needed. [id number] Michael Mcdonald MD [place] [address] [address] 08/24/2020 11:59:46 08/25/2020 09:51:56 Lesion of vulva [id number] N90.89 This patient is a 60-year-ol d [...] that at the for an appointmen t [id number] EJ Bobby-[facility] [address] [address] 09/07/2020 14:03:15 09/07/2020 14:52:01 Gynecologic examination [id number] Z01.419 Take Calcium with Vitamin D 12-1500mg daily. Do monthly self breast exams. It is advised to get annual flu shot in the fall and she could obtain at [facility] or [facility] clinic. If you haven't received the Tdap [...] exa 0rderedmam mo ordered Screening mammography [id number] Z12.31 Postmenopa usal osteopenia [id number] M85.80 Vaginitis 03825520 N76.0 Has DM.On insulinNot es she will get yeast infection at least every other month.1 diflucan usually clears it up.Difluca n with a few RF sent Has f/u Dr. Mcdonald for left buttocks abscess/cy stic lesion coming up.This area is doing well & now non-inflam ed and non-tender but still advise f/u. [id number] Michael Mcdonald MD [place] [address] [address] 02/13/2023 11:51:41 02/13/2023 14:48:49 Pain in pelvis [id number] R10.2 62-year-ol d female with pelvic pain. She is history of ovarian cysts. She has sharp left-sided pelvic pain. It is intermitte nt. To obtain ultrasound . She is a normal exam. she will follow-up after ultrasound to discuss a treatment plan. [id number] Michael Mcdonald MD [facility] [place] [address] [address] 02/18/2023 16:15:42 02/18/2023 17:11:48 Pain in pelvis 16892738 R10.2 62-year-ol d female with pelvic pain. She is history of ovarian cysts. She has sharp left-sided pelvic pain. It is intermitte nt. To obtain ultrasound . She is a normal exam. she will follow-up after ultrasound to discuss a treatment plan. [id number] Michael Mcdonald MD [facility] [place] [address] [address] 02/25/2023 15:54:24 02/25/2023 17:09:49 Pain in pelvis 44222224 R10.2 Mass of ovary [id number] R19.09 this patient is a 62-year-ol d [...] ce. More than 50% was counseling . [id number] Latoya Moreno , [facility] [address] [address] 03/11/2023 16:40:03 03/11/2023 18:49:38 Gynecologic examination [id number] Z01.419 Take Calcium with Vitamin D 12-1500mg daily. Do monthly self breast exams. It is advised to get annual flu shot in the fall and she could obtain at [facility] or [facility] clinic. If you haven't received the Tdap [...] if need referral for this service. Vaginitis 17718597 N76.0 Diflucan sent PRN use for yeast [id number] Michael Mcdonald MD [place] [address] [address] 06/02/2023 16:21:43 06/02/2023 17:06:36 Ultrasound scan abnormal [id number] R93.89 [id number] Michael Mcdonald MD [place] [address] [address] 06/05/2023 16:20:05 06/05/2023 17:37:06 Mass of ovary 744690109 R19.09 63-year-ol d female who presents for follow-up on ovarian lesion. Left ovary was thought to have a dermoid. Looks less conspicuou s today. Smaller lesion. Less luminous. Agreed to follow-up again in 6 months with ultrasound . She has no pain. [id number] Michael Mcdonald MD [place] [address],[facility] [place] [address] 12/05/2023 16:20:12 12/08/2023 08:59:28 Ultrasound scan abnormal [id number] R93.89 [id number] Michael Mcdonald MD [place] [address] [address] 12/08/2023 16:39:48 12/11/2023 10:31:16 Mass of ovary 329355608 R19.09 63-year-ol d female who presents for [...] 20 minutes on her care in total. [id number] Michael Mcdonald MD [place] [address],[place] [address] 02/11/2024 16:13:15 02/11/2024 17:27:31 Cyst of ovary 75906445 N83.209 63-year-ol d female with left ovarian cyst. We agreed to perform left salpingo-o ophorectom y. She understand s the risks, benefits, and alternativ es. She has completed the informed consent process and is ready to proceed. [id number] Michael Mcdonald MD [place] [address] [address] 02/26/2024 09:29:33 02/26/2024 10:23:41 Postoperative care [id number] Z48.89 This patient is a 63-year-ol d [...] None Recorded Advance Directives Directive N: Payers Insurance Date Sequence Insurance Name Policy Number Policy Oliver Covered Member ID Oliver Member ID Guarantor Name 02/26/2024 1 [facility] [id number] Tabby Girard [id number] Tabby Girard Notes Date Note Type Note Provider Name and Address Organization Details Recorded Time 06/05/2023 text/html 63-year-old female who presents for follow-up on ovarian lesion. Left ovary was thought to have a dermoid. Looks less conspicuous today. Smaller lesion. Less luminous. Agreed to follow-up again in 6 months with ultrasound. She has no pain. Michael Mcdonald MD [address], [place], [address], [facility] 06/05/2023 17:36:37 12/08/2023 text/html 63-year-old female who presents for follow-up on ovarian lesion. Reviewed the results again today. Essentially stable. [id number] worrisome. Discussed removal. Possible dermoid. Agreed to tumor marker study. She will obtain tumor marker study. We will have follow-up ultrasound in a couple of months. We will consider removal of the ovary again. Believe it should be removed. I expressed that to her. I spent over 20 minutes on her care in total. Michael Mcdonald MD [address], [place], [address], [facility] 12/10/2023 17:31:36 02/11/2024 text/html 63-year-old female with a persistent, mildly complex ovarian cyst. [...] infection. Michael Mcdonald MD [address], [place], [address], [facility] 02/11/2024 17:25:22 02/26/2024 text/html This patient is a 63-year-old female who presents for postop follow-up. She is 1 week postop from a laparoscopic right salpingo-oophorect malachi. Her incisions are clean dry and intact. She has no complaints. She is recovering normally. She will follow up as needed. Michael Mcdonald MD [address], [place], [address], [facility] 02/26/2024 10:23:14 OBGyn Episode Ob Episode Information Episode Created Date Number of Fetuses Patient Bloodtype Patient rh Status Prepregnancy Weight lbs Domestic Partner Domestic Partner Phone Father Name Candle Molder Hand Status 09/15/19 20 1 CLOSED Fetus Data First Name Last [...] Domestic Partner Domestic Partner Phone Father Name Candle Molder Hand Status 09/15/19 20 1 CLOSED Fetus Data First Name Last [...] Domestic Partner Domestic Partner Phone Father Name Candle Molder Hand Status 09/15/19 20 1 CLOSED Fetus Data First Name Last [...]
== END 2025-02-21 15:02 | disposition home or self-care (01) ==
LOC: ANHFOHIMG 15:03
PROVIDERS: PCP Nurse Practitioner; Visit Provider Nurse Practitioner
DX: Z12.31 Encounter for screening mammogram for malignant neoplasm of breast (principal)
CPT/HCPCS: 77063; 77067